=== PATIENT | female | born 1940 | race Caucasian/White ===

== ENCOUNTER 2017-03-05 10:27 | Observation (INO) | payer OTHER, BC ==
[~2017-03-05] VITALS: Ht 167.6 cm; Wt 85.8 kg
[2017-03-05] MEDS ORDERED: SODIUM CHLORIDE 0.9% 1000ML 1,000 ML IV STA (11:58)
[2017-03-05] MEDS ORDERED: ONDANSETRON INJ 2 MG/ML 2 ML VIAL IV STA (11:58)
--- NOTE | 2017-03-05 12:03 | EMERGENCY ROOM VISIT NOTE ---
History Report prepared by Marcio: Heather Allen Under the Supervision of: Dr. Juan Rutledge M.D. First contact with patient: 11:51 Chief Complaint: WEAKNESS Stated Complaint: WEAK;LIGHT HEADED Nursing Triage Summary: poor appetite x3 days History of Present Illness The patient is a 76 year old female who presents to the Emergency Room with complaints of persistent weakness for three days YARD HAND. She notes that she developed a coarse productive cough with phlegm three days ago. She notes her ribs hurt from all of the coughing. She currently rates her pain a 5/10 in severity. She notes vomiting, chills, loss of appetite, general weakness, and lightheadedness. She notes that she has not eaten much in three days. She denies any fevers or urinary symptoms. She denies any cardiac disease or lung disease. She received the flu shot this year. She was able to take her blood pressure medication for the first time today since the onset of her symptoms. Source of History: patient Onset: three days YARD HAND Position: other (global ) Symptom Intensity: 5/10 Quality: other (weakness) Timing: other (persistent) Associated Symptoms: + chills, + vomiting, + weakness (general ), No fevers , No urinary symptoms Note: She notes loss of appetite and lightheadedness. Review of Systems See HPI for pertinent positives & negatives. A total of 10 systems reviewed and were otherwise negative. Past Medical & Surgical Medical Problems: (1) HLD (hyperlipidemia) (2) HTN (hypertension) (3) Osteoporosis Family History Family history was reviewed; no changes noted. Social History Smoking Status: Never Smoker Smokeless Tobacco Use: No Alcohol Use: occasionally Drug Use: none Marital Status: Housing Status: lives with significant other Occupation Status: unemployed Current/Historical Medications Scheduled Aspirin (Aspirin Ec), 81 MG PO DAILY Calcium Carbonate-Cholecalcife (Calcium 600 + D 600-200 mg-Unit), 1 TAB PO DAILY Hydrochlorothiazide (Hctz), 12.5 MG PO DAILY Ibuprofen (Advil), 400 MG PO BID Metoprolol Succ (Toprol Xl) (Toprol-Xl), 50 MG PO DAILY Multiple Vitamins W/ Minerals (Ocuvite Extra), 1 TAB PO DAILY Allergies Coded Allergies: No Known Allergies (Unverified , 03/05/17) Physical Exam Vital Signs Date Time Temp Pulse Resp B/P (MAP) Pulse Ox O2 Delivery O2 Flow Rate FiO2 03/05/17 13:27 66 27 03/05/17 13:26 139/84 03/05/17 12:16 65 03/05/17 12:12 60 18 03/05/17 11:57 63 23 03/05/17 11:55 97 Room Air 03/05/17 11:54 68 20 117/78 97 Room Air 03/05/17 11:46 117/78 03/05/17 10:51 37.2 70 18 121/77 93 Room Air Physical Exam GENERAL: Patient is in no acute distress. HEENT: No acute trauma, normocephalic atraumatic, mucous membranes dry, no nasal congestion, no scleral icterus. NECK: No stridor, no adenopathy, no meningismus, trachea is midline. LUNGS: Crackles at left base, though clear with deeper breathing, no wheezes. No respiratory distress. HEART: Without murmurs gallops or rubs, regular rate and rhythm. ABDOMEN: Soft, nontender, bowel sounds positive, no hernias, no peritonitis. EXTREMITIES: No cyanosis or edema, full range of motion of all the joints without pain or difficulty, no signs for acute trauma. NEUROLOGIC: Oriented x 3, no acute motor or sensory deficits, no focal weakness. SKIN: No rash, no jaundice, no diaphoresis. Medical Decision & Procedures ER Provider Diagnostic Interpretation: Radiology results as stated below per my review and radiologist interpretation: CHEST ONE VIEW PORTABLE CLINICAL HISTORY: EVALUATE ALTERED MENTAL STATUS/WEAKNESS dyspnea COMPARISON STUDY: No previous studies for comparison. FINDINGS: Moderate cardiomegaly. Lungs are clear. Diaphragms smooth. Costophrenic angles are sharp. IMPRESSION: Moderate cardiomegaly. Otherwise negative study. The above report was generated using voice recognition software. It may contain grammatical, syntax or spelling errors. Electronically signed by: Alejandro Jaquez M.D. 03/05/2017 12:18 PM Dictated Date/Time: 03/05/2017 12:17 PM Laboratory Results 03/05/17 11:45 Red Blood Count 4.61, Mean Corpuscular Volume 91.1, Mean Corpuscular Hemoglobin 31.7, Mean Corpuscular Hemoglobin Concent 34.8, Mean Platelet Volume 9.7, Neutrophils (%) (Auto) 50.2, Lymphocytes (%) (Auto) 29.4, Monocytes (%) (Auto) 19.8, Eosinophils (%) (Auto) 0.2, Basophils (%) (Auto) 0.2, Neutrophils # (Auto ) 2.79, Lymphocytes # (Auto) 1.63, Monocytes # (Auto) 1.10, Eosinophils # (Auto ) 0.01, Basophils # (Auto) 0.01 03/05/17 11:45 Test 03/05/17 11:45 03/05/17 12:06 03/05/17 13:20 White Blood Count 5.55 K/uL (4.8-10.8) Red Blood Count 4.61 M/uL (4.2-5.4) Hemoglobin 14.6 g/dL (12.0-16.0) Hematocrit 42.0 % (37-47) Mean Corpuscular Volume 91.1 fL (80-100) Mean Corpuscular Hemoglobin 31.7 pg (25-34) Mean Corpuscular Hemoglobin Concent 34.8 g/dl (32-36) Platelet Count 260 K/uL (130-400) Mean Platelet Volume 9.7 fL (7.4-10.4) Neutrophils (%) (Auto) 50.2 % Lymphocytes (%) (Auto) 29.4 % Monocytes (%) (Auto) 19.8 % Eosinophils (%) (Auto) 0.2 % Basophils (%) (Auto) 0.2 % Neutrophils # (Auto) 2.79 K/uL (1.4-6.5) Lymphocytes # (Auto) 1.63 K/uL (1.2-3.4) Monocytes # (Auto) 1.10 K/uL (0.11-0.59) Eosinophils # (Auto) 0.01 K/uL (0-0.5) Basophils # (Auto) 0.01 K/uL (0-0.2) RDW Standard Deviation 44.5 fL (36.4-46.3) RDW Coefficient of Variation 13.5 % (11.5-14.5) Immature Granulocyte % (Auto) 0.2 % Immature Granulocyte # (Auto) 0.01 K/uL (0.00-0.02) Anion Gap 10.0 mmol/L (3-11) Est Creatinine Clear Calc Drug Dose 54.5 ml/min Estimated GFR () 69.1 Estimated GFR (Non- 59.6 BUN/Creatinine Ratio 19.3 (10-20) Calcium Level 8.7 mg/dl (8.5-10.1) Magnesium Level 2.1 mg/dl (1.8-2.4) Total Bilirubin 0.7 mg/dl (0.2-1) Aspartate Amino Transf (AST/SGOT) 38 U/L (15-37) Alanine Aminotransferase (ALT/SGPT) 31 U/L (12-78) Alkaline Phosphatase 63 U/L (45-117) Troponin I 0.234 ng/ml (0-0.045) Total Protein 7.0 gm/dl (6.4-8.2) Albumin 3.4 gm/dl (3.4-5.0) Globulin 3.6 gm/dl (2.5-4.0) Albumin/Globulin Ratio 0.9 (0.9-2) Influenza Type A Antigen POS for Influ A (NEG) Influenza Type B Antigen Neg for Influ B (NEG) Urine Color YELLOW Urine Appearance CLEAR (CLEAR) Urine pH 5.0 (4.5-7.5) Urine Specific [place] 1.013 (1.000-1.030) Urine Protein NEG (NEG) Urine Glucose (UA) NEG (NEG) Urine Ketones NEG (NEG) Urine Occult Blood NEG (NEG) Urine Nitrite NEG (NEG) Urine Bilirubin NEG (NEG) Urine Urobilinogen NEG (NEG) Urine Leukocyte Esterase NEG (NEG) Laboratory results reviewed by me. Medications Administered Medications (Trade) Dose Ordered Sig/Geoff Route Start Time Stop Time Status Last Admin Dose Admin Ondansetron HCl (Zofran Inj) 4 mg NOW STAT IV 03/05/17 11:58 03/05/17 12:00 DC 03/05/17 12:10 4 MG Sodium Chloride 1,000 ml @ 999 mls/hr Q1H1M STAT IV 03/05/17 11:58 03/05/17 13:06 DC 03/05/17 12:09 999 MLS/HR Potassium Chloride (Kcl 10 Meq / Wtr) 10 meq NOW STAT IV 03/05/17 12:54 03/05/17 13:06 DC 03/05/17 13:34 10 MEQ Potassium Chloride (Klor-Con M10) 40 meq NOW STAT PO 03/05/17 13:48 12/26/17 13:50 DC 03/05/17 14:02 40 MEQ ECG Indication: weakness Rate (beats per minute): 61 Rhythm: sinus rhythm Findings: 1st degree AV block, LBBB, no acute ischemic change, no ectopy ED Course 1153: The patient was evaluated in room C1B. A complete history and physical exam was performed. 1158: Ordered Sodium Chloride 1,000 ml @ 999 mls/hr IV and Zofran 4 mg IV 1254: Ordered Potassium Chloride 10 meq IV 1325: I reassessed the patient at this time. She is resting comfortably. 1343: I reassessed the patient at this time. She is resting comfortably. The patient will be further evaluated. 1348: Ordered Potassium Chloride 40 meq PO 1352: I spoke with Ruth York PA-C. We discussed the patients case. The patient will be evaluated by the [facility] for further management. Medical Decision The patient is a 76 year old female who presents to the ED with complaints of general weakness. Differential diagnoses considered include bronchitis, dehydration, electrolyte imbalance, anemia, influenza, UTI, current ischemia. There is no leukocytosis or concerning anemia. Influenza testing is positive for influenza A. Renal panel testing shows a low potassium, no kidney failure. No hepatitis. Urinalysis does not show infection. EKG shows a sinus rhythm with a first-degree AV block and a left bundle branch block. No obvious acute ischemia. Cardiac enzyme testing times one is slightly elevated, this could be consistent with cardiac injury or strain. Chest film does not show pneumonia or CHF. The patient received IV saline. She was ordered for IV potassium but could not tolerate the burning at the IV site. The IV potassium was halted. She was ordered for oral potassium. She received IV Zofran. The patient presents with flulike symptoms and does have the flu by testing. She also is dehydrated and hypokalemic and has a mild troponin elevation. Given her findings, a hospital stay is warranted. Further cardiac workup is required. I spoke to the patient and case management. The on-call hospitalist was consulted. Medication Reconcilliation Current Medication List: was personally reviewed by me Blood Pressure Screening Patient's blood pressure: Normal blood pressure Consults Time Called: 1345 Consulting Physician: Ruth York PA-C Returned Call: 1352 I spoke with Ruth York PA-C. We discussed the patients case. The patient will be evaluated by the [facility] for further management. Impression Primary Impression: Influenza A Additional Impressions: Hypokalemia Elevated troponin Scribe Attestation The scribe's documentation has been prepared under my direction and personally reviewed by me in its entirety. I confirm that the note above accurately reflects all work, treatment, procedures, and medical decision making performed by me. Departure Information Dispostion Being Evaluated By Hospitalist Referrals Hamilton Graham MD (PCP) Patient Instructions My [facility] Problem Qualifiers
--- NOTE | 2017-03-05 12:20 | DIAGNOSTIC IMAGING REPORT ---
CHEST ONE VIEW PORTABLE CLINICAL HISTORY: EVALUATE ALTERED MENTAL STATUS/WEAKNESS dyspnea COMPARISON STUDY: No previous studies for comparison. FINDINGS: Moderate cardiomegaly. Lungs are clear. Diaphragms smooth. Costophrenic angles are sharp. IMPRESSION: Moderate cardiomegaly. Otherwise negative study. The above report was generated using voice recognition software. It may contain grammatical, syntax or spelling errors. Electronically signed by: Alejandro Jaquez M.D. 03/05/2017 12:18 PM Dictated Date/Time: 03/05/2017 12:17 PM
[2017-03-05 12:34] LABS: BASO % 0.2 %; BASO ABS # 0.01 K/uL (0-0.2); EOS % 0.2 %; EOS ABS # 0.01 K/uL (0-0.5); HEMOGLOBIN 14.6 g/dL (12.0-16.0); IG# 0.01 K/uL (0.00-0.02); LYMPH % 29.4 %; LYMPH ABS # 1.63 K/uL (1.2-3.4); MEAN CELL VOLUME 91.1 fL (80-100); MEAN CORPUSCULAR HEMOGLOBIN 31.7 pg (25-34); MEAN CORPUSCULAR HGB CONC 34.8 g/dl (32-36); MEAN PLATELET VOLUME 9.7 fL (7.4-10.4); MONO % 19.8 %; NEUT % 50.2 %; NEUT ABS # 2.79 K/uL (1.4-6.5); PLATELET COUNT 260 K/uL (130-400); RED CELL DISTRIBUTION WIDTH CV 13.5 % (11.5-14.5); RED CELL DISTRIBUTION WIDTH SD 44.5 fL (36.4-46.3); WHITE BLOOD COUNT 5.55 K/uL (4.8-10.8)
[2017-03-05 12:50] LABS: CREATININE 0.92 mg/dl (0.60-1.20)
[2017-03-05 12:51] LABS: ALBUMIN 3.4 gm/dl (3.4-5.0); CALCIUM 8.7 mg/dl (8.5-10.1); POTASSIUM 2.9 mmol/L (3.5-5.1)
[2017-03-05] MEDS ORDERED: POTASSIUM CHLORIDE 10 MEQ / 100ML WTR IV STA (12:54)
[2017-03-05 13:05] LABS: INFLUENZA B ANTIGEN Neg for Influ B (NEG)
[2017-03-05] MEDS ORDERED: POTASSIUM CHLORIDE 10 MEQ TABCR PO STA (13:48)
[2017-03-05] MEDS ORDERED: IV FLUIDS COMPLETED PRN (14:45)
[2017-03-05] MEDS ORDERED: IBUP-1050 PO (14:58)
[2017-03-05] MEDS ORDERED: HYDR25TA4 PO (14:58)
[2017-03-05] MEDS ORDERED: METO50TA8 PO (14:58)
[2017-03-05] MEDS ORDERED: ATOR10TA82 PO (14:58)
[2017-03-05] MEDS ORDERED: CALC-452 PO (14:58)
[2017-03-05] MEDS ORDERED: MULT-189 PO (14:58)
[2017-03-05] MEDS ORDERED: ASPI81TA28 PO (14:58)
[2017-03-05] MEDS ORDERED: ONDANSETRON INJ 2 MG/ML 2 ML VIAL IV PRN (15:00)
[2017-03-05] MEDS ORDERED: ACETAMINOPHEN 325 MG TAB PO PRN (15:00)
--- NOTE | 2017-03-05 15:34 | History and Physical ---
History & Physical Date & Time of Service: Mar 05, 2017 at 15:09 Chief Complaint: Weak;Light Headed Primary Care Physician: Hamilton Graham MD History of Present Illness Source: patient, family (daughter at bedside), clinic records, hospital records This is a 76yo F with a PMH of HTN, HLD and osteoporosis who presents with worsening lightheadedness and generalized weakness. Developed flu-like symptoms 4 days ago, with subjective fever, chills, nausea, vomiting and productive cough. States that she had rib pain from coughing a few days ago but respiratory symptoms are improving. Has not been able to tolerate PO intake for 3 days and was starting to feel lightheaded with any movement, so daughter brought her into ED for IV fluids. Patient was found to have influenza A on PCR. Is hypokalemic to 2.9 and has an elevated troponin of 0.234. Endorses lightheadedness and nausea currently but denies fever, chills, headache, visual changes, chest pain, SOB, abd pain, vomiting, urinary symptoms or LE swelling. Denies any history of MD or CHF. Was unable to take her BP meds for 3 days but took them this morning. Family History FH: CHF (congestive heart failure) Social History Smoking Status: Never Smoker Smokeless Tobacco Use: No Alcohol Use: occasionally Drug Use: none Marital Status: Housing status: lives with significant other Occupational Status: unemployed Multi-Drug Resistant Organisms History of MDRO: No Allergies Coded Allergies: No Known Allergies (Unverified , 03/05/17) Home Medications Scheduled Aspirin (Aspirin Ec), 81 MG PO DAILY Calcium Carbonate-Cholecalcife (Calcium 600 + D 600-200 mg-Unit), 1 TAB PO DAILY Hydrochlorothiazide (Hctz), 12.5 MG PO DAILY Ibuprofen (Advil), 400 MG PO BID Metoprolol Succ (Toprol Xl) (Toprol-Xl), 50 MG PO DAILY Multiple Vitamins W/ Minerals (Ocuvite Extra), 1 TAB PO DAILY Review of Systems Ten systems reviewed and negative except as noted in the HPI. Physical Exam Vital Signs Date Time Temp Pulse Resp B/P (MAP) Pulse Ox O2 Delivery O2 Flow Rate FiO2 03/05/17 13:27 66 27 03/05/17 13:26 139/84 03/05/17 12:16 65 03/05/17 12:12 60 18 03/05/17 11:57 63 23 03/05/17 11:55 97 Room Air 03/05/17 11:54 68 20 117/78 97 Room Air 03/05/17 11:46 117/78 03/05/17 10:51 37.2 70 18 121/77 93 Room Air General Appearance: WD/WN, no apparent distress (wearing mask ) Head: normocephalic, atraumatic Eyes: normal inspection, PERRL, sclerae normal ENT: normal ENT inspection, hearing grossly normal, pharynx normal (dry mucous membranes ) Neck: supple, thyroid normal, trachea midline Respiratory/Chest: chest non-tender, no respiratory distress, no accessory muscle use, + rhonchi (Scattered rhonchi, otherwise clear ) Cardiovascular: regular rate, rhythm, no murmur, normal peripheral pulses Abdomen/GI: non tender, soft, no organomegaly Back: normal inspection Extremities/Musculoskelatal: normal inspection, no calf tenderness, no pedal edema Neurologic/Psych: no motor/sensory deficits, alert, normal mood/affect, oriented x 3 Skin: normal color, warm/dry Diagnostics Laboratory Results Results Past 24 Hours Test 03/05/17 11:45 03/05/17 12:06 03/05/17 13:20 Range/Units White Blood Count 5.55 4.8-10.8 K/uL Red Blood Count 4.61 4.2-5.4 M/uL Hemoglobin 14.6 12.0-16.0 g/dL Hematocrit 42.0 37-47 % Mean Corpuscular Volume 91.1 80-100 fL Mean Corpuscular Hemoglobin 31.7 25-34 pg Mean Corpuscular Hemoglobin Concent 34.8 32-36 g/dl Platelet Count 260 130-400 K/uL Mean Platelet Volume 9.7 7.4-10.4 fL Neutrophils (%) (Auto) 50.2 % Lymphocytes (%) (Auto) 29.4 % Monocytes (%) (Auto) 19.8 % Eosinophils (%) (Auto) 0.2 % Basophils (%) (Auto) 0.2 % Neutrophils # (Auto) 2.79 1.4-6.5 K/uL Lymphocytes # (Auto) 1.63 1.2-3.4 K/uL Monocytes # (Auto) 1.10 0.11-0.59 K/uL Eosinophils # (Auto) 0.01 0-0.5 K/uL Basophils # (Auto) 0.01 0-0.2 K/uL RDW Standard Deviation 44.5 36.4-46.3 fL RDW Coefficient of Variation 13.5 11.5-14.5 % Immature Granulocyte % (Auto) 0.2 % Immature Granulocyte # (Auto) 0.01 0.00-0.02 K/uL Sodium Level 133 136-145 mmol/L Potassium Level 2.9 3.5-5.1 mmol/L Chloride Level 96 98-107 mmol/L Carbon Dioxide Level 27 21-32 mmol/L Anion Gap 10.0 3-11 mmol/L Blood Urea Nitrogen 18 7-18 mg/dl Creatinine 0.92 0.60-1.20 mg/dl Est Creatinine Clear Calc Drug Dose 54.5 ml/min Estimated GFR () 69.1 Estimated GFR (Non- 59.6 BUN/Creatinine Ratio 19.3 10-20 Random Glucose 94 70-99 mg/dl Calcium Level 8.7 8.5-10.1 mg/dl Magnesium Level 2.1 1.8-2.4 mg/dl Total Bilirubin 0.7 0.2-1 mg/dl Aspartate Amino Transf (AST/SGOT) 38 15-37 U/L Alanine Aminotransferase (ALT/SGPT) 31 12-78 U/L Alkaline Phosphatase 63 45-117 U/L Troponin I 0.234 0-0.045 ng/ml Total Protein 7.0 6.4-8.2 gm/dl Albumin 3.4 3.4-5.0 gm/dl Globulin 3.6 2.5-4.0 gm/dl Albumin/Globulin Ratio 0.9 0.9-2 Influenza Type A Antigen POS for Influ A NEG Influenza Type B Antigen Neg for Influ B NEG Urine Color YELLOW Urine Appearance CLEAR CLEAR Urine pH 5.0 4.5-7.5 Urine Specific [place] 1.013 1.000-1.030 Urine Protein NEG NEG Urine Glucose (UA) NEG NEG Urine Ketones NEG NEG Urine Occult Blood NEG NEG Urine Nitrite NEG NEG Urine Bilirubin NEG NEG Urine Urobilinogen NEG NEG Urine Leukocyte Esterase NEG NEG Microbiology Results 03/05/17 Blood Culture, Received Pending 03/05/17 Blood Culture, Received Pending Diagnostic Radiology CXR: IMPRESSION: Moderate cardiomegaly. Otherwise negative study. EKG NSR with 1st degree AV block Left axis deviation Left bundle branch block other (When compared to 2013 EKG, LBBB is new. ) Impression Assessment and Plan This is a 76yo F with a PMH of HTN, HLD and osteoporosis who presents with worsening lightheadedness and generalized weakness. Hypokalemia in setting of influenza A: -Hypokalemia of 2.9 2/2 GI losses -Replace and monitor -IVF, droplet precautions for flu Elevated troponin: -No CP, h/o MD or CHF -Could be demand ischemia in setting of flu, poor PO intake x 3 days -However, need to rule out ACS -Risk factors include HTN and HLD -EKG with no acute ischemic changes but LBBB new since 2013 -Trend cardiac enzymes -Consult cardio -Echo -Tele HTN: -Normotensive -Cont home metoprolol, HCTZ HLD: -Has not been taking statin -Fasting lipid panel ordered Osteoporosis: -Cont home calcium + vit D DVT Ppx: Lovenox SQ Code status: FULL PCP: Gladys Dispo: Observation tele. Plan to return home once medically stable. Patient seen in collaboration with Dr. Pena. Please see addendum. Attending Addendum: The patient was seen and examined Flue symptoms for the last 2-3 days ,not getting any better Cough without any yellow sputum Denies ay chest pain ,palpitation or SOB O/E No distress at rest Has been feeling better already Chest-minimally decreased breath sound bilaterally Minimal wheezing ,no crackles Heart-regular Abdomen-benign,no masses Labs and Imaging studies were reviewed Has New LBBB with increased Troponin on Top for Positive for Influenza A,No Pneumonia Discussed with Cardiology Agree with the assessment nd plan. DR Keri Pena Level of Care Telemetry Resuscitation Status FULL RESUSCITATION VTE Prophylaxis VTE Risk Assessment Done? Y/N: Yes Risk Level: Moderate Given or contraindicated: Enoxaparin (Lovenox)SQ
[2017-03-05] MEDS ORDERED: POTASSIUM CHLORIDE 20 MEQ TABCR PO ONE (17:00)
--- NOTE | 2017-03-05 17:00 | NUR ---
Pt received from ed with c/o n/v and weakness. placed on droplet precautions for influenza A positive swab. she is alert and oriented. denies pain or nausea currently. she is afebrile. lungs are diminished. pt reports cough with small amounts of yellow sputum. nsr/sbrady on cardiac cath tech. vital signs stable on room air. tolerating diet and po fluids currently. iv saline lock patent. skin intact and without edema. oriented to room and call motley. call motley in reach at this time. care assumed by Fer Person pts primary nurse.
[2017-03-05 17:12] VITALS: BP 141/92; PULSE 59; TEMP 37.3; O2SAT 96; Ht 167.6 cm; Wt 85.8 kg
[2017-03-05 17:40] LABS: POTASSIUM 3.1 mmol/L (3.5-5.1)
[2017-03-05 17:56] LABS: CKMB 1.2 ng/ml (0.5-3.6)
[2017-03-05] MEDS: SODIUM CHLORIDE 0.9% 1000ML 1,000 ML IV SCH (17:58)
[2017-03-05] MEDS: ENOXAPARIN 40 MG/0.4 ML SYR SC SCH (18:19)
[2017-03-05 20:43] VITALS: BP 122/70; PULSE 63; TEMP 37.3; O2SAT 96
[2017-03-05] MEDS: IBUPROFEN 200 MG TAB PO SCH (21:07)
[2017-03-05 23:54] LABS: POTASSIUM 3.2 mmol/L (3.5-5.1)
[2017-03-06] VITALS (9 sets, daily range): BP systolic 112–161; BP diastolic 65–99; PULSE 56–67; TEMP 36.8–37.3; O2SAT 93–97
--- NOTE | 2017-03-06 | NUR ---
A: Pt lying in bed curled in a ball , she states she is cold but does not wish the nurse to turn up the thermostat. VS were found to be WNL and Pt is NSR in the 60's and has no c/o pain. See EMR for further documentation. Pt will continue to be monitored.
[2017-03-06 00:07] LABS: CKMB 1.2 ng/ml (0.5-3.6)
[2017-03-06] MEDS: SODIUM CHLORIDE 0.9% 1000ML 1,000 ML IV SCH ×2 (03:06→14:30)
--- NOTE | 2017-03-06 04:01 | NUR ---
A: no change in assessment VS remain WNL and Pt continues to be NSR with n c/o pain. See EMR for further documentation. Pt will continue to be monitored.
[2017-03-06 06:36] LABS: HEMATOCRIT 38.7 % (37-47); HEMOGLOBIN 13.1 g/dL (12.0-16.0); MEAN CELL VOLUME 92.1 fL (80-100); MEAN CORPUSCULAR HEMOGLOBIN 31.2 pg (25-34); MEAN CORPUSCULAR HGB CONC 33.9 g/dl (32-36); MEAN PLATELET VOLUME 8.7 fL (7.4-10.4); PLATELET COUNT 230 K/uL (130-400); RED CELL DISTRIBUTION WIDTH CV 13.7 % (11.5-14.5); RED CELL DISTRIBUTION WIDTH SD 45.9 fL (36.4-46.3)
[2017-03-06 07:16] LABS: CALCIUM 7.9 mg/dl (8.5-10.1); CREATININE 0.61 mg/dl (0.60-1.20); POTASSIUM 3.3 mmol/L (3.5-5.1)
[2017-03-06] MEDS ORDERED: POTASSIUM CHLORIDE 10 MEQ TABCR PO STA (07:47)
--- NOTE | 2017-03-06 08:00 | NUR ---
Patient A+Ox4, in NAD. VSS. SR on monitor with 1st degree AV block and IVCD. No edema. Pulses palpable throughout. She denies any CP/pressure. Lung sounds mostly clear; some slight wheezing heard in right middle lobe. Sats WNL on RA. Occasional RADAR OPERATOR cough. Denies nausea/vomiting. She states that it's been a few days since her last BM. Tolerating diet. Voiding CYU in restroom. Skin intact. #20 right wrist intact and infusing NS @ 50 ml/hr. Explained plan for day. Patient denies any needs. Will continue to monitor.
[2017-03-06] MEDS: ASPIRIN 81 MG ECTAB PO SCH (08:32)
[2017-03-06] MEDS: IBUPROFEN 200 MG TAB PO SCH ×2 (08:33→20:46)
[2017-03-06] MEDS: HYDROCHLOROTHIAZIDE 25 MG TAB PO SCH (08:34)
[2017-03-06] MEDS: METOPROLOL SUCC 50MG EXT REL TAB PO SCH (08:34)
[2017-03-06] MEDS: CALCIUM 600MG + VIT D 400 IU TAB PO SCH (08:34)
[2017-03-06] MEDS: CEROVITE ADV FORMULA TAB PO SCH (08:34)
--- NOTE | 2017-03-06 11:36 | ECHOCARDIOGRAM REPORT ---
*NOTICE TO RECEIVING REPUBLICAN AGENCY This information is strictly Confidential and protected under [place] law. [place] law prohibits you from making any further disclosure of this information unless further disclosure is expressly permitted by the written consent of the person to whom it pertains or is authorized by law. A general authorization for the release of medical or other information is not sufficient for this purpose. Hospital accepts no responsibility if the information is made available to any other person, INCLUDING THE PATIENT. Interpretation Summary * Name: MOISE AIKEN Study Date: 03/05/2017 03:35 PM BP: 139/84 mmHg * Patient Location: [facility] HR: 66 * : 1940 (M/d/yyyy) Gender: Female Height: 66 in * Age: 76 yrs Ethnicity: [place] Weight: 181 lb * Ordering Physician: Ruth Mabry PA-C * Referring Physician: Self, Referred * Performed By: Jonny Cuevas RCS * * Reason For Study: Elevated Troponin * BSA: 1.9 m2 * -- Conclusions -- * There is mild concentric left ventricular hypertrophy. * Ejection Fraction = 50-55%. * The right ventricular systolic function is normal. * The left atrium is mildly dilated. * Right atrial size is normal. * Small pericardial effusion. * No significant valvular pathology Procedure Details * A complete two-dimensional transthoracic echocardiogram was performed (2D, M-mode, Doppler and color flow Doppler). Left Ventricle * The left ventricle is normal in size. * There is mild concentric left ventricular hypertrophy. * Ejection Fraction = 50-55%. * The left ventricular wall motion is normal. Right Ventricle * The right ventricle is grossly normal size. * The right ventricular systolic function is normal. Atria * The left atrium is mildly dilated. * Right atrial size is normal. * There is no evidence of atrial septal defect, but resolution does not allow assessment for a patent foramen ovale. Mitral Valve * The mitral valve leaflets appear thickened, but open well. * Significant mitral regurgitation is absent. Tricuspid Valve * The tricuspid valve anatomy is normal. * Significant tricuspid regurgitation is absent. Aortic Valve * The aortic valve is trileaflet. * The aortic valve opens well. * There is no significant aortic regurgitation. Pulmonic Valve * The pulmonic valve is not well visualized. * There is no significant pulmonary regurgitation. Great Vessels * The aortic root and proximal ascending aorta are normal sized. Pericardium/Pleural * Small pericardial effusion. Left Ventricular Diastolic Function * Grade I diastolic dysfunction, (abnormal relaxation pattern). MMode 2D Measurements and Calculations IVSd 1.1 cm IVSs 1.4 cm LVIDd 4.5 cm LVIDs 3.1 cm LVPWd 1.1 cm LVPWs 1.2 cm IVS/LVPW 10 FS 31.4 % EDV(Teich) 91.1 ml ESV(Teich) 36.9 ml EF(Teich) 59.4 % EDV(cubed) 89.4 ml ESV(cubed) 28.9 ml EF(cubed) 67.7 % % IVS thick 23.7 % % LVPW thick 5.8 % LV mass(C)d 172.6 grams LV mass(C)dI 90.0 grams/m\S\2 LV mass(C)s 121.5 grams LV mass(C)sI 63.4 grams/m\S\2 SV(Teich) 54.1 ml SI(Teich) 28.2 ml/m\S\2 SV(cubed) 60.5 ml SI(cubed) 31.6 ml/m\S\2 Ao root diam 3.8 cm Ao root area 11.6 cm\S\2 ACS 1.5 cm LA dimension 4.5 cm asc Aorta Diam 4.8 cm LA/Ao 1.2 EDV(MOD-sp4) 152.0 ml ESV(MOD-sp4) 77.0 ml EF(MOD-sp4) 49.3 % EDV(MOD-sp2) 144.0 ml ESV(MOD-sp2) 82.0 ml EF(MOD-sp2) 43.1 % SV(MOD-sp4) 75.0 ml SI(MOD-sp4) 39.1 ml/m\S\2 SV(MOD-sp2) 62.0 ml SI(MOD-sp2) 32.3 ml/m\S\2 Doppler Measurements and Calculations MV E max henrik 75.1 cm/sec MV A max henrik 86.4 cm/sec MV E/A 0.87 MV P1/2t max henrik 74.7 cm/sec MV P1/2t 57.0 msec MVA(P1/2t) 3.9 cm\S\2 MV dec slope 384.4 cm/sec\S\2 MV dec time 0.24 sec Ao V2 max 139.3 cm/sec Ao max PG 7.8 mmHg Ao max PG (full) 5.9 mmHg LV V1 max PG 1.8 mmHg LV V1 max 67.6 cm/sec PA V2 max 68.0 cm/sec PA max PG 1.9 mmHg TR max henrik 196.4 cm/sec
--- NOTE | 2017-03-06 12:00 | NUR ---
Patient in NAD. Continues in NSR on monitor with 1st degree AV block and IVCD. Denies any CP/pressure. No changes noted to assessment. Will continue to monitor.
--- NOTE | 2017-03-06 12:11 | CARDIOLOGY CONSULTATION ---
DATE OF CONSULTATION: 03/06/2017 CONSULTATION FOR: [facility]. REASON FOR CONSULTATION: Abnormal cardiac markers. HISTORY OF PRESENT ILLNESS: This is a 76-year-old female who has no prior history of heart disease. Except for some mild hypertension, she has minimal risk factors. The patient developed flu-like symptoms approximately 4 days ago. She has had usual flu-like symptoms with a fever, chills, nausea and productive cough. She has had some chest discomfort related to her coughing. She was brought to the Emergency Department by her daughter. She tested positive for influenza A. The patient was dehydrated on admission with hypokalemia. She has since had her potassium supplemented and being given IV fluids. She currently feels improvement. After admission, her cardiac troponins were elevated. The cardiac troponin has peaked at 0.234. She also has a new left bundle branch block with first degree AV block on her EKG. I reviewed her echocardiogram from this morning. Overall, she has preserved left ventricular systolic function as well as normal right ventricular systolic function. There is no significant valvular pathology. The patient has a small pericardial effusion without evidence of tamponade. I have been asked to see her in regard to the abnormal cardiac markers and a new left bundle branch block. ALLERGIES: No known medical allergies. PAST MEDICAL HISTORY: As outlined in history of chief complaint, the patient has a history of mild essential hypertension. No prior history of heart disease, diabetes, strokes or kidney disease. SOCIAL HISTORY: She has never smoked. She is and lives with her family. FAMILY MEDICAL HISTORY: Noncontributory. REVIEW OF SYSTEMS: A 10-point review of systems is negative except for the history of chief complaint. PHYSICAL EXAMINATION: GENERAL: She is alert and oriented. VITAL SIGNS: Blood pressure is 120/80 and pulse is regular at 70 beats per minute. She is afebrile. HEENT: She is normocephalic. Pupils are equal and reactive to light. Extraocular muscles are intact bilaterally. NECK: The neck veins are flat. Carotids have good upstrokes bilaterally without bruits. Thyroid is nonpalpable. RESPIRATORY: Breath sounds equal bilaterally and clear to auscultation. CARDIOVASCULAR: Heart has a regular rhythm. Normal S1 and S2. No S3 or S4. No cardiac rubs or murmurs. GASTROINTESTINAL: Abdomen is soft and nontender without organomegaly. EXTREMITIES: Free of edema, digit clubbing, or cyanosis. NEUROLOGIC: Grossly intact. SKIN: Warm to touch. LYMPH NODES: Negative to palpation. IMPRESSION: 1. Influenza A. 2. Dehydration. 3. Electrolyte abnormalities including hypokalemia. 4. Borderline elevation in troponins. RECOMMENDATIONS: I do not believe the patient is having acute coronary syndrome. I believe the elevated troponins may be due to stress related to her viral illness. She also has been dehydrated with electrolyte abnormalities. Her echocardiogram shows overall preserved left ventricular systolic function. I would recommend supportive care for this patient with correction of her electrolyte abnormalities and IV hydration. I will repeat cardiac troponin as well as an EKG in the morning.
[2017-03-06] MEDS ORDERED: POLYETHYLENE (MIRALAX) 17 GM PACK PO PRN (12:15)
[2017-03-06] MEDS ORDERED: DOCUSATE SODIUM 100 MG CAP PO PRN (12:15)
--- NOTE | 2017-03-06 16:00 | NUR ---
Patient in NAD. Continues in NSR with 1st degree AV block on monitor. BP improved. Denies any CP/pressure. Sats WNL on RA. Lungs clear. Occasional [employer] cough. No BM yet- administered Miralax. Voiding CYU. Patient hopeful for discharge home tomorrow morning. Denies further needs at this time. Will continue to monitor.
--- NOTE | 2017-03-06 16:54 | Progress Note ---
Medicine Progress Note Date & Time of Visit: Mar 06, 2017 at 16:42. Subjective Patient is anxious to go home, she reports feeling better but does have some orthopnea. No overnight events noted. Denies any CP or palpitations. Denies any N/V. States she is still coughing but not as much. Tolerating PO. Denies any BM. Objective Last 8 Hrs Date Time Temp Pulse Resp B/P (MAP) Pulse Ox O2 Delivery O2 Flow Rate FiO2 03/06/17 15:15 37.3 66 18 112/70 (84) 93 Room Air 03/06/17 14:31 112/65 (81) 03/06/17 12:34 36.8 67 20 161/99 (119) 95 Room Air 03/06/17 12:00 Room Air Physical Exam: GENERAL: Patient is in no acute distress. HEENT: No acute trauma, normocephalic, mucous membranes moist, no nasal congestion, no scleral icterus, conjunctivae clear NECK: No stridor, trachea is midline. LUNGS: Clear to auscultation bilaterally, no wheeze, no rhonchi, breath sounds equal. HEART: Without murmurs gallops or rubs, regular rate and rhythm. No JVD ABDOMEN: Soft, nontender, bowel sounds positive EXTREMITIES: No cyanosis or edema, full range of motion of all the joints without pain or difficulty, no signs for acute trauma. NEUROLOGIC: Oriented x 3, no acute motor or sensory deficits, no focal weakness. SKIN: No rash, no jaundice, no diaphoresis. Laboratory Results: Last 24 Hours Test 03/05/17 17:12 03/05/17 23:23 03/06/17 06:23 03/06/17 11:57 Prothrombin Time 10.2 SECONDS Prothromb Time International Ratio 1.0 Potassium Level 3.1 mmol/L 3.2 mmol/L 3.3 mmol/L Total Creatine Kinase 133 U/L 116 U/L Creatine Kinase MB 1.2 ng/ml 1.2 ng/ml Creatine Kinase MB Ratio 0.9 1.0 Troponin I 0.197 ng/ml 0.222 ng/ml 0.240 ng/ml White Blood Count 4.90 K/uL Red Blood Count 4.20 M/uL Hemoglobin 13.1 g/dL Hematocrit 38.7 % Mean Corpuscular Volume 92.1 fL Mean Corpuscular Hemoglobin 31.2 pg Mean Corpuscular Hemoglobin Concent 33.9 g/dl RDW Standard Deviation 45.9 fL RDW Coefficient of Variation 13.7 % Platelet Count 230 K/uL Mean Platelet Volume 8.7 fL Sodium Level 138 mmol/L Chloride Level 105 mmol/L Carbon Dioxide Level 25 mmol/L Anion Gap 8.0 mmol/L Blood Urea Nitrogen 13 mg/dl Creatinine 0.61 mg/dl Est Creatinine Clear Calc Drug Dose 83.3 ml/min Estimated GFR () 100.6 Estimated GFR (Non- 86.8 BUN/Creatinine Ratio 21.4 Random Glucose 89 mg/dl Calcium Level 7.9 mg/dl Magnesium Level 2.1 mg/dl Triglycerides Level 78 mg/dl Cholesterol Level 196 mg/dl HDL Cholesterol 52 mg/dl LDL Cholesterol, Calculated 128 mg/dl VLDL Cholesterol, Calculated 16 mg/dl Cholesterol/HDL Ratio 3.8 Assessment & Plan TROPONIN ELEVATION: -no symptoms of CP -serial CM have plateaued -EKG with new appearance of LBBB (new since 2012); -Cardiology consulted, appreciate recs -repeat EKG in AM -TTE: EF 50-55% without wall motion abnormalities, small pericardial effusion -most likely demand ischemia in setting of flu, poor PO intake x 3 days -risk factors include HTN and hyperlipidemia, no prior DE -no events noted on tele HYPOKALEMIA: -likely related to GI losses from flu; 2.9-->3.3 -replete and recheck -continued on IV fluid, rate decreased INFLUENZA A: -continue droplet precautions for flu -out of window for tamiflu, supportive care only HTN: -normotensive -continue home meds metoprolol, HCTZ HYPERLIPIDEMIA: -has not been taking statin at home -lipid panel: LDL 128, Total 196, HDL 52 -encouraged to resume given above labs OSTEOPOROSIS: -Continue home calcium + vit D Procedures: TTE Report: * -- Conclusions -- * There is mild concentric left ventricular hypertrophy. * Ejection Fraction = 50-55%. * The right ventricular systolic function is normal. * The left atrium is mildly dilated. * Right atrial size is normal. * Small pericardial effusion. * No significant valvular pathology Current Inpatient Medications: Current Inpatient Medications Medications (Trade) Dose Ordered Sig/Geoff Route Start Time Stop Time Status Last Admin Dose Admin Miscellaneous (Iv Fluids Completed) 1 ea PRN PRN N/A 12/26/17 14:45 03/05/18 14:44 Enoxaparin Sodium (Lovenox Inj) 40 mg Q24H SC 03/05/17 18:00 04/04/17 17:59 03/05/17 18:19 40 MG Acetaminophen (Tylenol Tab) 650 mg Q4H PRN PO 03/05/17 15:00 04/04/17 14:59 Ondansetron HCl (Zofran Inj) 4 mg Q6H PRN IV 03/05/17 15:00 04/04/17 14:59 Sodium Chloride 1,000 ml @ 50 mls/hr Q20H IV 03/05/17 15:00 04/04/17 14:59 03/06/17 14:30 50 MLS/HR Aspirin (Ecotrin Tab) 81 mg DAILY PO 03/06/17 09:00 04/05/17 08:59 03/06/17 08:32 81 MG Hydrochlorothiazide (Hydrochlorothiazide Tab) 12.5 mg DAILY PO 03/06/17 09:00 04/05/17 08:59 03/06/17 08:34 12.5 MG Ibuprofen (Advil Tab) 400 mg BID PO 03/05/17 21:00 04/04/17 20:59 03/06/17 08:33 400 MG Metoprolol Succinate (Toprol Xl Tab) 50 mg DAILY PO 03/06/17 09:00 04/05/17 08:59 03/06/17 08:34 50 MG Multivitamins/ Minerals (Multivitamin W/ Minerals Tab) 1 tab DAILY PO 03/06/17 09:00 04/05/17 08:59 03/06/17 08:34 1 TAB Calcium/Vitamin D (Caltrate Plus Tab) 1 tab DAILY PO 03/06/17 09:00 04/05/17 08:59 03/06/17 08:34 1 TAB Polyethylene (Miralax Powder Packet) 17 gm DAILY PRN PO 03/06/17 12:15 04/05/17 12:14 03/06/17 16:00 17 GM Docusate Sodium (coLACE CAP) 100 mg BID PRN PO 03/06/17 12:15 04/05/17 12:14
[2017-03-06] MEDS: ENOXAPARIN 40 MG/0.4 ML SYR SC SCH (18:12)
--- NOTE | 2017-03-06 20:00 | NUR ---
A: Patient in room, A+O x4, resting comfortably in bed at this time. Denies pain, ambulating independently to bathroom. Sinus rhythm noted on monitor. Lungs clear, patient has frequent dry non-productive cough. Denies pain, N/V/D and chills at this time. Continues to be in droplet precautions. NSS infusing at 50 mL/hr via right wrist 20 gauge. Call motley within reach, will continue to monitor.
--- NOTE | 2017-03-06 22:00 | NUR ---
A: patient in room, no change in assessment. MIVF continues to infuse at this time.
--- NOTE | 2017-03-07 00:01 | NUR ---
A: Patient in room, resting in bed at this time. Denies pain. Sinus rhythm with 1st degree HB noted on monitor. No change in assessment. Call motley within reach. will continue to monitor.
[2017-03-07 00:29] VITALS: BP 112/65; PULSE 59; TEMP 37.2; O2SAT 95
--- NOTE | 2017-03-07 02:00 | NUR ---
A: Patient in room, resting in bed. MIVF infusing. Sinus rhythm noted on monitor.
--- NOTE | 2017-03-07 04:00 | NUR ---
A: Patient in room, resting comfortably in bed at this time. Ambulates to bathroom. MIVF infusing. Patient denies pain at this time. Call motley within reach, sinus rhythm on monitor. Will continue to monitor.
[2017-03-07 04:42] VITALS: BP 108/79; PULSE 55; TEMP 37.1; O2SAT 95
[2017-03-07 05:51] LABS: HEMATOCRIT 38.1 % (37-47); HEMOGLOBIN 12.9 g/dL (12.0-16.0); MEAN CELL VOLUME 92.7 fL (80-100); MEAN CORPUSCULAR HEMOGLOBIN 31.4 pg (25-34); MEAN CORPUSCULAR HGB CONC 33.9 g/dl (32-36); MEAN PLATELET VOLUME 9.1 fL (7.4-10.4); PLATELET COUNT 223 K/uL (130-400); RED CELL DISTRIBUTION WIDTH CV 13.6 % (11.5-14.5); RED CELL DISTRIBUTION WIDTH SD 46.2 fL (36.4-46.3); WHITE BLOOD COUNT 4.98 K/uL (4.8-10.8)
--- NOTE | 2017-03-07 06:00 | NUR ---
A: patient in room, resting in bed at this time. No change in assessment. MIVF infusing
[2017-03-07 06:23] LABS: CREATININE 0.58 mg/dl (0.60-1.20); POTASSIUM 3.2 mmol/L (3.5-5.1)
[2017-03-07 07:56] VITALS: BP 134/83; PULSE 67; TEMP 37.2; O2SAT 94
--- NOTE | 2017-03-07 08:00 | NUR ---
Patient awake and alert. VSS. SB-SR on monitor with 1st degree AV block and IVCD. Denies any CP/pressure/palpitations. Pulses palpable. No edema. Lung sounds clear. Sats WNL on RA. Denies SOB. Tolerating diet. Took Miralax last evening, but still hasn't had a BM. She declines off for additional dose of Miralax this morning stating that she'll just take her usual Senna when she gets home. Voiding CYU. Skin intact. #20 right wrist WNL and infusing NS @ 50 ml/hr. K+ 3.2 this morning. Explained plan for day, which will include K+ replacement. Patient hopeful for discharge. Due to have repeat EKG this morning. Denies needs at this time. Will continue to monitor.
[2017-03-07] MEDS ORDERED: POTASSIUM CHLORIDE 10 MEQ TABCR PO STA (08:33)
[2017-03-07] MEDS: METOPROLOL SUCC 50MG EXT REL TAB PO SCH (08:41)
[2017-03-07] MEDS: HYDROCHLOROTHIAZIDE 25 MG TAB PO SCH (08:41)
[2017-03-07] MEDS: CEROVITE ADV FORMULA TAB PO SCH (08:41)
[2017-03-07] MEDS: ASPIRIN 81 MG ECTAB PO SCH (08:41)
[2017-03-07] MEDS: IBUPROFEN 200 MG TAB PO SCH (08:42)
[2017-03-07] MEDS: CALCIUM 600MG + VIT D 400 IU TAB PO SCH (08:42)
[2017-03-07] MEDS ORDERED: POTA10TA PO (09:11)
--- NOTE | 2017-03-07 09:13 | Discharge Instructions ---
Discharge Instructions Date of Service Mar 07, 2017. Admission Reason for Admission: Elevated Troponin,Hypokalemia Discharge Discharge Diagnosis / Problem: Elevated troponins, Influenza, Hypokalemia Discharge Goals Goal(s): Diagnostic testing Activity Recommendations Activity Limitations: resume your previous activity . Instructions / Follow-Up Instructions / Follow-Up Please see Dr. Graham on March 12 at 12:45 PM for hospital follow up Current Hospital Diet Patient's current hospital diet: Low Sodium Diet (2gm Na) Discharge Diet Recommended Diet: Low Sodium Diet (2gm Na) Pending Studies Studies pending at discharge: no Laboratory Results Lipid Panel Test 03/06/17 06:23 Range/Units Triglycerides Level 78 0-150 mg/dl Cholesterol Level 196 0-200 mg/dl HDL Cholesterol 52 mg/dl Cholesterol/HDL Ratio 3.8 LDL Cholesterol, Calculated 128 mg/dl Medical Emergencies . Who to Call and When: Medical Emergencies: If at any time you feel your situation is an emergency, please call 911 immediately. . Non-Emergent Contact Non-Emergency issues call your: Primary Care Provider . . "Provider Documentation" section prepared by Christy Diehl. . VTE Core Measure Inpt VTE Proph given/why not?: Enoxaparin (Lovenox)SQ
[2017-03-07 09:22] VITALS: BP 134/83; PULSE 67; TEMP 37.2; O2SAT 94
[2017-03-07] MEDS ORDERED: BENZ100C18 PO (09:51)
--- NOTE | 2017-03-07 10:01 | NUR ---
Patient discharged home. Her daughter is here to take her. radiation monitor and saline lock removed. All discharge instructions reviewed and all questions answered. Patient declines wheelchair escort to [facility] and ambulates off unit with her daughter. Purse was returned to patient from security.
--- NOTE | 2017-03-07 10:19 | Discharge Summary ---
Discharge Summary Date of Service Mar 07, 2017. Discharge Summary Admission Date: Mar 05, 2017 at 14:28 Discharge Date: Mar 07, 2017 Discharge Disposition: Home Principal Diagnosis: Troponin elevation, Influenza Procedures: TTE Report: * -- Conclusions -- * There is mild concentric left ventricular hypertrophy. * Ejection Fraction = 50-55%. * The right ventricular systolic function is normal. * The left atrium is mildly dilated. * Right atrial size is normal. * Small pericardial effusion. * No significant valvular pathology Pending Studies/Follow-Up: Outpatient stress test is needed, recheck potassium/BMP in 1 week Medication Reconciliation New Medications: Benzonatate (Tessalon Perles) 100 Mg Cap 1 CAP PO TID PRN for Cough, #30 CAP Potassium Chloride (K-Tabs) 10 Meq Tab 20 MEQ PO DAILY for 5 Days, #10 TABS Continued Medications: Aspirin (Aspirin Ec) 81 Mg Tab 81 MG PO DAILY Calcium Carbonate-Cholecalcife (Calcium 600 + D 600-200 mg-Unit) 1 Tab Tab 1 TAB PO DAILY Hydrochlorothiazide (Hctz) 25 Mg Tab 12.5 MG PO DAILY Ibuprofen (Advil) 200 Mg Tab 400 MG PO BID Metoprolol Succ (Toprol Xl) (Toprol-Xl) 50 Mg Tabcr 50 MG PO DAILY Multiple Vitamins W/ Minerals (Ocuvite Extra) 1 Tab Tab 1 TAB PO DAILY Admission Information HPI (per Admitting provider): This is a 76yo F with a PMH of HTN, HLD and osteoporosis who presents with worsening lightheadedness and generalized weakness. Developed flu-like symptoms 4 days ago, with subjective fever, chills, nausea, vomiting and productive cough. States that she had rib pain from coughing a few days ago but respiratory symptoms are improving. Has not been able to tolerate PO intake for 3 days and was starting to feel lightheaded with any movement, so daughter brought her into ED for IV fluids. Patient was found to have influenza A on PCR. Is hypokalemic to 2.9 and has an elevated troponin of 0.234. Endorses lightheadedness and nausea currently but denies fever, chills, headache, visual changes, chest pain, SOB, abd pain, vomiting, urinary symptoms or LE swelling. Denies any history of ND or CHF. Was unable to take her BP meds for 3 days but took them this morning. Physical Exam (per Admitting): General Appearance: WD/WN, no apparent distress (wearing mask ) Head: normocephalic, atraumatic Eyes: normal inspection, PERRL, sclerae normal ENT: normal ENT inspection, hearing grossly normal, pharynx normal (dry mucous membranes ) Neck: supple, thyroid normal, trachea midline Respiratory/Chest: chest non-tender, no respiratory distress, no accessory muscle use, + rhonchi (Scattered rhonchi, otherwise clear ) Cardiovascular: regular rate, rhythm, no murmur, normal peripheral pulses Abdomen/GI: non tender, soft, no organomegaly Back: normal inspection Extremities/Musculoskelatal: normal inspection, no calf tenderness, no pedal edema Neurologic/Psych: no motor/sensory deficits, alert, normal mood/affect, oriented x 3 Skin: normal color, warm/dry Hospital Course TROPONIN ELEVATION: -no symptoms of CP -serial CM have plateaued -EKG with new appearance of LBBB (new since 2012); -Cardiology consulted, appreciate recs -repeat EKG in AM -TTE: EF 50-55% without wall motion abnormalities, small pericardial effusion -most likely demand ischemia in setting of flu, poor PO intake x 3 days -risk factors include HTN and hyperlipidemia, no prior ND -no events noted on tele -needs close Cardiology follow up (1-2 weeks), needs an outpatient stress test HYPOKALEMIA: -likely related to GI losses from flu; 2.9-->3.3 -replete and recheck -switch to po supplementation INFLUENZA A: -continue droplet precautions for flu -out of window for tamiflu, supportive care only HTN: -normotensive -continue home meds metoprolol, HCTZ HYPERLIPIDEMIA: -has not been taking statin at home -lipid panel: LDL 128, Total 196, HDL 52 -encouraged to resume given above labs OSTEOPOROSIS: -Continue home calcium + vit D PHYSICAL EXAM ON DAY OF DISCHARGE: GENERAL: Patient is in no acute distress. HEENT: No acute trauma, normocephalic, mucous membranes moist, no nasal congestion, no scleral icterus. NECK: No stridor, trachea is midline. LUNGS: Clear to auscultation bilaterally, no wheeze, no rhonchi, breath sounds equal. HEART: Without murmurs gallops or rubs, regular rate and rhythm. ABDOMEN: Soft, nontender, bowel sounds positive EXTREMITIES: No cyanosis or edema, moving all 4 extremities without difficulty NEUROLOGIC: Oriented x 3, no acute motor or sensory deficits, no focal weakness. SKIN: No rash, no jaundice, no diaphoresis. Total time spent on discharge = 35 This includes examination of the patient, discharge planning, medication reconciliation, and communication with other providers. Discharge Instructions see patient instructions
== END 2017-03-07 10:02 | disposition home or self-care (01) ==
LOC: C.EDB 10:29 → C.2E 14:28 → EDBEDREQ 14:49 → ENRESERV 14:53
PROVIDERS: ADMIT Internal Medicine; ATTEND Internal Medicine
DX: J10.1 Influenza due to other identified influenza virus with other respiratory manifestations (principal); I10 Essential (primary) hypertension; E78.5 Hyperlipidemia, unspecified; M81.0 Age-related osteoporosis without current pathological fracture; R79.89 Other specified abnormal findings of blood chemistry; Z79.82 Long term (current) use of aspirin; Z79.899 Other long term (current) drug therapy

== ENCOUNTER 2023-02-09 08:42 | Inpatient (IN) ==
--- OUTSIDE RECORDS SUMMARY | 2023-02-09 08:48 | External Medical Summary | Summary of Care ---
Author Name Unknown Organization [facility] Address [address] [place] [address] Phone [phone] Care Team Providers Care Fire Protection Equipment Technician Name Role Phone Hamilton Graham MD Primary Care Provider + Encounter Details Date Type Department Care Team (Late st Contact Info) Description 12/19/2022 Result Scan Unspecified Department <No scans attached> Allergies No known active allergiesdocumented as of this encounter (statuses as of 01/22/2023) Medications Medication Sig Dispensed Refills Start Date End Date Status ASPIRIN 81 MG PO TABS one tab by mouth daily 34 5 11/01/2005 Active OCUVITE EXTRA PO TABS Take 1 Tab by mouth 2 times a day. 0 Active cholecalciferol, VIT D3, (VITAMIN D3) 1000 UNITS Tablet Take 1 Tablet by mouth in the morning. 0 08/17/2019 Active hydroCHLOROthiazide 25 MG Oral Tablet (Hydrodiuril)Indicat ions:Thoracic aortic aneurysm without rupture (HCC),HTN, goal below 140/90,Essential hypertension with goal blood pressure less than 130/80 take 1 tablet by mouth once daily 90 Tablet 3 06/26/2022 Active Losartan Potassium 50 MG Oral Tablet (Cozaar)Indications: HTN, goal below 140/90 take 1 tablet by mouth daily 90 Tablet 2 2022 Active Metoprolol Succinate ER 50 MG Oral Tablet Extended Release 24 Hour (toPROL XL)Indications:HTN, goal below 140/90 take 1 tablet by mouth once daily 90 Tablet 3 08/25/2022 Active Additional Information Patient taking differently: BID (.AM/PM), Reported on 12/25/2022 Atorvastatin Calcium 20 MG Oral Tablet (Lipitor) Take 1 Tablet by mouth in the morning. In the morning.. 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 HTN, GOAL BELOW 140/90 01/14/2009 Overview: Modified per HTN Taxonomy. Senile osteoporosis 11/28/2007 Overview: Completed 5 years of fosamax in 2005 History of colonic polyps 12/10/2006 Overview: 07/10/12: adenoma, repeat in 5 years 05/22/07: melanosis of the colon, repeat 5 years 10/19/03: normal. repeat in 3 years documented as of this encounter (statuses as of 01/22/2023) Resolved Problems Problem Noted Date Diagnosed Date Resolved Date No advance directive on file 11/01/2005 03/12/2017 Overview: =no BENIGN HYPERTENSION 07/09/2001 01/15/20 09 Overview: Modified per HTN Taxonomy. Osteoporosis 01/16/2008 PURE HYPERCHOLESTEROLEM 12/0 10/2008 Overview: Per Lipid Taxonomy. Family history of other card iovascular diseases 03/12/2017 documented as of this encounter (statuses as of 01/22/2023) Immunizations Name Administration Dates Next Due COVID-19 mRNA, LNP-s, No Pre serve, 2-Dose Series (Moderna) 05/07/2020,04/02/2020 COVID-19, mRNA, LNP-s, PF, B ooster, 100mcg/0.5mg (Moderna) 01/19/2021 Covid-19, Mrna, Lnp-s, Pf, B ivalent, 50 Mcg, IM, 12 yrs and above (Moderna) 12/15/2021 Pneumococcal Conjugate Vacc, 13 Valent (Prevnar) 07/05/2014 Pneumococcal Polysaccharide PPV23 (Pneumovax) 10/13/2004 Season Influenza, Quad, PF, Adjuvanted, 65+ Yrs, IM (FLUAD) 12/14/2022,12/27/2020,11/12/2019 Seasonal Influenza, Quadrivalent, ID 12/22/2014 Seasonal Influenza, Quadriva lent, No Preserve, IM 12/13/2016 Seasonal Influenza, Split, I IV3, With Preserve, Inj 12/20/2013,12/23/2012,12/05/2010,03/2009,12/02/2008,01/06/2008,12/11/19 07,01/09/2006 Seasonal Influenza, Trivalen t, Adjuvanted, 65+ yrs 11/09/2018 Seasonal Influenza, Trivalen t, High Dose, No Preserve, IM 11/21/2017 TD, Preservative Free 02/06/2010 02/07/2020 TDAP (age 10 and older)(Boostrix) 07/05/2014 Varicella Zoster Vaccine (Adult) 12/23/2010 Zoster Vaccine Recombinant (Shingrix) 05/18/2018 ,11/21/2017 documented as of this encounter Social History Tobacco Use Types Packs/Day Years Used Date Smoking Tobacco: Never Passive Smoke Exposure: Yes Smokeless Tobacco: Never Comments:passive smoking exp osure from cigars Alcohol Use Standard Drinks/Week Comments Not Currently 0 (1 standard drink = 0.6 oz pur e alcohol) occ. PHQ-2 Answer Date Recorded PHQ Adult Total Score 0 08/15/2022 Hunger Vital Sign Answer Date Recorded Worried About Running Out of Food in the Last Ye ar Never true 01/14/2020 Ran Out of Food in the Last Year Never true 01/14/2020 Sex and Gender Information Value Date Recorded Sex Assigned at Female 07/11/2018 9:49 AM EDT Gender Identity Female 07/11/2018 9:49 AM EDT Sexual Orientation Straight 07/11/2018 9: 49 AM EDT Job Start Date Occupation Industry Not on file Not on file Not on file documented as of this encounter Plan of Treatment Upcoming Encounters Date Type Department Care Team (Late st Contact Info) Description 02/15/2023 9:15 AM EST Cardiac Studies Cardiology, [facility] [address] [facility] [place] [address] [place], Pacer [facility] [address] [facility] [place] [address] 03/21/2023 10:00 AM EST Office Visit General Internal Medicine [facility] [address] [facility] [place] [address] Hamilton Graham MD [address] [facility] [place] [address] Scheduled Procedures Name Priority Associated Diagnoses Date/Ti me COLONOSCOPY FLEXIBLE PROXIMAL DIAGNOSTIC Recall History of colon polyps Health Maintenance Due Date Last Done Comments DXA Scan 01/24/2017 01/24/2015, 01/09, 01/05/2011, Additional history exists COLONOSCOPY-EVERY 3 YRS AGES 18-100 10/26/2022 10/27/2019, 07/10/2012, 07/10/2012, Additional history exists COVID-19 Vaccine (2022- season) 2022 12/15/2021, 01/19/2021, 05/07/2020, Additional history exists Depression Screening 08/16/2023 08/15/2022 GFR 12/26/2023 12/25/2022, 12/09, 09/18/2022, Additional history exists DTaP,Tdap,and Td Vaccines (2 - Td or Tdap) 07/05/2024 07/05/2014, 02/06/2010 Albumin/Creatinine Ratio 02/12/2025 02/12/2022 Pneumococcal Vaccine: 65+ Years Completed 07/05/2014, 10/13/2004 *BISPHONATE OR OTHER ACCEPTABLE MEDICATION NEEDED FOR OSTEOPOROSIS (REFER TO SMARTSET #1146) Addressed 07/25/2016 (Declined) Overridden w ith the intention of not completing the topic Zoster Vaccines Completed 05/18/2018, 11/09, 12/23/2010 VITAMIN D LEVEL ONCE IN A LIFETIME-USE SMARTSET# 70010 Completed 08/15/2022, 02/12/2022, 08/02/2021, Additional history exists Influenza Vaccine (FLU shot) Completed 12/14/2022, 12/27/2020, 11/12/2019, Additional history exists GARDASIL-HPV IMMUNIZATION SERIES Aged Out No longer eligible based on patient's age to complete this topic Hepatitis B Aged Out No longer eligi ble based on patient's age to complete this topic MENINGOCOCCAL (MENACTRA/MENVEO) Aged Out No longer eligible based on patient's age to complete this topic documented as of this encounter Medical Devices Not on filedocumented as of this encounter Procedures Procedure Name Priority Date/Time Associated Diagnosis Comments CARDIOLOGY SCANNED RESULT 12/19/2022 documented in this encounter Results * CARDIOLOGY SCANNED RESULT (12/19/2022) 12/19/2022 No Physician Data Unknown OTHER documented in this encounter Advance Directives Healthcare Agents on File Name Relationship Healthcare Agent Relationshi p Communication [facility] Health Care Repr esentative (appointed verbally by patient or by statute hierarchy) [facility] Adult Child Health Engine Inspector resentative (appointed verbally by patient or by statute hierarchy) Care Teams Fire Protection Equipment Technician Relationship Specialty Start Date End Date Hamilton Graham MD [address] [place] [address] PCP - General Internal Medicine 07/18/15 documented as of this encounter
--- OUTSIDE RECORDS SUMMARY | 2023-02-09 08:48 | External Medical Summary | Summary of Care ---
Author Name Unknown Organization [facility] Address [address] [place] [address] Phone [phone] Care Team Providers Care Landscaping Crew Leader Name Role Phone Hamilton Graham MD Primary Care Provider + Encounter Details Date Type Department Care Team (Late st Contact Info) Description 12/24/2022 Population Health External Data Unspecified Department Allergies No known active allergiesdocumented as of this encounter (statuses as of 01/21/2023) Medications Medication Sig Dispensed Refills Start Date [...] as of this encounter (statuses as of 01/21/2023) Active Problems Problem Noted Date Diagnosed Date [...] as of this encounter (statuses as of 01/21/2023) Resolved Problems Problem Noted Date Diagnosed Date Resolved Date No advance directive on file 11/01/2005 03/12/2017 Overview: =no BENIGN HYPERTENSION 07/09/2001 01/15/20 09 Overview: Modified per HTN Taxonomy. Osteoporosis 01/16/2008 PURE HYPERCHOLESTEROLEM 12/0 10/2008 Overview: Per Lipid Taxonomy. Family history of other card iovascular diseases 03/12/2017 documented as of this encounter (statuses as of 01/21/2023) Immunizations Name Administration Dates Next Due COVID-19 [...] Influenza, Split, I IV3, With Preserve, Inj 12/20/2013,12/23/2012,12/05/2010,100 03/2009,12/02/2008,01/06/2008,12/11/19 07,01/09/2006 Seasonal Influenza, Trivalen t, Adjuvanted, 65+ [...] Care Team (Late st Contact Info) Description 01/21/2023 4:00 PM EST Office Visit Cardiology, [facility] [address] [facility] [place] [address] Jaylen Ponce DO [address] [facility] [place] [address] 02/15/2023 9:15 AM EST Cardiac Studies Cardiology, [facility] [address] [facility] [place] [address] [place] Pac[facility] [address] [facility] [place] [address] 03/21/2023 10:00 AM EST Office Visit General Internal Medicine [facility] [address] [place] [address] Hamilton Graham MD [address] [place] [address] Scheduled Procedures Name Priority Associated Diagnoses Date/Ti [...] D LEVEL ONCE IN A LIFETIME-USE SMARTSET# [id number] Completed 08/15/2022, 02/12/2022, 08/02/2021, Additional history exists [...] Not on filedocumented as of this encounter Advance Directives Healthcare Agents on File Name Relationship Healthcare Agent Relationshi p Communication [facility] Health Care Repr esentative (appointed verbally by patient or by statute hierarchy) [facility] Adult Child Health Human Resource Analyst resentative (appointed verbally by patient or by statute hierarchy) Care Teams Landscaping Crew Leader Relationship Specialty Start Date End Date Hamilton Graham MD [address] [place] [address] PCP - General Internal Medicine 07/18/15 documented as of this encounter
--- OUTSIDE RECORDS SUMMARY | 2023-02-09 08:48 | External Medical Summary | Summary of Care ---
Author Name Unknown Organization [facility] Address [address] [place] [address] Phone [phone] Care Team Providers Care Manager Trading Name Role Phone Hamilton Graham MD Primary Care Provider + Reason for Visit * Reason Comments Follow Up * Evaluate & Treat - Unlimited Visits (Within 10 days (routine)) - Authorized Specialty Diagnoses / Procedures Referred By Contact Referred To Contact Cardiovascular Medicine / Cardiology Diagnoses Hospital discharge follow-up 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 LBBB (left bundle branch block) Kaylee Diaz MD [address] [place] [address] Referral ID Status Reason Start Date Expiration Date Visits Requested Visits Authorized [id number] Authorized Specialty Services Required [id number] [phone] Encounter Details Date Type Department Care Team (Late st Contact Info) Description 01/21/2023 4:00 PM EST Office Visit Cardiology, [facility] [address] [place] [address] Jaylen Ponce DO [address] [place] [address] Paroxysmal atrial fibrillation (HCC)*; Tachy-maksim syndrome (HCC); Cardiac pacemaker in situ; Aneurysm of ascending aorta without rupture (HCC); Dyslipidemia, goal LDL below 100; HTN, goal below 140/90; LBBB (left bundle branch block) Allergies No known active allergiesdocumented as of [...] mouth in the morning. 0 08/17/2019 Active hydroCHLOROthiazid e 25 MG Oral Tablet (Hydrodiuril)Indic ations:Thoracic aortic aneurysm without rupture (HCC),HTN, goal below 140/90,Essential hypertension with goal blood pressure less than 130/80 take 1 tablet by mouth once daily 90 Tablet 3 06/26/2022 Active Losartan Potassium 50 MG Oral Tablet (Cozaar)Indication s:HTN, goal below 140/90 take 1 tablet by mouth daily 90 Tablet 2 2022 Active Metoprolol Succinate ER 50 MG Oral Tablet Extended Release 24 Hour (toPROL XL)Indications:HTN , goal below 140/90 take 1 tablet by mouth once daily 90 Tablet 3 08/25/2022 Active Additional Information Patient taking differently: BID (.AM/PM), Reported on 12/25/2022 Atorvastatin Calcium 20 MG Oral Tablet (Lipitor) Take 1 Tablet by mouth in the morning. In the morning.. 90 Tablet 3 12/17/2022 Active Apixaban 5 MG Oral Tablet (Eliquis) Take 1 Tablet by mouth in the morning and 1 Tablet before bedtime. 180 Tablet 3 01/14/2023 Active Potassium Chloride ER 20 MEQ Oral Tablet Extended Release Take 1 Tablet by mouth in the morning. 90 Tablet 3 01/14/2023 Active Amiodarone HCl 200 MG Oral Tablet (Cordarone) Take 1 Tablet by mouth in the morning. 34 Tablet 11 01/21/2023 Active Amiodarone HCl 200 MG Oral Tablet (Cordarone) Take 1 Tablet by mouth in the morning and 1 Tablet before bedtime. 180 Tablet 3 01/14/2023 3 Discontinue d(Medicatio n/Dose Changed) documented as of this encounter (statuses as [...] Influenza, Split, I IV3, With Preserve, Inj 12/20/2013,12/23/2012,12/05/2010,10/03/2009,12/02/2008,01/06/2008,12/11/19 07,01/09/2006 Seasonal Influenza, Trivalen t, Adjuvanted, 65+ [...] Passive Smoke Exposure: Yes Smokeless Tobacco: Never Tobacco Cessation:Counseling Given: Not Answered Comments:passive smoking exposure from cigars Alcohol Use Standard Drinks/Week Comments [...] on file documented as of this encounter Last Filed Vital Signs Vital Sign Reading Time Taken Comments Blood Pressure 140/82 01/21/2023 3:58 PM EST Pulse 80 01/21/2023 3:58 PM EST Temperature - - Respiratory Rate 18 01/21/2023 3:58 PM EST Oxygen Saturation - - Inhaled Oxygen Concentration - - Weight 87.7 kg (193 lb 4.8 oz) 01/21/2023 3:58 P M EST Height - - Body Mass Index 32.42 12/25/2022 10:36 AM EDT documented in this encounter Progress Notes * Jaylen Ponce DO - 01/21/2023 4:18 PM EST History of Present Illness: 82 year old female presents for follow-up of Recent hospitalization dueto paroxysmal atrial fibrillation with tachy-maksim syndrome. Pacemaker implanted without complication. History of ascending aortic aneurysm, hypertension, and dyslipidemia. Hospitalized in early December due to paroxysmal atrial fibrillation with tachy- maksim syndrome. Significant pauses noted on telemetry. Dual-chamber pacemaker implanted without complication December. Discharged home December 22, 2022 on amiodarone 200 mg twice daily, metoprolol succinate 50 mgtwice daily and oral anticoagulation with Eliquis 5 mg twice daily. Feeling well since hospital discharge. Chronic fatigue unchanged. Denies lightheadedness, dizziness, syncope, or near syncope. Daughter present for today's office visit. Has questions regarding need for medications as well as possible recurrence of atrial fibrillation. Pacemaker interrogation performed December 28, 2022 demonstrating atrial fibrillation with a 21% burden. Longest episode lasting 8.5 minutes. Atrial pacing 91%. Ventricular pacing 0.4%. ECG: Atrial paced rhythm, LAD Lexiscan nuclear stress test report 04/2017: Myocardial perfusion imaging is normal. Overall left ventricular systolic function was normal without regional wall motion abnormalities. The left ventricular ejection fraction was 64%. There are no prior studies available for comparison. 2D echocardiogram report [facility] 12/20/2022: LVEF 55-60% Moderate concentric left ventricular hypertrophy. No pericardial effusion. Aortic valve sclerosis without stenosis. Trace aortic regurgitation. Moderate to severe tricuspid regurgitation. Mild mitral regurgitation. Limited 2D echocardiogram report 04/2017: Pericardial effusion resolved. Ascending thoracic aorta aneurysm is present measuring up to 5.1 cm. CTA chest report summary July 20, 2021: Stable ascending aortic aneurysm (5.0 x 4.8cm) not significantly increased in size from previous. Thyroid nodules , including a large dominant left thyroid nodule. This can be better evaluated with ultrasound if clinically indicated. CT chest report summary July 21, 2020: 1. No acute cardiopulmonary process is identified. 2. Stable ascending thoracic aortic aneurysm measuring up to 5.4 cm in transverse dimension with mild aortic plaque. 3. Cardiomegaly with a trace nonspecific pericardial effusion and scattered coronary artery calcifications. 4. Subtle biapical and bibasilar pleural thickening or scarring with additional pleuroparenchymal scarring in the left lingular region. 5. Enlarged heterogeneous left thyroid lobe suggesting a goiter. Recommend outpatient follow-up. 6. Osteopenia, scoliosis, and degenerative changes in the spine. CT chest report July 10, 2019: 1. Stable dilated ascending aorta measuring up to 5.1 x 5.4 cm since prior chest CT dated 07/14/2018. 2. Stable large heterogeneous left thyroid nodule extending to the superior mediastinum. Stable adjacent mildly enlarged left superior mediastinal lymph node measuring 1.3 x 1.6 cm. Consider continued attention on the follow up studies. CT chest report 06/2017: Proximal ascending aortic aneurysm measuring 5.2 x 4.8 centimeters in maximal dimension with other measurements as detailed below. Cardiac Studies: 2D transthoracic ECHO performed at [facility] 2016 demonstrates preserved LVsystolic function, mild concentric left ventricular per chief E, ejection fraction 50 to 55%, smallpericardial effusion, no significant valvular pathology. 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) H35.3232 Past Surgical History: Procedure Laterality Date OTHER repair of trigger finger on right hand CATARACT SURGERY,COMPLEX Left 05/2021 DELIVERY Delivery Only DELIVERY 1974, 1975 COLONOSCOPY, DIAGNOSTIC (RECTUM) 05/22/2007 melanosis, hemorrhoids, repeat 2012, Dr Horton COLONOSCOPY, DIAGNOSTIC (RECTUM) 07/10/2012 COLONOSCOPY FLEXIBLE PROXIMAL DIAGNOSTIC performed by Ivory Myrick DO at [facility],ADENOMATOUS POLYPS REPEAT COLONOSCOPY IN 5 YEARS COLONOSCOPY, DIAGNOSTIC (RECTUM) 10/27/2019 adenomatous polyp, melanosis, repeat 3 yrs / [facility] COLONOSCOPY, REMOVE LESION 10/10/2003 repeat 3 years COLORECTAL CANCER SCREEN;W/FLE 11/22/1998 hemorrhoids COLORECTAL CANCER SCREEN;W/FLE 07/28/2003 EGD, FLEXIBLE, DIAGNOSTIC 10/27/2019 gastritis / [facility] KNEE ARTHROSCOPY, DIAGNOSTIC 03/11/2012 Dr Alex LIGATE/CUT OVIDUCT(S) Tubal Ligation MAMMOGRAM - BILATERAL 06/12/2002 birad code 2 MAMMOGRAM - BILATERAL 09/03/2003 birad code 1 MAMMOGRAM - BILATERAL 01/15/2005 birad code 2 Family History: Denies family history of premature coronary artery disease or sudden cardiac .Reports siblings who required pacemaker, however, she is unsure regarding details. Family History Problem Relation Age of Onset Musculo-skeletal Disorder Father OA Heart Disorder Mother CAD CHF age 73 Heart Disorder Sister Heart Disorder Sister Heart Disorder Brother Family Status Relation Status Mother at age 73 Father at age 90 Sister Alive Sister Alive Sister Alive Sister Alive Sister Alive Sister Alive Brother Alive Brother Alive Brother Alive Brother Alive Brother Alive Son Alive Son Alive Son Alive Daughter Alive Daughter Alive Father Mother Sister Sister Brother Social History: Lifelong nonsmoker, with significant secondhand smoke exposure Social History Socioeconomic History Marital status: Spouse name: Dionte Number of children: 5 Years of education: 16 Highest education level: Not on file Occupational History Occupation: retired Social Needs Financial resource strain: Not on file Food insecurity: Worry: Not on file Inability: Not on file Transportation needs: Medical: Not on file Non-medical: Not on file Tobacco Use Smoking status: Passive Smoke Exposure - Never Smoker Smokeless tobacco: Never Used Tobacco comment: passive smoking exposure from cigars Substance and Sexual Activity Alcohol use: Yes Comment: occ. Drug use: No Sexual activity: Yes Partners: Male Lifestyle Physical activity: Days per week: Not on file Minutes per session: Not on file Stress: Not on file Relationships Social connections: Talks on phone: Not on file Gets together: Not on file Attends synagogue service: Not on file Active member of club or organization: Not on file Attends meetings of clubs or organizations: Not on file Relationship status: Not on file Intimate partner violence: Fear of current or ex partner: Not on file Emotionally abused: Not on file Physically abused: Not on file Forced sexual activity: Not on file Other Topics Concern Service No Blood Transfusions No Caffeine Concern No Occupational Exposure No Hobby Hazards No Sleep Concern No Stress Concern No Weight Concern Yes Special Diet No Back Care No Exercise Yes Comment: walks daily Bike Helmet No Seat Belt Yes Self-Exams No Social History Narrative Not on file Social History Social History Narrative Not on file ROS: All others negative other than those noted in the HPI. Review of patient's allergies indicates: No Known Allergies Current Outpatient Medications Medication Sig Dispense Refill ASPIRIN 81 MG PO TABS one tab by mouth daily 34 5 OCUVITE EXTRA PO TABS Take 1 Tab by mouth 2 times a day. cholecalciferol, VIT D3, (VITAMIN D3) 1000 UNITS Tablet Take 1 Tablet by mouth in the morning. hydroCHLOROthiazide 25 MG Oral Tablet (Hydrodiuril) take 1 tablet by mouth once daily 90 Tablet 3 Losartan Potassium 50 MG Oral Tablet (Cozaar) take 1 tablet by mouth daily 90 Tablet 2 Metoprolol Succinate ER 50 MG Oral Tablet Extended Release 24 Hour (toPROL XL) take 1 tablet by mouth once daily (Patient taking differently: 2 times a day.) 90 Tablet 3 Atorvastatin Calcium 20 MG Oral Tablet (Lipitor) Take 1 Tablet by mouth in the morning. In the morning.. 90 Tablet 3 Amiodarone HCl 200 MG Oral Tablet (Cordarone) Take 1 Tablet by mouth in the morning and 1 Tablet before bedtime. 180 Tablet 3 Apixaban 5 MG Oral Tablet (Eliquis) Take 1 Tablet by mouth in the morning and 1 Tablet before bedtime. 180 Tablet 3 Potassium Chloride ER 20 MEQ Oral Tablet Extended Release Take 1 Tablet by mouth in the morning. 90Tablet 3 No current facility-administered medications for this visit. OBJECTIVE/PHYSICAL EXAMINATION: BP 140/82 | Pulse 80 | Resp 18 | Wt 87.7 kg (193 lb 4.8 oz) | BMI 32.42 kg/m | BSA 2 m General: NAD, AAO x3, well nourished. Obese. HEENT: Normocephalic. Atraumatic. Conjunctiva pink, noscleral icterus. No carotid bruits, the carotid upstrokes are brisk. No JVD. No HJR Heart: Regular normal S-1 and S-2 no S-3 or S-4 gallop. No murmurs or rubs appreciated. PMI is not displaced. No RVheave. Lungs: Clear bilateral without rales , rhonchi, or wheeze. Abdomen: Normal bowel sounds. Soft. Nontender. No masses or organomegaly. No abdominal bruits. Extremities: No clubbing, cyanosis, oredema. Pulses: radial=2/4, Dorsalis pedis =2/4, posterior tibial=2/4. Neuro: No focal deficits. IMPRESSION: 1. Paroxysmal atrial fibrillation with tachy-maksim syndrome status post recent dual-chamber pacemaker implantation December 21, 2022. 2. 5.0 - 5.4cm ascending aortic aneurysm -stable diameter per CT 07/2021 -Continued observation recommended 3. Hypertension - borderline controlled 4. Intermittent Left bundle branch block 5. Dyslipidemia - uncontrolled 6. Anxiety disorder RECOMMENDATIONS/PLAN: Reduce amiodarone to 200 mg once daily. Repeat hepatic function panel and TSH in 3 months. Natural history and pathophysiology of paroxysmal atrial fibrillation with tachy-maksim syndrome discussed. Continue current dose of metoprolol succinate and apixaban. Consider reducing metoprolol back to 50 mg once daily pending review of follow-up pacemaker interrogation. Natural history and pathophysiology of thoracic aneurysm discussed. Conservative management/observation recommended. Patient is not interested in invasive procedures/surgery. All questions answered to satisfaction both the patient and her daughter. Follow Up: Return in about 4 months (around 05/22/2023). I spent a total of 40-54 minutes (exact time 42 mins) on the date of service in preparation, delivery, and documentation of the care provided to Carolyn Wall excluding any time spent in the performance of separately billed services. Jaylen Ponce DO, [facility] Associate Cardiology - [facility] documented in this encounter Nursing Notes * Nancy Low LPN - 01/21/2023 3:57 PM EST Examination Room: 13 Name: Carolyn Wall Date of : (1940) Reason for Visit: Follow up Interim Hospitalization(s): Denies Problems/Concerns: Denies Chest Pain/SOB: Denies My [facility] is a way you can talk to your provider online through e-mail. Would you like to sign up? I can activate it for you? ALREADY ACTIVE Patient was instructed to not get up on the exam table until directed and assisted by their provider; patient is to remain seated in the chair/ wheelchair/ exam table for fall prevention and safety reasons. Patient is aware to have assistance to step down off exam table with personnel. Patient voiced full comprehension of instructions. documented in this encounter Plan of Treatment Upcoming Encounters Date Type Department Care Team (Late st Contact Info) Description 02/15/2023 9:15 AM EST Cardiac Studies Cardiology, [facility] [address] [place] [address] [facility] [address] [facility] [place] [address] 03/21/2023 10:00 AM EST Office Visit General Internal Medicine [facility] [address] [facility] [place] [address] Hamilton [facility] [address] [facility] [address] Scheduled Orders Name Type Priority Associated Diagnoses Orde r Schedule EKG EKG Routine Paroxysmal atrial fibrillation (HCC) Expected: 01/21/2023 (Approximate), Expires: 02/21/2024 TSH WITH FREE T4 IF INDICATED Lab Routine Paroxysmal atrial fibrillation (HCC) Tachy-maksim syndrome (HCC) Expected: 04/23/2023 (Approximate), Expires: 01/22/2024 HEPATIC FUNCTION PANEL Lab Routine Paroxysmal atrial fibrillation (HCC) Tachy-maksim syndrome (HCC) Expected: 04/23/2023 (Approximate), Expires: 01/22/2024 Scheduled Procedures Name Priority Associated Diagnoses Date/Ti me COLONOSCOPY FLEXIBLE PROXIMAL DIAGNOSTIC Recall History of colon polyps Health Maintenance Due Date Last Done Comments DXA Scan 01/24/2017 01/24/2015, 01/09, 01/05/2011, Additional history exists COLONOSCOPY-EVERY 3 YRS AGES 18-100 10/26/2022 10/27/2019, 07/10/2012, 07/10/2012, Additional history exists COVID-19 Vaccine (5 - 2022-24 season) 2022 12/15/2021, 01/19/2021, 05/07/2020, Additional history [...] D LEVEL ONCE IN A LIFETIME-USE SMARTSET# [id number] Completed 08/15/2022, 02/12/2022, 08/02/2021, Additional history exists [...] Not on filedocumented as of this encounter Visit Diagnoses Diagnosis Paroxysmal atrial fibrillation (HCC)- Primary Atrial fibrillation Tachy-maksim syndrome (HCC) Sinoatrial node dysfunction Cardiac pacemaker in situ Aneurysm of ascending aorta without rupture (HCC) Dyslipidemia, goal LDL below 100 Other and unspecified hyperlipidemia HTN, goal below 140/90 Unspecified essential hypertension LBBB (left bundle branch block) Other left bundle branch block documented in this encounter Advance Directives Healthcare Agents on File Name Relationship Healthcare Agent Relationshi p Communication Dionte Wall Spouse Health Care Repr esentative (appointed verbally by patient or by statute hierarchy) [facility] Rep resentative (appointed verbally by patient or by statute hierarchy) Care Teams Manager Trading Relationship Specialty Start Date End Date Hamilton Graham MD [address] [place] [address], [place] [address] PCP - General Internal Medicine 07/18/15 documented as of this encounter"
--- OUTSIDE RECORDS SUMMARY | 2023-02-09 08:48 | External Medical Summary | Summary of Care ---
Author Name Unknown Organization [facility] Address [address] [place] [facility] [address] Phone [phone] Care Team Providers Care Oil Paint Shader Name Role Phone Hamilton Graham MD Primary Care Provider + Reason for Visit * Reason Onset Date Comments Letter Requests 01/23/2023 Encounter Details Date Type Department Care Team (Late st Contact Info) Description 01/23/2023 Telephone Cardiology, [facility] [address] [facility] [place] [address] Jaylen Ponce DO [address] [facility] [place] [place] [address] Letter Requests Allergies No known active allergiesdocumented as of this encounter (statuses as of 01/23/2023) Medications Medication Sig Dispensed Refills Start Date End Date Status ASPIRIN 81 MG PO TABS one tab by mouth daily 34 5 11/01/2005 Active OCUVITE EXTRA PO TABS Take 1 Tab by mouth 2 times a day. 0 Active cholecalciferol, VIT D3, (VITAMIN D3) 1000 UNITS Tablet Take 1 Tablet by mouth in the morning. 0 08/17/2019 Active hydroCHLOROthiazide 25 MG Oral Tablet (Hydrodiuril)Indica tions:Thoracic aortic aneurysm without rupture (HCC),HTN, goal below 140/90,Essential hypertension with goal blood pressure less than 130/80 take 1 tablet by mouth once daily 90 Tablet 3 06/26/2022 Active Losartan Potassium 50 MG Oral Tablet (Cozaar)Indications :HTN, goal below 140/90 take 1 tablet by [...] the morning. 34 Tablet 11 01/21/2023 Active documented as of this encounter (statuses as of 01/23/2023) Active Problems Problem Noted Date Diagnosed Date [...] as of this encounter (statuses as of 01/23/2023) Resolved Problems Problem Noted Date Diagnosed Date Resolved Date No advance directive on file 11/01/2005 03/12/2017 Overview: =no BENIGN HYPERTENSION 07/09/2001 01/15/20 09 Overview: Modified per HTN Taxonomy. Osteoporosis 01/16/2008 PURE HYPERCHOLESTEROLEM /10/2008 Overview: Per Lipid Taxonomy. Family history of other card iovascular diseases 03/12/2017 documented as of this encounter (statuses as of 01/23/2023) Immunizations Name Administration Dates Next Due COVID-19 [...] 08/15/2022 Hunger Vital Sign Answer Date Recorded Within the past 12 months, y ou worried that your food would run out before you got the money to buy more. Never true 12/25/19 23 Within the past 12 months, t he food you bought just didn't last and you didn't have money to get more. Never true 12/24/2022 Sex and Gender Information Value Date Recorded Sex Assigned at Female 07/11/2018 9:49 AM EDT Gender Identity Female 07/11/2018 9:49 AM EDT Sexual Orientation Straight 07/11/2018 9: 49 AM EDT Job Start Date Occupation Industry Not on file Not on file Not on file documented as of this encounter Miscellaneous Notes * Telephone Encounter - Mally Lambert OSA - 01/23/2023 11:37 AM EST Printed/mailed. * Telephone Encounter - Aaliyah Riley OSA - 01/23/2023 10:07 AM EST Good morning, When patient left her appointment on Saturday, all the office staff had left and she would like her after visit summary mailed to her. Thanks documented in this encounter Plan of Treatment Upcoming Encounters Date Type Department Care Team (Late st Contact Info) Description 02/15/2023 9:15 AM EST Cardiac Studies Cardiology, [facility] [address] [facility] [place] [address] [facility] [address] [facility] [place] [address] 03/21/2023 10:00 AM EST Office Visit General Internal Medicine [facility] [address] [place] [address] Hamilton Graham MD [address] [facility] [place] [address] 04/23/2023 10:30 AM EST Office Visit Cardiology, [facility] [address] [facility] [place] [address] Jaylen Ponce, [address] [place] [address] 05/24/2023 3:30 PM EDT Office Visit Cardiology, [facility] [address] [facility] [place] [address] Georgie Prescott PA-C [address] [facility] [place] [id number] Scheduled Procedures Name Priority Associated Diagnoses Date/Ti [...] D LEVEL ONCE IN A LIFETIME-USE SMARTSET# [id number] Completed 08/15/2022, 02/12/2022, 08/02/2021, Additional history exists Influenza Vaccine (FLU shot) Completed 12/14/2022, 12/17/2021, 12/27/2020, Additional history exists GARDASIL-HPV IMMUNIZATION SERIES Aged [...] Relationship Healthcare Agent Relationshi p Communication Dionte [facility] Health Care Repr esentative (appointed verbally by patient or by statute hierarchy) [facility] Adult Child Health Dental Receptionist resentative (appointed verbally by patient or by statute hierarchy) Care Teams Oil Paint Shader Relationship Specialty Start Date End Date Hamilton Graham MD [address] [place] [address] PCP - General Internal Medicine 07/18/15 documented as of this encounter
--- OUTSIDE RECORDS SUMMARY | 2023-02-09 08:48 | External Medical Summary | Summary of Care ---
Author Name Unknown Organization [facility] Address [address] [place] [address] Phone [phone] Care Team Providers Care Taxicab Dispatcher Name Role Phone Hamilton Graham MD Primary Care Provider + Reason for Visit * Reason Onset Date Comments case management 01/23/2023 Encounter Details Date Type Department Care Team (Late st Contact Info) Description 01/23/2023 Operations Project Manager Telephone Care Coordination and Integration [address], [place] [phone] Harper Childers LPN [address], [place] [phone] case management Allergies No known active allergiesdocumented as of [...] per HTN Taxonomy. Osteoporosis 01/16/2008 PURE HYPERCHOLESTEROLEM /0 10/2008 Overview: Per Lipid Taxonomy. Family history [...] encounter Miscellaneous Notes * Telephone Encounter - Harper Childers LPN - 01/23/2023 9:44 AM EST Please discharge the patient from [facility] ([facility]). Device(s)/IVR to be discontinued: PDIVR due to completion. Thank you. documented in this encounter Plan of Treatment Upcoming Encounters Date Type Department Care Team (Late st Contact Info) Description 02/15/2023 9:15 AM EST Cardiac Studies Cardiology, [facility] [address] [facility] [place] [address] [place], Pacer Clinic [facility] [address] [facility] [place] [address] 03/21/2023 10:00 AM EST Office Visit General Internal Medicine [facility] [address] [place] [address] Hamilton Graham MD [address] [place] [address] Scheduled Procedures Name Priority Associated Diagnoses Date/Ti me COLONOSCOPY FLEXIBLE PROXIMAL DIAGNOSTIC Recall History of colon polyps Health Maintenance Due Date Last Done Comments DXA Scan 01/24/2017 01/24/2015, 01/09, 01/05/2011, Additional history exists COLONOSCOPY-EVERY 3 YRS AGES 18-100 10/26/2022 10/27/2019, 07/10/2012, 07/10/2012, Additional history exists COVID-19 Vaccine (2022-24 season) 2022 12/15/2021, 01/19/2021, 05/07/2020, Additional history [...] D LEVEL ONCE IN A LIFETIME-USE SMARTSET# [id number] Completed 08/15/2022, 02/12/2022, 08/02/2021, Additional history exists [...] by patient or by statute hierarchy) [facility] Child Health Jukebox Routeman resentative (appointed verbally by patient or by statute hierarchy) Care Teams Taxicab Dispatcher Relationship Specialty Start Date End Date Hamilton Graham MD [address] [place] [address] PCP - General Internal Medicine 07/18/15 documented as of this encounter
--- OUTSIDE RECORDS SUMMARY | 2023-02-09 08:49 | External Medical Summary | Summary of Care ---
Author Name Unknown Organization [facility] Address [address] [place] [address] Phone [phone] Care Team Providers Care Block Cuber Name Role Phone Hamilton Graham MD Primary Care Provider + Encounter Details Date Type Department Care Team (Late st Contact Info) Description 01/03/2023 Orders Only General Internal Medicine [facility] [address] [place] [address] Hamilton Graham MD 200 [place] [address] Allergies No known active allergiesdocumented as of this encounter (statuses as of 01/03/2023) Medications Medication Sig Dispensed Refills Start Date [...] 12/17/2022 Active Apixaban 5 MG Oral Tablet Take 1 Tablet by mouth in the morning and 1 Tablet before bedtime. 0 Active Amiodarone HCl 200 MG Oral Tablet (Cordarone) Take 1 Tablet by mouth in the morning and 1 Tablet before bedtime. 0 Active Potassium Chloride ER 20 MEQ Oral Tablet Extended Release Take 1 Tablet by mouth in the morning. 0 12/22/2022 Active documented as of this encounter (statuses as of 01/03/2023) Active Problems Problem Noted Date Diagnosed Date [...] as of this encounter (statuses as of 01/03/2023) Resolved Problems Problem Noted Date Diagnosed Date Resolved Date No advance directive on file 11/01/2005 03/12/2017 Overview: =no BENIGN HYPERTENSION 07/09/2001 01/15/20 09 Overview: Modified per HTN Taxonomy. Osteoporosis 01/16/2008 PURE HYPERCHOLESTEROLEM /0 10/2008 Overview: Per Lipid Taxonomy. Family history of other card iovascular diseases 03/12/2017 documented as of this encounter (statuses as of 01/03/2023) Immunizations Name Administration Dates Next Due COVID-19 [...] Recorded PHQ Adult Total Score 0 08/15/2022 Sex and Gender Information Value Date Recorded [...] 01/21/2023 4:00 PM EST Office Visit Cardiology, [facility] [address] [facility] [place] [address] Jaylen Ponce DO [address] [facility] [place] [address] 02/15/2023 9:15 AM EST Cardiac Studies Cardiology, [facility] [address] [facility] [place] [address] [place], Pacer Clinic [facility] [address] [facility] [place] [address] 03/21/2023 10:00 AM EST Office Visit General Internal Medicine [facility] 200 [facility] [place] [address] Hamilton Graham MD [address] [place] [address] Scheduled Procedures Name Priority Associated Diagnoses Date/Ti me COLONOSCOPY FLEXIBLE PROXIMAL DIAGNOSTIC Recall History of colon polyps Health Maintenance Due Date Last Done Comments DXA Scan 01/24/2017 01/24/2015, 01/09, 01/05/2011, Additional history exists COLONOSCOPY-EVERY 3 YRS AGES 18-100 10/26/2022 10/27/2019, 07/10/2012, 07/10/2012, Additional history exists COVID-19 Vaccine ( season) 2022 12/15/2021, 01/19/2021, 05/07/2020, Additional history [...] D LEVEL ONCE IN A LIFETIME-USE SMARTSET# [id number] Completed 08/15/2022, 02/12/2022, 08/02/2021, Additional history exists [...] Procedure Name Priority Date/Time Associated Diagnosis Comments CHEMISTRY-OUTSIDE Routine 12/22/2022 TSH Routine 12/19/2022 XR CHEST 1 VIEW Routine 12/18/2022 documented in this encounter Results * (ABNORMAL) CHEMISTRY-OUTSIDE (12/22/2022) Not all results display below - see scan for full detail OUTSIDE LAB (SEE SCANNED REPORT) Comment:[facility]-12/22/2023-12/09-CBC,CMP,MG,BILI,TROP I,TP,ALB,GLOB,A/G RATIO,ALK PHOS CREATININE-OUTSID E LAB 0.64 0.6 - 1.2 MG/DL OUTSIDE LAB (SEE SCANNED REPORT) EGFR-OUTSIDE LAB 81.9 ML/MIN OUT SIDE LAB (SEE SCANNED REPORT) POTASSIUM-OUTSIDE LAB 3.7 3.5 - 5.1 MMOL OUTSIDE LAB (SEE SCANNED REPORT) GLUCOSE-OUTSIDE LAB 108(A) 70 - 99 MG/DL OUTSIDE LAB (SEE SCANNED REPORT) HOURS FASTING OUTSID E LAB (SEE SCANNED REPORT) TRIGLYCERIDES-OUT SIDE LAB OUTSIDE LAB (SEE SCANNED REPORT) CHOLESTEROL-OUTSI DE LAB OUTSIDE LAB (SEE SCANNED REPORT) HDL-OUTSIDE LAB OUTS [place]Y LAB (SEE SCANNED REPORT) CHOL/HDL RATIO-OUTSIDE LAB OUTSIDE LA B (SEE SCANNED REPORT) LDL (CALCULATED)-OUTS MONTY LAB OUTSIDE LAB (SEE SCANNED REPORT) LDL (DIRECT MEASURE)-OUTSIDE LAB OUTSIDE LAB (SEE SCANNED REPORT) HEMOGLOBIN, H8L-LTPUYMI LAB OUTSIDE LAB (SEE SCANNED REPORT) PHOSPHORUS-OUTSID E LAB OUTSIDE LAB (SEE SCANNED REPORT) PTH-OUTSIDE LAB OUTS MONTY LAB (SEE SCANNED REPORT) MICROALBUMIN RATIO-OUTSIDE LAB OUTSIDE LA B (SEE SCANNED REPORT) PROTEIN, UA-OUTSIDE LAB OUTSIDE LAB (SEE SCANNED REPORT) HEMOGLOBIN-OUTSID E LAB 13.2 12 - 16 G/DL OUTSIDE LAB (SEE SCANNED REPORT) 12/22/2022 Joan Allred DO LABORATORY OUTSIDE LAB (SEE SCANNED REPORT) * TSH (12/19/2022) TSH - OUTSIDE LAB 2.239 0.300 - 4.500 UIU/ML OUTSIDE LAB (SEE SCANNED REPORT) Blood Venous blood specimen / Unknown 12/19/2022 History Per Patient LAB BLOOD ORDERABLES OUTSIDE LAB (SEE SCANNED REPORT) * XR CHEST 1 VIEW (12/18/2022) Anatomical Region Laterality Modality Chest Other 12/18/2022 Angelique Iniguez DO RADIOLOGY (RAD GENERAL) documented in this encounter Advance Directives Healthcare Agents on File Name Relationship Healthcare Agent Relationshi p Communication Dionte [facility] Health Care Repr esentative (appointed verbally by patient or by statute hierarchy) [facility] Adult Child Health Ordained Minister resentative (appointed verbally by patient or by statute hierarchy) Care Teams Block Cuber Relationship Specialty Start Date End Date Hamilton Graham MD 200 [place] [address] PCP - General Internal Medicine 07/18/15 documented as of this encounter
--- OUTSIDE RECORDS SUMMARY | 2023-02-09 08:49 | External Medical Summary | Summary of Care ---
Author Name Unknown Organization [facility] Address [address] [place] [address] Phone [phone] Care Team Providers Care Reel Winder Name Role Phone Hamilton Graham MD Primary [...] 01/21/2023 4:00 PM EST Office Visit Cardiology, [facility] [address] [facility] [place] [address] Jaylen Ponce DO [address] [place] [address] 02/15/2023 9:15 AM EST Cardiac Studies Cardiology, [facility] 132 [facility] [place] [address] [place] [facility] [address] [place] [address] 03/21/2023 10:00 AM EST Office Visit General Internal Medicine [facility] 200 [facility] [place] [address] Hamilton Graham MD 200 [facility] [place] [address] Scheduled Procedures Name Priority Associated Diagnoses Date/Ti me COLONOSCOPY FLEXIBLE PROXIMAL DIAGNOSTIC Recall History of colon polyps Health Maintenance Due Date Last Done Comments DXA Scan 01/24/2017 01/24/2015, 01/09, 01/05/2011, Additional history exists COLONOSCOPY-EVERY 3 YRS AGES 18-100 10/26/2022 10/27/2019, 07/10/2012, 07/10/2012, Additional history exists COVID-19 Vaccine ( season) 2022 12/15/2021, 01/19/2021, 05/07/2020, Additional history exists Depression Screening 08/16/2023 08/15/2022 GFR 12/26/2023 12/25/2022, 09/08, 08/15/2022, Additional history exists DTaP,Tdap,and Td Vaccines (2 [...] D LEVEL ONCE IN A LIFETIME-USE SMARTSET# [id number] Completed 08/15/2022, 02/12/2022, 08/02/2021, Additional history exists [...] Procedure Name Priority Date/Time Associated Diagnosis Comments EKG SCANNED RESULT 12/21/2022 EKG SCANNED RESULT 12/21/2022 EKG SCANNED RESULT 12/20/2022 EKG SCANNED RESULT 12/20/2022 ECHOCARDIOLOGY SCANNED RESULT 12/19/2022 EKG SCANNED RESULT 12/19/2022 EKG SCANNED RESULT 12/19/2022 documented in this encounter Results * EKG SCANNED RESULT (12/21/2022) 12/21/2022 No Physician Data Unknown EKG * EKG SCANNED RESULT (12/21/2022) 12/21/2022 No Physician Data Unknown EKG * EKG SCANNED RESULT (12/20/2022) 12/20/2022 No Physician Data Unknown EKG * EKG SCANNED RESULT (12/20/2022) 12/20/2022 No Physician Data Unknown EKG * EKG SCANNED RESULT (12/19/2022) 12/19/2022 No Physician Data Unknown EKG * EKG SCANNED RESULT (12/19/2022) 12/19/2022 No Physician Data Unknown EKG * ECHOCARDIOLOGY SCANNED RESULT (12/19/2022) 12/19/2022 No Physician Data Unknown ECHOCARDIOLOGY documented in this encounter Advance Directives Healthcare Agents on File Name Relationship Healthcare Agent Relationshi p Communication [facility] Health Care Repr esentative (appointed verbally by patient or by statute hierarchy) [facility] Internet Marketing Executive resentative (appointed verbally by patient or by statute hierarchy) Care Teams Reel Winder Relationship Specialty Start Date End Date Hamilton Graham MD 200 [facility] [address] PCP - General Internal Medicine 07/18/15 documented as of this encounter
--- OUTSIDE RECORDS SUMMARY | 2023-02-09 08:49 | External Medical Summary | Summary of Care ---
Author Name Unknown Organization [facility] Address [address] [place] [address] Phone [phone] Care Team Providers Care Net Development Manager Name Role Phone Hamilton Graahm MD Primary Care Provider + Reason for Referral * Evaluate & Treat - Unlimited Visits (Within 10 days (routine)) - Authorized Specialty Diagnoses / Procedures Referred By Aaliyah maya Referred To Contact Petroleum Refining Equipment Operator Diagnoses Advanced care planning/counseling discussion Medical home patient encounter Hamilton Graham MD [address] [place] [address] Referral ID Status Reason Start Date Expiration Date Visits Requested Visits Authorized [id number] Authorized Specialty Services Required 3 1 1 Question Answer Referral Priority Within 10 days (routine) Where should this appointment be scheduled? [facility] Program Type Case Management Complex Case Management [facility] Health Device(s) Requested Other (See Comment) - PDIVR Alarm Settings Standard per protocol Comments Primary Petroleum Refining Equipment Operator: Sharee lovell Is the patient already enrolled with another [facility] device/service? (If no, will need to "push the button") No Does the patient have a physical address? (If no, provide physical address if requesting device) Yes Requested Devices/IVR: IVR Post-Discharge Start date: 12/26/22 How many weeks: 4 If want time other than 9am, note time here: Reason for Visit * Reason Onset Date Comments case management 12/24/2022 Encounter Details Date Type Department Care Team Description 12/24/2022 Petroleum Refining Equipment Operator Telephone Family Practice [facility] [address] [facility] [place] [address] Carolyne Lund, RN [address] [place] [address] case management Allergies No known active allergiesdocumented as of this encounter (statuses as of 12/24/2022) Medications Medication Sig Dispensed Refills Start Date [...] once daily 90 Tablet 3 08/25/2022 Active Atorvastatin Calcium 20 MG Oral Tablet (Lipitor) Take 1 Tablet by mouth in the morning. In the morning.. 90 Tablet 3 12/17/2022 Active Apixaban 5 MG Oral Tablet (Eliquis) Take 1 Tablet by mouth in the morning and 1 Tablet before bedtime. 0 Active Amiodarone HCl 200 MG Oral Tablet (Cordarone) Take 1 Tablet by mouth in the morning. 0 Active Ibuprofen 200 MG Oral Capsule Take 2 Capsules by mouth every evening. 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 HTN, GOAL BELOW 140/90 01/14/2009 Overview: Modified per HTN Taxonomy. Senile osteoporosis 11/28/2007 Overview: Completed 5 years of fosamax in 2005 History of colonic polyps 12/10/2006 Overview: 07/10/12: adenoma, repeat in 5 years 05/22/07: melanosis of the colon, repeat 5 years 10/19/03: normal. repeat in 3 years documented as of this encounter (statuses as of 12/24/2022) Resolved Problems Problem Noted Date Resolved Date No advance directive on file 11/01/200504/2017 Overview: =no BENIGN HYPERTENSION 07/09/2001 01/14/2009 Overview: Modified per HTN Taxonomy. Osteoporosis 01/16/2008 PURE HYPERCHOLESTEROLEM 02/16/20 Overview: Per Lipid Taxonomy. Family history of other cardiovascular diseases 03/12/2017 documented as of this encounter (statuses as of 12/24/2022) Immunizations Name Administration Dates Next Due COVID-19 mRNA, LNP-s, No Pre serve, 2-Dose Series (Moderna) 05/07/2020,04/02/2020 COVID-19, mRNA, LNP-s, PF, B ooster, 100mcg/0.5mg (Moderna) 01/19/2021 Covid-19, Mrna, Lnp-s, Pf, B ivalent, 50 Mcg, IM, 12 yrs and above (Moderna) 12/15/2021 Pneumococcal Conjugate Vacc, 13 Valent (Prevnar) 07/05/2014 Pneumococcal Polysaccharide PPV23 (Pneumovax) 10/13/2004 Season Influenza, Quad, PF, Adjuvanted, 65+ Yrs, IM (FLUAD) 12/27/2020,11/12/2019 Seasonal Influenza, Quadrivalent, ID 12/22/2014 Seasonal Influenza, [...] = 0.6 oz pur e alcohol) occ. Food Insecurity Answer Date Recorded Within the past 12 months, y ou worried that your food would run out before you got money to buy more. Never true 01/14/2020 Within the past 12 months, t he food you bought just didn't last and you didn't have money to get more. Never true 01/14/2020 Sex Assigned at Date Recorded Female 07/11/2018 9:49 AM E DT Job Start Date Occupation Industry Not on file Not on file Not on file documented as of this encounter Miscellaneous Notes * ACP (Advance Care Planning) - Carolyne Lund RN - 12/24/2022 11:05 AM EDT Patient-centered Communication 12/24/2022 Patient does not have ACP in place. She will review the literature, but states she may not completethis. She would have her spouse and children be her healthcare representatives. Carolyne J Lund, RN * Telephone Encounter - Carolyne Lund RN - 12/24/2022 10:00 AM EDT Petroleum Refining Equipment Operator Progress Note: Date: 12/24/22 Assigned Patient Tier: 2 Connected with patient via phone. Verified patient name/. Advised patient that call is being recorded for quality and training purposes. Assessment: Pt is pleasant, alert and oriented. Pt. noted the following: She is feeling "pretty well" followingdischarge. Had an issue with her pharmacy being closed on Saturday when discharged from the hospital, [facility], [facility] she [facility] the hospital and had the nurse send a new script to a different pharmacy, so she was able to get the new prescriptions for amiodarone and eliquis. She is unsure if she is to continue losartan, she was not told to stop this but is taking this at home. Lives in 2 story home with . Does not use any DME, independent with ADLs and iADLs. Reports having "lots of family to help if needed". Has a BP cuff at home available. Denies edema, SOB, concerns with incision. Does sleep on L side, so is trying to get comfortable while avoiding L sided strain since pacer implant. Denies any SDOH needs or Phq-2. Reports does not have a medical/living will, states "you can mail me one, I will look atit, I'm not sure that I will complete it". Asked who she would choose to be healthcare sales representative education courses she, spouse and "I have a lot of children" Did you receive an alert for an annual wellness visit? No Is this call for a hospital, half-way or rehab facility discharge to home? Yes [facility] 12/18 - 12/22/22 LBBB, new onset A-fib, pacer placement. Medication Reconciliation: Medication Reconciliation completed: yes Review of Current goals: Discussed the following patient-centered CM goals with the patient during this discussion: -ATRIAL FIBRILLATION: Patient will have successful management of a-fib -Status: On Track started eliquis. -Prevent post-surgical complications -Status: On Track no drainage/redness at incision site. -Medication: Patient will achieve/maintain appropriate medication management -Status: On Track will clarify losartan with PCP. COPD Patient: No CHF Patient: NO CM Plan: Reviewed 3 Red Flags with patient. Advised to call CM with any of the following: Red Flag 1: edema,Red Flag 2: chest pain, or Red Flag 3: redness/drainage at incision site Remote Patient Monitoring: At this time, RPM not offered/considered for patient due to patient has home BP cuff. Plan for Future Contacts: Plan to follow up within 1 week to check progress on the following goals/needs cardiac/post pacer insertion status. Planned contacts from the following parties will occur this week: PCP office visit as additional contacts per workflow. Advancement/Closure Plan: Keep patient at current Tier with reassessment per workflow. Patient provided CM contact information and encouraged to call with any changes in condition. SNP Member? No PCP Notified of enrollment in CM/HM program: Yes Is Provider in agreement with POC? Yes Carolyne Lund RN Outpatient Case Management documented in this encounter Plan of Treatment Upcoming Encounters Date Type Specialty Care Team Description 12/25/2022 Office Visit Internal Medicine Kaylee Diaz MD 200 [facility] [address] 12/28/2022 Cardiac Studies Cardiology [facility]er Clinic [address] [address] 03/21/2023 Office Visit Internal Medicine Hamilton Graham MD 200 [facility] [place] [address] Scheduled Procedures Name Priority Associated Diagnoses Date/Ti me COLONOSCOPY FLEXIBLE PROXIMAL DIAGNOSTIC Recall History of colon polyps Scheduled Referrals Name Type Priority Associated Diagnoses Orde r Schedule REMOTE PATIENT MONITORING REFERRAL Referral Within 10 days (routine) Advanced care planning/counseling discussion Medical home patient encounter Ordered: 12/24/2022 Health Maintenance Due Date Last Done Comments DXA Scan 01/24/2017 01/24/2015, 01/09, 01/05/2011, Additional history exists COLONOSCOPY-EVERY 3 YRS AGES 18-100 10/26/2022 10/27/2019, 07/10/2012, 07/10/2012, Additional history exists COVID-19 Vaccine (2022-24 season) 2022 12/15/2021, 01/19/2021, 05/07/2020, Additional history exists Influenza Vaccine (FLU shot) (#1) 2022 12/27/2020, 11/12/2019, 11/09/2018, Additional history exists Depression Screening 08/16/2023 08/15/2022 GFR 09/19/2023 09/18/2022, 06/0 09/2022, 02/12/2022, Additional history exists DTaP,Tdap,and Td Vaccines (2 [...] D LEVEL ONCE IN A LIFETIME-USE SMARTSET# [id number] Completed 08/15/2022, 02/12/2022, 08/02/2021, Additional history exists GARDASIL-HPV IMMUNIZATION SERIES Aged [...] as of this encounter Visit Diagnoses Diagnosis Medical home patient encounter- Primary Other specified examination Advanced care planning/counseling discussion Other specified counseling documented in this encounter Advance Directives Healthcare Agents on File Name Relationship Healthcare Agent Relationshi p Communication Dionte Wall Spouse Health Care Repr esentative (appointed verbally by patient or by statute hierarchy) Sanjay Wall Adult Child Health Art Dealer resentative (appointed verbally by patient or by statute hierarchy) Care Teams Net Development Manager Relationship Specialty Start Date End Date Hamilton Graham MD [address] [place] [address], [place] [address] PCP - General Internal Medicine 07/18/15 documented as of this encounter
--- OUTSIDE RECORDS SUMMARY | 2023-02-09 08:49 | External Medical Summary | Summary of Care ---
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 [facility] To which of the following clinics are you referring your patient? General Cardiology Clinic - hosp fu Reason for Visit * Reason Onset Date Comments Hospital Follow-Up Hospital foll ow up from [facility] d/c on 12/18/22, evaluated for Afib. Patient states while in the hospital she had a pace maker placed. Patient states overall she is doing well. Hospital Follow-Up 12/25/2022 Encounter Details Date Type Department Care Team Description 12/25/2022 Office Visit General Internal Medicine [facility] [address] [place] [address] Kaylee Diaz MD [address] [place] [address] [address] Hospital discharge follow-up*; Tachy-maksim syndrome (HCC); S/P placement of cardiac pacemaker; LBBB (left bundle branch block); HTN, GOAL BELOW 140/90; Dyslipidemia, goal LDL below 160; Hyperparathyroidism, primary (HCC); Thyroid nodule; Hypokalemia; On amiodarone therapy Allergies No known active allergiesdocumented as of this encounter (statuses as of 12/25/2022) Medications Medication Sig Dispensed Refills Start Date [...] as of this encounter (statuses as of 12/25/2022) Active Problems Problem Noted Date Exudative age-related [...] as of this encounter (statuses as of 12/25/2022) Resolved Problems Problem Noted Date Resolved Date No advance directive on file 11/01/200504/2017 Overview: =no BENIGN HYPERTENSION 07/09/2001 01/14/2009 Overview: Modified per HTN Taxonomy. Osteoporosis 01/16/2008 PURE HYPERCHOLESTEROLEM 02/16/20 09 Overview: Per Lipid Taxonomy. Family history of other cardiovascular diseases 03/12/2017 documented as of this encounter (statuses as of 12/25/2022) Immunizations Name Administration Dates Next Due COVID-19 [...] Sign Reading Time Taken Comments Blood Pressure 118/74 12/25/2022 10:36 AM EDT Pulse 62 12/25/2022 10:36 AM EDT Temperature 37.1 C (98.8 F) 12/25/2022 1 0:36 AM EDT Respiratory Rate - - Oxygen Saturation 99% 12/25/2022 10: 36 AM EDT Inhaled Oxygen Concentration - - Weight 89.2 kg (196 lb 11.2 oz) 023 10:36 AM EDT Height 164.5 cm (5' 4.75") 12/25/2022 1 0:36 AM EDT Body Mass Index 32.99 12/25/2022 10:36 AM EDT documented in this encounter Progress Notes * Kaylee Diaz MD - 12/25/2022 10:47 AM EDT SUBJECTIVE: Carolyn Wall is a 82 year old female. Chief Complaint Patient presents with Hospital Follow-Up Hospital follow up from [facility] d/c on 12/18/22, evaluated for Afib. Patient states while in the hospital she had a pace maker placed. Patient states overall she is doing well. Hospital Follow-Up HPI: Patient presents today for hospital follow-up appointment. Wt Readings from Last 6 Encounters: 12/25/22 89.2 kg (196 lb 11.2 oz) 08/15/22 87.1 kg (192 lb) 08/15/22 88.1 kg (194 lb 3.2 oz) 02/12/22 88.5 kg (195 lb 1.6 oz) 08/03/21 88.9 kg (196 lb) 07/26/21 89.4 kg (197 lb 1.6 oz) BP Readings from Last 6 Encounters: 12/25/22 118/74 08/15/22 124/78 08/15/22 122/78 02/12/22 122/74 08/03/21 130/80 07/26/21 130/86 Reviewed available hospital records including history and physical, labs, imaging and discharge summary. Patient was admitted 12/18/2022, discharged 12/22/2022 final discharge summary not available Past medical history hypertension, dyslipidemia, LBBB, ascending aortic aneurysm, primary hypothyroidism. Had presented with symptoms of palpitations, AFib noted on family members personal field support specialist brought to the ER. Labs-normal CBC, BMP except potassium 3.3 calcium 10.4 mg 2, normal LFT troponin 14.6, TSH 2.239. -repeat potassium on the was 3.7 EKG AFib at 90 B p.m. LAD, LAFB, ST depression lateral leads Chest x-ray negative Home beta-kayla was titrated noted to have episodic sinus pauses with 1 dose beta-kayla, seen by Dr. Tapia Diagnosed with tachy-maksim syndrome, underwent dual-chamber permanent pacemaker 12/19/[address] Ling. 2D echocardiogram 12/19/2022-EF 50-55%, moderate LVH, LA mildly dilated, aortic sclerosis-mild, moderate to severe tricuspid regurgitation, mild MR 12/20/2022-EF 55-60%, LV wall motion normal, moderate LVH Discharge medications- per list new medications-Eliquis 5 mg twice daily amiodarone 200 mg twice daily, metoprolol 50 mg twice daily, Potassium 20 mEq on list here but not on dc list continued losartan 50 mg, HCTZ 25 mg, atorvastatin 20 mg, eye vitamins, aspirin 81 mg, Was recommended to consider stress test as an outpatient, defer this to Cardiology. States she did not eat much in the hospital, did have a bowel movement on returning home but has not had 1 for couple days. Denies chest pain or palpitations or dizziness or weakness or shortness of breath. Wishes to see Dr. Ponce in follow-up, advised referral will be placed, last appointment with PCPand him was 08/15/2022. 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 Amiodarone HCl 200 MG Oral Tablet (Cordarone) Take 1 Tablet by mouth in the morning and 1 Tablet before bedtime. Apixaban 5 MG Oral Tablet Take 1 Tablet by mouth in the morning and 1 Tablet before bedtime. Atorvastatin Calcium 20 MG Oral Tablet (Lipitor) Take 1 Tablet by mouth in the morning. In the morning.. 90 Tablet 3 Metoprolol Succinate ER 50 MG Oral Tablet Extended Release 24 Hour (toPROL XL) take 1 tablet by mouth once daily (Patient taking differently: 2 times a day.) 90 Tablet 3 hydroCHLOROthiazide 25 MG Oral Tablet (Hydrodiuril) take 1 tablet by mouth once daily 90 Tablet 3 Losartan Potassium 50 MG Oral Tablet (Cozaar) take 1 tablet by mouth daily 90 Tablet 2 cholecalciferol, VIT D3, (VITAMIN D3) 1000 UNITS Tablet Take 1 Tablet by mouth in the morning. OCUVITE EXTRA PO TABS Take 1 Tab by mouth 2 times a day. ASPIRIN 81 MG PO TABS one tab by mouth daily 34 5 No facility-administered medications prior to visit. Last reviewed on 12/25/2022 10:57 AM by Kaylee Diaz MD Current Outpatient Medications Medication Sig Dispense Refill [...] morning. In the morning.. 90 Tablet 3 Apixaban 5 MG Oral Tablet Take 1 Tablet by mouth in the morning and 1 Tablet before bedtime. Amiodarone HCl 200 MG Oral Tablet (Cordarone) Take 1 Tablet by mouth in the morning and 1 Tablet before bedtime. Potassium Chloride ER 20 MEQ Oral Tablet Extended Release Take 1 Tablet by mouth in the morning. No current facility-administered medications for this visit. Review of patient's allergies indicates: No Known Allergies She is unsure if she will get the COVID booster, discussed regarding RSV vaccine Immunization History Administered Date(s) Administered COVID-19 mRNA, LNP-s, No Preserve, 2-Dose Series (Moderna) 04/02/2020, 05/07/2020 COVID-19, mRNA, LNP-s, PF, Booster, 100mcg/0.5mg (Moderna) 01/19/2021 Covid-19, Mrna, Lnp-s, Pf, Bivalent, 50 Mcg, IM, 12 yrs and above (Moderna) 12/15/2021 Pneumococcal Conjugate Vacc, 13 Valent (Prevnar) 07/05/2014 Pneumococcal Polysaccharide PPV23 (Pneumovax) 10/13/2004 Season Influenza, Quad, PF, Adjuvanted, 65+ Yrs, IM (FLUAD) 11/12/2019, 12/27/2020, 12/14/2022 Seasonal Influenza, Quadrivalent, ID 12/22/2014 Seasonal Influenza, Quadrivalent, No Preserve, IM 12/13/2016 Seasonal Influenza, Split, IIV3, With Preserve, Inj 01/09/2006, 12/10/2006, 01/06/2008, 12/02/2008,12/09/2009, 12/05/2010, 12/23/2012, 12/20/2013 Seasonal Influenza, Trivalent, Adjuvanted, 65+ yrs 11/09/2018 Seasonal Influenza, Trivalent, High Dose, No Preserve, IM 11/21/2017 TD, Preservative Free 02/06/2010 TDAP (age 10 and older)(Boostrix) 07/05/2014 Varicella Zoster Vaccine (Adult) 12/23/2010 Zoster Vaccine Recombinant (Shingrix) 11/21/2017, 05/18/2018 OBJECTIVE: BP 118/74 | Pulse 62 | Temp 37.1 C (98.8 F) | Ht 1.645 m (5' 4.75") | Wt 89.2 kg (196 lb 11.2 oz) | SpO2 99% | BMI 32.99 kg/m | BSA 2.02 m PHYSICAL EXAM: General: alert, healthy, no distress, well developed Neck: supple Chest wall--left upper chest -PPM in place, resolving surrounding hematoma Heart: regular rhythm and rate,No murmurs. Lungs: lungs clear to auscultation Extremities: trace pitting edema ASSESSMENT/PLAN: Hospital discharge follow-up (Primary) - DISCH MED RECON CUR MED LIS - CARDIOLOGY REFERRAL OP - BASIC METABOLIC PANEL; Future; Expected date: 12/25/2022 Tachy-maksim syndrome (HCC) - DISCH MED RECON CUR MED LIS - CARDIOLOGY REFERRAL OP - BASIC METABOLIC PANEL; Future; Expected date: 12/25/2022 S/P placement of cardiac pacemaker - DISCH MED RECON CUR MED LIS - CARDIOLOGY REFERRAL OP - BASIC METABOLIC PANEL; Future; Expected date: 12/25/2022 LBBB (left bundle branch block) - CARDIOLOGY REFERRAL OP HTN, GOAL BELOW 140/90 Dyslipidemia, goal LDL below 160 Hyperparathyroidism, primary (HCC) Thyroid nodule Nml tsh -has declined ultrasound, endocrinology eval/DEXA scan per last PCP notes Hypokalemia - BASIC METABOLIC PANEL; Future; Expected date: 12/25/2022 On amiodarone therapy - BASIC METABOLIC PANEL; Future; Expected date: 12/25/2022 Continue current medications, recommend using compressions socks during the day as needed for leg edema. Will check with Cardiology if atorvastatin needs to be switched to rosuvastatin since she is on amiodarone-staff message sent Advised need for monitoring thyroid and liver function, keep PCP appointment in March. Follow Up: Return if symptoms worsen or fail to improve, for Labs Today. | For: Labs Today (This note was completed using the dictation program Fluency Direct. As such, there may be misspellings, word substitutions, or other variations that should not change the essence of the clinical content of this encounter note. If there is need for further clarification, please direct questions to the provider listed above.) Patient and / caregiver verbalizes understanding of above instructions and agrees with plan of care. Kaylee Diaz MD 12/25/2022 documented in this encounter Nursing Notes * Bobby Caicedo CMA - 12/25/2022 10:33 AM EDT Chief Complaint Patient presents with Hospital Follow-Up Hospital follow up from [facility] d/c on 12/18/22, evaluated for Afib. Patient states while in the hospital she had a pace maker placed. Patient states overall she is doing well. 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 Hypokalemia On amiodarone therapy 12/25/2022 11:26 AM EDT Scheduled Orders Name Type Priority Associated Diagnoses Orde r Schedule BASIC METABOLIC PANEL Lab Routine Hospital discharge follow-up 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 Hypokalemia On amiodarone therapy Expected: 12/25/2022 (Approximate), Expires: 12/25/2023 Scheduled Procedures Name Priority Associated Diagnoses Date/Ti me COLONOSCOPY FLEXIBLE PROXIMAL DIAGNOSTIC Recall History of colon polyps Scheduled Referrals Name Type Priority Associated Diagnoses Orde r Schedule CARDIOLOGY REFERRAL OP Referral Within 10 days (routine) Hospital discharge follow-up 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 LBBB (left bundle branch block) Ordered: 12/25/2022 Health Maintenance Due Date Last Done Comments DXA Scan 01/24/2017 01/24/2015, 01/09, 01/05/2011, Additional history exists COLONOSCOPY-EVERY 3 YRS AGES 18-100 10/26/2022 10/27/2019, 07/10/2012, 07/10/2012, Additional history exists COVID-19 Vaccine (5 - 2022-24 season) 2022 12/15/2021, 01/19/2021, 05/07/2020, Additional history exists Depression Screening 08/16/2023 08/15/2022 GFR 09/19/2023 09/18/2022, 0609/2022, 02/12/2022, Additional history exists DTaP,Tdap,and Td Vaccines [...] D LEVEL ONCE IN A LIFETIME-USE SMARTSET# [id number] Completed 08/15/2022, 02/12/2022, 08/02/2021, Additional history exists [...] as of this encounter Visit Diagnoses Diagnosis Hospital discharge follow-up- Primary Other follow-up examination Tachy-maksim syndrome (HCC) Sinoatrial node dysfunction S/P placement of cardiac pacemaker Cardiac pacemaker in situ LBBB (left bundle branch block) Other left bundle branch block HTN, GOAL BELOW 140/90 Unspecified essential hypertension Dyslipidemia, goal LDL below 160 Other and unspecified hyperlipidemia Hyperparathyroidism, primary (HCC) Primary hyperparathyroidism Thyroid nodule Nontoxic uninodular goiter Hypokalemia Hypopotassemia On amiodarone therapy documented in this encounter Advance Directives Healthcare Agents on File Name Relationship Healthcare Agent Relationshi p Communication Diontejennifer [place] Spouse Health Care Repr esentative (appointed verbally by patient or by statute hierarchy) Sanjay [place] Adult Child Health Curriculum Assistant resentative (appointed verbally by patient or by statute hierarchy) Care Teams Branch Service Specialist Relationship Specialty Start Date End Date Hamilton Graham MD [address] [place] [id number] PCP - General Internal Medicine 07/18/15 documented as of this encounter
--- OUTSIDE RECORDS SUMMARY | 2023-02-09 08:49 | External Medical Summary | Summary of Care ---
Author Name Unknown Organization [facility] Address [address] [place] [address] Phone [phone] Care Team Providers Care Energy Conservation Director Name Role Phone Hamilton Graham MD Primary Care Provider + Reason for Referral * Evaluate & Treat - Unlimited Visits (Within 10 days (routine)) - Authorized Specialty Diagnoses / Procedures Referred By Aaliyah maya Referred To Contact Hybrid Corn Breeder Diagnoses Advanced care planning/counseling discussion Medical home patient encounter Hamilton Graham MD [address] [place] [address] Referral ID Status Reason Start Date Expiration Date Visits Requested Visits Authorized [id number] Authorized Specialty Services Required 3 1 1 Question Answer Referral Priority Within 10 days (routine) Where should this appointment be scheduled? [facility] Program Type Case Management Complex Case Management [facility] Health Device(s) Requested Other (See Comment) - PDIVR Alarm Settings Standard per protocol Comments Primary Hybrid Corn Breeder: Sharee lovell Is the patient already enrolled with another [facility] device/service? (If no, will need to "push [...] Date Type Department Care Team Description 12/24/2022 Hybrid Corn Breeder Telephone Family Practice [facility] [address] [facility] [address] Carolyne Lund, RN [address] [place] [address] case management Allergies No known [...] Lund RN - 12/24/2022 10:00 AM EDT Hybrid Corn Breeder Progress Note: Date: 12/24/22 Assigned Patient Tier: [...] not get scripts transferred to the other [email or web address] aid, she called the hospital and had [...] who she would choose to be healthcare veterans contact representative she, spouse and "I have a lot of children" Did you receive an alert for an annual wellness visit? No Is this call for a hospital, senior care or rehab facility discharge to home? Yes [facility] 12/18 - 12/22/22 LBBB, new onset [...] Visit Internal Medicine Kaylee Diaz MD [address] [facility] [place] [address] 12/28/2022 Cardiac Studies Cardiology [facility] [address] [address] 03/21/2023 Office Visit Internal Medicine Hamilton Graham MD [address] [facility] [place] [address] Scheduled Procedures Name Priority Associated Diagnoses Date/Ti [...] D LEVEL ONCE IN A LIFETIME-USE SMARTSET# [id number] Completed 08/15/2022, 02/12/2022, 08/02/2021, Additional history exists [...] statute hierarchy) Sanjay Wall Adult Child Health Silica Mixer Operator resentative (appointed verbally by patient or by statute hierarchy) Care Teams Energy Conservation Director Relationship Specialty Start Date End Date Hamilton Graham MD [address] [place] [address], [place] [address] PCP - General Internal Medicine 07/18/15 documented as of this encounter
--- OUTSIDE RECORDS SUMMARY | 2023-02-09 08:49 | External Medical Summary | Summary of Care ---
Author Name Unknown Organization [facility] Address [address] [place] [address] Phone [phone] Care Team Providers Care Recruitment Specialist Name Role Phone Hamilton Graham MD Primary Care Provider + Encounter Details Date Type Department Care Team (Late st Contact Info) Description 12/31/2022 [facility] [address] [place] [address] Jenny Alvarado, BELKIS Medical home patient encounter* Allergies No known active allergiesdocumented as of this encounter (statuses as of 12/31/2022) Medications Medication Sig Dispensed Refills Start Date [...] as of this encounter (statuses as of 12/31/2022) Active Problems Problem Noted Date Diagnosed Date [...] as of this encounter (statuses as of 12/31/2022) Resolved Problems Problem Noted Date Diagnosed Date Resolved Date No advance directive on file 11/01/2005 03/12/2017 Overview: =no BENIGN HYPERTENSION 07/09/2001 01/15/20 Overview: Modified per HTN Taxonomy. Osteoporosis 01/16/2008 PURE HYPERCHOLESTEROLEM 10/2008 Overview: Per Lipid Taxonomy. Family history of other card iovascular diseases 03/12/2017 documented as of this encounter (statuses as of 12/31/2022) Immunizations Name Administration Dates Next Due COVID-19 [...] on file documented as of this encounter Progress Notes * Jenny Alvarado RN - 12/31/2022 11:20 AM EDT SITUATION: CM call for ALANA follow up (Week 2) BACKGROUND: Pt with pacemaker placement in 12/19. ASSESSMENT: Pt reports she is doing okay, but still tired. Pt denies any SOB, swelling or palpitations. She is states that the incision site is bruised still, black and red. She is on eliquis. Reviewed that she can use ice to the area if it is painful. Reviewed s/s of infection including redness ordrainage. RECOMMENDATION: Call CM/PCP for any chest pain, shortness of breath, nausea, vomiting, diarrhea, fever, chills or changes in your health status Jenny Alvarado RN Family Practice [facility] [address] [facility] [address] documented in this encounter Plan of Treatment Upcoming Encounters Date Type Department Care Team (Late st Contact Info) Description 01/21/2023 4:00 PM EST [facility] [place] [address] Jaylen Ponce DO [address] [place] [address] 02/15/2023 9:15 AM EST Cardiac Studies Cardiology, [facility] [address] [place] [address] [facility] [place] [address] 03/21/2023 10:00 AM EST Office Visit General Internal Medicine [facility] [place] [address] [place] [address] Hamilton Graham MD [address] [place] [address] Scheduled Procedures Name Priority Associated Diagnoses Date/Ti [...] MEDICATION NEEDED FOR OSTEOPOROSIS (REFER TO SMARTSET #1137) Addressed 07/25/2016 (Declined) Overridden w ith the intention of not completing the topic Zoster Vaccines Completed 05/18/2018, 11/09, 12/23/2010 VITAMIN D LEVEL ONCE IN A LIFETIME-USE SMARTSET# [id number] Completed 08/15/2022, 02/12/2022, 08/02/2021, Additional history exists [...] home patient encounter- Primary Other specified examination documented in this encounter Advance Directives Healthcare Agents on File Name Relationship Healthcare Agent Relationshi p Communication [facility] Health Care Repr esentative (appointed verbally by patient or by statute hierarchy) [facility] Adult Child Health Foster Parent resentative (appointed verbally by patient or by statute hierarchy) Care Teams Recruitment Specialist Relationship Specialty Start Date End Date Hamilton Graham MD [address] [place] [address] PCP - General Internal Medicine 07/18/15 documented as of this encounter
--- OUTSIDE RECORDS SUMMARY | 2023-02-09 08:49 | External Medical Summary | Summary of Care ---
Author Name Unknown Organization [facility] Address [address] [place] [address] Phone [phone] Care Team Providers Care Inseam Leveler Name Role Phone Hamilton Graham MD Primary Care Provider + Encounter Details Date Type Department Care Team (Late st Contact Info) Description 01/14/2023 Tick Eradicator Ancillary 1st Floor, [address] [place] [address] Harper Childers LPN [address] [place] [address] Medical home patient encounter* Allergies No known active allergiesdocumented as of this encounter (statuses as of 01/14/2023) Medications Medication Sig Dispensed Refills Start Date [...] as of this encounter (statuses as of 01/14/2023) Active Problems Problem Noted Date Diagnosed Date [...] as of this encounter (statuses as of 01/14/2023) Resolved Problems Problem Noted Date Diagnosed Date Resolved Date No advance directive on file 11/01/2005 03/12/2017 Overview: =no BENIGN HYPERTENSION 07/09/2001 01/15/20 09 Overview: Modified per HTN Taxonomy. Osteoporosis 01/16/2008 PURE HYPERCHOLESTEROLEM 10/2008 Overview: Per Lipid Taxonomy. Family history of other card iovascular diseases 03/12/2017 documented as of this encounter (statuses as of 01/14/2023) Immunizations Name Administration Dates Next Due COVID-19 [...] as of this encounter Progress Notes * Harper Childers LPN - 01/14/2023 10:47 AM EST SITUATION: Tier 2, ALANA call 4 for case management follow up BACKGROUND: Pacemaker placement 12/19/22 ASSESSMENT: Spoke to patient in follow up Continues to feel well Incision site from pacemaker insertion all healed with bruising faded. No concerns Appetite very good. No n/v Denies chest pain, dyspnea or lower leg edema Fatigue has improved since PPM placement Denies bowel or bladder concerns. Does wake up at night to urinate. Asking for medication refills today Needs Amiodarone, Eliquis and potassium RECOMMENDATION: Update from patient Doing well with no concerns today Assisted patient by sending message to PCP for medication refills as requested See separate encounter Review of red flags 1. Fever 2. S/s infection at PPM site 3. Chest pain 4. Changes in breathing; dyspnea, LIMA Discussion on calling with any blood in urine, stool (black or bloody), nosebleeds. To ED if would fall and hit head due to eliquis Patient verbalizes understanding Case management will follow up in approx 1-2 weeks for update Advised to call sooner if needed. Harper Childers LPN Ancillary 1st Floor, [address] [address] documented in this encounter Plan of Treatment Upcoming Encounters Date Type Department Care Team (Fletcher Contact Info) Description 01/21/2023 4:00 PM EST Office Visit Cardiology, [facility] [address] [facility] [place] [address] Jaylen Ponce DO [address] [place] [address] 02/15/2023 9:15 AM EST Cardiac Studies Cardiology, [facility] [place] [address] [place], Pacer Clinic [facility] 132 [facility] [place] [address] 03/21/2023 10:00 AM EST Office Visit General Internal Medicine [facility] 200 [facility] [place] [address] Hamilton Graham MD 200 [facility] [place] [address] Scheduled Procedures Name Priority Associated Diagnoses Date/Ti [...] D LEVEL ONCE IN A LIFETIME-USE SMARTSET# [id number] Completed 08/15/2022, 02/12/2022, 08/02/2021, Additional history exists [...] Name Relationship Healthcare Agent Relationshi p Communication [facility] Health Care Repr esentative (appointed verbally by patient or by statute hierarchy) [facility] Adult Child Health Global Risk Management Director resentative (appointed verbally by patient or by statute hierarchy) Care Teams Inseam Leveler Relationship Specialty Start Date End Date Hamilton Graham MD [address] [place] [address] PCP - General Internal Medicine 07/18/15 documented as of this encounter
--- OUTSIDE RECORDS SUMMARY | 2023-02-09 08:49 | External Medical Summary | Summary of Care ---
Author Name Unknown Organization [facility] Address [address] [place] [address] Phone [phone] Care Team Providers Care Warehouse Pricing And Inventory Clerk Name Role Phone Hamilton Graham MD Primary Care Provider + Reason for Referral * Evaluate & Treat - Unlimited Visits (Within 10 days (routine)) - Authorized Specialty Diagnoses / Procedures Referred By Aaliyah maya Referred To Contact Mechanical Design Technician Diagnoses Advanced care planning/counseling discussion Medical home patient encounter Hamilton Graham MD [address] [place] [address] Referral ID Status Reason Start Date Expiration Date Visits Requested Visits Authorized [id number] Authorized Specialty Services Required 3 1 1 Question Answer Referral Priority Within 10 days (routine) Where should this appointment be scheduled? [facility] Program Type Case Management Complex Case Management [facility] Health Device(s) Requested Other (See Comment) - PDIVR Alarm Settings Standard per protocol Comments Primary Mechanical Design Technician: Sharee lovell Is the patient already enrolled with another [facility] device/service? (If no, will need to "push [...] Date Type Department Care Team Description 12/24/2022 Mechanical Design Technician Telephone Family Practice 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 No Is this call for a hospital, alf or rehab facility discharge to home? Yes [facility] 12/18 - 12/22/22 LBBB, new onset A-fib, [...] Visit Internal Medicine Kaylee Diaz MD 200 [place] [address] 12/28/2022 Cardiac Studies Cardiology [facility], Pacer Clinic [address] [address] 03/21/2023 Office Visit Internal Medicine Hamilton Graham MD 200 [facility] [place] [address] Scheduled Procedures Name Priority Associated Diagnoses Date/Ti [...] D LEVEL ONCE IN A LIFETIME-USE SMARTSET# [id number] Completed 08/15/2022, 02/12/2022, 08/02/2021, Additional history exists [...] statute hierarchy) Sanjay Wall Adult Child Health Lawn Service Worker resentative (appointed verbally by patient or by statute hierarchy) Care Teams Warehouse Pricing And Inventory Clerk Relationship Specialty Start Date End Date Hamilton Graham MD [address] [place] [address], [place] [address] PCP - General Internal Medicine 07/18/15 documented as of this encounter
--- OUTSIDE RECORDS SUMMARY | 2023-02-09 08:49 | External Medical Summary | Summary of Care ---
Author Name Unknown Organization [facility] Address [address] [place] [address] Phone [phone] Care Team Providers Care Gear Repair Supervisor Name Role Phone Hamilton Graham MD Primary Care Provider + Reason for Referral * Evaluate & Treat - Unlimited Visits (Within 10 days (routine)) - Authorized Specialty Diagnoses / Procedures Referred By Aaliyah maya Referred To Contact Retail Consultant Diagnoses Advanced care planning/counseling discussion Medical home patient encounter Hamilton Graham MD [address] [place] [address] Referral ID Status Reason Start Date Expiration Date Visits Requested Visits Authorized [id number] Authorized Specialty Services Required 3 1 1 Question Answer Referral Priority Within 10 days (routine) Where should this appointment be scheduled? [facility] Program Type Case Management Complex Case Management [facility] Health Device(s) Requested Other (See Comment) - PDIVR Alarm Settings Standard per protocol Comments Primary Retail Consultant: Sharee lovell Is the patient already enrolled with another [facility] device/service? 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 No Is this call for a hospital, assisted or rehab facility discharge to home? Yes [facility] 12/18 - 12/22/22 LBBB, new onset A-fib, [...] Description 12/25/2022 Office Visit Internal Medicine Kaylee Diza MD 200 [place] [address] 12/28/2022 Cardiac Studies Cardiology [facility], Pacer Clinic [address] [address] 03/21/2023 Office Visit Internal Medicine Hamilton Graham MD 200 [facility] [place] [address] Scheduled Procedures Name Priority Associated Diagnoses Date/Ti [...] D LEVEL ONCE IN A LIFETIME-USE SMARTSET# [id number] Completed 08/15/2022, 02/12/2022, 08/02/2021, Additional history exists [...] Relationship Healthcare Agent Relationshi p Communication Dionte Wlal Spouse Health Care Repr esentative (appointed verbally by patient or by statute hierarchy) Sanjay Wall Adult Child Health It Architecture Consultant resentative (appointed verbally by patient or by statute hierarchy) Care Teams Gear Repair Supervisor Relationship Specialty Start Date End Date Hamilton Graham MD [address] [place] [address], [place] [address] PCP - General Internal Medicine 07/18/15 documented as of this encounter
--- OUTSIDE RECORDS SUMMARY | 2023-02-09 08:49 | External Medical Summary | Summary of Care ---
Author Name Unknown Organization [facility] Address [address] [place] [address] Phone [phone] Care Team Providers Care General Surgeon Name Role Phone Hamilton Graham MD Primary Care Provider + Reason for Visit * Reason Comments Outpatient Testing Encounter Details Date Type Department Care Team Description 12/25/2022 Laboratory Laboratory [facility] [address] [place] [address] [facility] 200 [facility] [place] [address] Hospital discharge follow-up; Tachy-maksim syndrome (HCC); S/P placement of cardiac pacemaker; Hypokalemia; On amiodarone therapy Allergies No known [...] Influenza, Split, I IV3, With Preserve, Inj 12/20/2013,12/23/2012,12/05/2010,1003/2009,12/02/2008,01/06/2008,12/11/19 07,01/09/2006 Seasonal Influenza, Trivalen t, Adjuvanted, 65+ [...] Care Team Description 12/28/2022 Cardiac Studies Cardiology [facility] [address] [place] [address] 01/21/2023 Office Visit Cardiology Jaylen Ponce DO [address] [place] [address] 03/21/2023 Office Visit Internal Medicine Hamilton Graham MD [address] [place] [address] Pending Results Name Type Priority Associated Diagnoses Date /Time BASIC METABOLIC PANEL Lab Routine Hospital discharge follow-up 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 Hypokalemia On amiodarone therapy 12/25/2022 11:26 AM EDT Scheduled Procedures Name Priority Associated Diagnoses Date/Ti me COLONOSCOPY FLEXIBLE PROXIMAL DIAGNOSTIC Recall History of colon polyps Health Maintenance Due Date Last Done Comments DXA Scan 01/24/2017 01/24/2015, 01/09, 01/05/2011, Additional history exists COLONOSCOPY-EVERY 3 YRS AGES 18-100 10/26/2022 10/27/2019, 07/10/2012, 07/10/2012, Additional history exists COVID-19 Vaccine ( season) 2022 12/15/2021, 01/19/2021, 05/07/2020, Additional history exists Depression Screening 08/16/2023 08/15/2022 GFR 09/19/2023 09/18/2022, 06/09/2022, 02/12/2022, Additional history exists DTaP,Tdap,and Td Vaccines [...] D LEVEL ONCE IN A LIFETIME-USE SMARTSET# [id number] Completed 08/15/2022, 02/12/2022, 08/02/2021, Additional history exists [...] this encounter Visit Diagnoses Diagnosis Hospital discharge follow-up Other follow-up examination Tachy-maksim syndrome (HCC) Sinoatrial node dysfunction S/P placement of cardiac pacemaker Cardiac pacemaker in situ Hypokalemia Hypopotassemia On amiodarone therapy documented in this encounter Advance Directives Healthcare Agents on File Name Relationship Healthcare Agent Relationshi p Communication Dionte Wall Spouse Health Care Repr esentative (appointed verbally by patient or by statute hierarchy) Sanjay [place] Adult Child Health Staff Climate Scientist resentative (appointed verbally by patient or by statute hierarchy) Care Teams General Surgeon Relationship Specialty Start Date End Date Hamilton Graham MD 200 [place] [address] PCP - General Internal Medicine 07/18/15 documented as of this encounter
--- OUTSIDE RECORDS SUMMARY | 2023-02-09 08:49 | External Medical Summary | Summary of Care ---
Author Name Unknown Organization [facility] Address [address] [place] [address] Phone [phone] Care Team Providers Care Hot Plate Plywood Press Operator Name Role Phone Hamilton Graham MD Primary Care Provider + Encounter Details Date Type Department Care Team (Late st Contact Info) Description 01/07/2023 Rn Neonatal Icu Ancillary 1st Floor, [address] [place] [address] Harper Childers LPN [address] [place] [address] Medical home patient encounter* Allergies No known active allergiesdocumented as of this encounter (statuses as of 01/07/2023) Medications Medication Sig Dispensed Refills Start Date [...] as of this encounter (statuses as of 01/07/2023) Active Problems Problem Noted Date Diagnosed Date [...] as of this encounter (statuses as of 01/07/2023) Resolved Problems Problem Noted Date Diagnosed Date Resolved Date No advance directive on file 11/01/2005 03/12/2017 Overview: =no BENIGN HYPERTENSION 07/09/2001 01/15/20 09 Overview: Modified per HTN Taxonomy. Osteoporosis 01/16/2008 PURE HYPERCHOLESTEROLEM 10/2008 Overview: Per Lipid Taxonomy. Family history of other card iovascular diseases 03/12/2017 documented as of this encounter (statuses as of 01/07/2023) Immunizations Name Administration Dates Next Due COVID-19 [...] Progress Notes * Harper Childers LPN - 01/07/2023 9:57 AM EDT SITUATION: Tier 2, ALANA call 3 for case management follow up BACKGROUND: Pacemaker placement 12/19/22 ASSESSMENT: Spoke to patient in follow up Continues to do well post procedure and feeling much better Tiredness MUCH improved Denies chest pain, fluttering, palpitations Denies dyspnea, LIMA or cough Afebrile Incision site completely healed with no concerns for infection Denies bowel or bladder concerns Appetite "too good". Denies N/V Denies lower extremity edema No falls noted since last contact Denies lightheadedness, dizziness, syncope, near syncope episodes Cardiology f/u planned 01/21/23 RECOMMENDATION: Update from patient Doing well post PPM Red flags reviewed Fever S/s infection at PPM site Chest pain, palpitations, fluttering Changes in breathing; dyspnea, LIMA CM will follow up in the next 7-10 days for update No new issues or concerns today Advised to call if any issues, concerns or questions Harper Childers LPN Ancillary 1st [facility], [address] [address] documented in this encounter Plan of Treatment Upcoming Encounters Date Type Department Care Team (Late st Contact Info) Description 01/21/2023 4:00 PM EST Office Visit Cardiology, [facility] [address] [place] [address] Jaylen Ponce DO [address] [place] [address] 02/15/2023 9:15 AM EST Cardiac Studies Cardiology, [facility] 132 [facility] [place] [address] [facility] [address] [place] [address] 03/21/2023 10:00 AM EST Office Visit General Internal Medicine [facility] 200 [place] [address] Hamilton Graham MD 200 [facility] [address] Scheduled Procedures Name Priority Associated Diagnoses Date/Ti [...] D LEVEL ONCE IN A LIFETIME-USE SMARTSET# [id number] Completed 08/15/2022, 02/12/2022, 08/02/2021, Additional history exists [...] Relationship Healthcare Agent Relationshi p Communication Dionte [facility] Health Care Repr esentative (appointed verbally by patient or by statute hierarchy) [facility] Adult Child Health Nursing Informatics Analyst resentative (appointed verbally by patient or by statute hierarchy) Care Teams Hot Plate Plywood Press Operator Relationship Specialty Start Date End Date Hamilton Graham MD 200 [place] [address] PCP - General Internal Medicine 07/18/15 documented as of this encounter
--- OUTSIDE RECORDS SUMMARY | 2023-02-09 08:49 | External Medical Summary ---
Author Name Unknown Address Unknown Organization [facility] [address] [place] [address] Laboratory Report Ordering Provider Test Date Status SOFÍA MEDEL 12/25/2022 11:26:56 Final Observation Date Value Abnormality Reference (Units ) Status BUN 12/25/2022 11:26:56 15 6-20 (mg/dL) Final Creatinine 12/25/2022 11:26:56 0.8 0.5-1.0 (mg/dL) Final Glomerular filtration rate/1.73 sq M.predicted [Volume Rate/Area] in Serum, Plasma or Blood by Creatinine-based formula (CKD-EPI) 12/25/2022 11:26:56 72 >=60 (mL/min) Final eGFR is calculated based on the CKD-EPI 2020 equation SODIUM 12/25/2022 11:26:56 141 135-146 (m mol/L) Final Potassium 12/25/2022 11:26:56 4.3 3.5-5.1 (m mol/L) Final Cl 12/25/2022 11:26:56 102 98-107 (mm ol/L) Final CO2 12/25/2022 11:26:56 27 22-32 (mmo l/L) Final Anion gap 12/25/2022 11:26:56 12 7-15 (mmol /L) Final Glucose 12/25/2022 11:26:56 95 70-120 (mg /dL) Final Calcium 12/25/2022 11:26:56 10.2 8.4-10.2 ( mg/dL) Final Performing Location [facility] [address] [place] [address]
--- OUTSIDE RECORDS SUMMARY | 2023-02-09 08:49 | External Medical Summary | Summary of Care ---
Author Name Unknown Organization [facility] Address [address] [place] [address] Phone [phone] Care Team Providers Care Shine Worker Name Role Phone Hamilton Graham MD Primary Care Provider + Reason for Visit * Reason Comments eRx-Medication Refill Encounter Details Date Type Department Care Team (Late st Contact Info) Description 01/14/2023 Refill General Internal Medicine [facility] 200 [facility] [place] [address] Hamilton Graham MD 200 [place] [address] Allergies No known active allergiesdocumented as of this encounter (statuses as of 01/15/2023) Medications Medication Sig Dispensed Refills Start Date [...] the morning.. 90 Tablet 3 12/17/2022 Active Amiodarone HCl 200 MG Oral Tablet (Cordarone) Take 1 Tablet by mouth in the morning and 1 Tablet before bedtime. 180 Tablet 3 01/14/2023 Active Apixaban 5 MG Oral Tablet (Eliquis) Take 1 Tablet by mouth in the morning and 1 Tablet before bedtime. 180 Tablet 3 01/14/2023 Active Potassium Chloride ER 20 MEQ Oral Tablet Extended Release Take 1 Tablet by mouth in the morning. 90 Tablet 3 01/14/2023 Active documented as of this encounter (statuses as of 01/15/2023) Active Problems Problem Noted Date Diagnosed Date [...] as of this encounter (statuses as of 01/15/2023) Resolved Problems Problem Noted Date Diagnosed Date Resolved Date No advance directive on file 11/01/2005 03/12/2017 Overview: =no BENIGN HYPERTENSION 07/09/2001 01/15/20 09 Overview: Modified per HTN Taxonomy. Osteoporosis 01/16/2008 PURE HYPERCHOLESTEROLEM /0 10/2008 Overview: Per Lipid Taxonomy. Family history of other card iovascular diseases 03/12/2017 documented as of this encounter (statuses as of 01/15/2023) Immunizations Name Administration Dates Next Due COVID-19 [...] encounter Miscellaneous Notes * Telephone Encounter - [place] RPh - 01/15/2023 11:10 AM EST Refused Prescriptions: Disp Refills Potassium Chloride ER 20 MEQ Oral Tablet E*30 Tab* Sig: take 1tablet by mouth once dailyRefused By: RANCHO IZAGUIRRE for Refusal: Duplicate Request Eliquis 5 MG Oral Tablet (Apixaban) 60 Tab* Sig: take 1 tablet by mouth twice a dayRefused By: RANCHO IZAGUIRRE for Refusal: Duplicate Request Amiodarone HCl 200 MG Oral Tablet (Cordaro*60 Tab* Sig: take 1 tablet by mouth twice a dayRefused By: RANCHO IZAGUIRRE for Refusal: Duplicate Request documented in this encounter Plan of Treatment Upcoming Encounters Date Type Department Care Team (Late st Contact Info) Description 01/21/2023 4:00 PM EST Office Visit Cardiology, [address] [place] [address] Jaylen Ponce DO [address] [place] [address] 02/15/2023 9:15 AM EST Cardiac Studies Cardiology, [facility] [address] [place] [address] [place], Pacer Clinic [facility] [address] [place] [address] 03/21/2023 10:00 AM EST Office Visit General Internal Medicine [facility] 200 [facility] [place] [address] Hamilton Graham MD 200 [facility] [place] [address] Scheduled Procedures Name Priority Associated Diagnoses Date/Ti [...] D LEVEL ONCE IN A LIFETIME-USE SMARTSET# [id number] Completed 08/15/2022, 02/12/2022, 08/02/2021, Additional history exists [...] Name Relationship Healthcare Agent Relationshi p Communication [facility] Health Care Repr esentative (appointed verbally by patient or by statute hierarchy) [facility] Health Foreclosure Paralegal resentative (appointed verbally by patient or by statute hierarchy) Care Teams Shine Worker Relationship Specialty Start Date End Date Hamilton Graham MD 200 [place] [address] PCP - General Internal Medicine 07/18/15 documented as of this encounter
--- OUTSIDE RECORDS SUMMARY | 2023-02-09 08:49 | External Medical Summary | Summary of Care ---
Author Name Unknown Organization [facility] Address [address] [place] [address] Phone [phone] Care Team Providers Care Bolt Threader Name Role Phone Hamilton Graham MD Primary Care Provider + Encounter Details Date Type Department Care Team (Late st Contact Info) Description 12/19/2022 Result Scan Unspecified Department Stefania Mann, DO [facility] [place] [address] <No scans attached> Allergies No known active [...] 01/21/2023 4:00 PM EST Office Visit Cardiology, [facility] [address] [place] [address] Jaylen Ponce DO 132 [facility] [place] [address] 02/15/2023 9:15 AM EST Cardiac Studies Cardiology, [facility] 132 [facility] [place] [address] [facility] 132 [facility] [place] [address] 03/21/2023 10:00 AM EST Office Visit General Internal Medicine [facility] 200 [facility] [place] [address] Hamilton Graham MD 200 [facility] [place] [address] Scheduled Procedures Name Priority Associated Diagnoses Date/Ti [...] D LEVEL ONCE IN A LIFETIME-USE SMARTSET# [id number] Completed 08/15/2022, 02/12/2022, 08/02/2021, Additional history exists [...] Results * CARDIOLOGY SCANNED RESULT (12/19/2022) 12/19/2022 Stefania Mann DO OTHER documented in this encounter Advance Directives Healthcare Agents on File Name Relationship Healthcare Agent Relationshi p Communication Dionte [facility] Health Care Repr esentative (appointed verbally by patient or by statute hierarchy) [facility] Adult Child Health Bottling Room Worker resentative (appointed verbally by patient or by statute hierarchy) Care Teams Bolt Threader Relationship Specialty Start Date End Date Hamilton Graham MD 200 [facility] [place] [facility] [place] [address] PCP - General Internal Medicine 07/18/15 documented as of this encounter
--- OUTSIDE RECORDS SUMMARY | 2023-02-09 08:49 | External Medical Summary | Summary of Care ---
Author Name Unknown Organization [facility] Address [address] [place] [facility] [place] [address] Phone [phone] Care Team Providers Care Armature Tester Name Role Phone Hamilton Graham MD Primary Care Provider + Reason for Visit * Reason Onset Date Comments Appointment 12/19/2022 Encounter Details Date Type Department Care Team Description 12/19/2022 Telephone Cardiology, [facility] 132 [facility] [place] [address] Stefania Mann, DO 400 [facility] [place] [address] Appointment Allergies No known active allergiesdocumented as of [...] 08/17/2019 Active hydroCHLOROthiazide 25 MG Oral Tablet (Hydrodiuril)Indicatio ns:Thoracic aortic aneurysm without rupture (HCC),HTN, goal below 140/90,Essential hypertension with goal blood pressure less than 130/80 take 1 tablet by mouth once daily 90 Tablet 3 06/26/2022 Active Losartan Potassium 50 MG Oral Tablet (Cozaar)Indications:HT N, goal below 140/90 take 1 tablet by [...] 07/18/2017 LBBB (left bundle branch block) 03/12/19 Dyslipidemia, goal LDL below 160 009 Overview: [...] encounter Miscellaneous Notes * Telephone Encounter - Amy Luna RN - 12/24/2022 11:04 AM EDT Called, spoke with patient. Assisted in scheduling device/wound check 12/28/22. 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/2022 Will need 1 week follow up and wound check documented in this encounter Plan of Treatment Upcoming Encounters Date Type Specialty Care Team Description 12/25/2022 Office Visit Internal Medicine Kaylee Diaz MD 200 [place] [address] 12/28/2022 Cardiac Studies Cardiology [facility], [address] [address] 03/21/2023 Office Visit Internal Medicine Hamilton Graham MD 200 [place] [address] Scheduled Procedures Name Priority Associated Diagnoses Date/Ti [...] D LEVEL ONCE IN A LIFETIME-USE SMARTSET# [id number] Completed 08/15/2022, 02/12/2022, 08/02/2021, Additional history exists [...] Relationship Healthcare Agent Relationshi p Communication Dionte [place] Spouse Health Care Repr esentative (appointed verbally by patient or by statute hierarchy) [facility] Adult Child Health [employer] Weapons Sergeant resentative (appointed verbally by patient or by statute hierarchy) Care Teams Armature Tester Relationship Specialty Start Date End Date Hamilton Graham MD [address] [place] [address] PCP - General Internal Medicine 07/18/15 documented as of this encounter
--- OUTSIDE RECORDS SUMMARY | 2023-02-09 08:49 | External Medical Summary | Summary of Care ---
Author Name Unknown Organization [facility] Address [address] [place] [address] Phone [phone] Care Team Providers Care Box Fabricator Name Role Phone Hamilton Graham MD Primary Care Provider + Reason for Visit * Reason Comments Pacemaker Clinic Encounter Details Date Type Department Care Team (Latest Contact Info) Description 12/28/2022 12:00 PM EDT Cardiac Studies Cardiology, [facility] [address] [place] [address] [place], [facility] [address] [place] [address] SSS (sick sinus syndrome) (HCC)*; Atrial fibrillation (HCC); Cardiac pacemaker in situ; Paroxysmal atrial fibrillation (HCC) Allergies No known active allergiesdocumented as of this encounter (statuses as of 01/04/2023) Medications Medication Sig Dispensed Refills Start Date [...] as of this encounter (statuses as of 01/04/2023) Active Problems Problem Noted Date Diagnosed Date [...] as of this encounter (statuses as of 01/04/2023) Resolved Problems Problem Noted Date Diagnosed Date Resolved Date No advance directive on file 11/01/2005 03/12/2017 Overview: =no BENIGN HYPERTENSION 07/09/2001 01/15/20 09 Overview: Modified per HTN Taxonomy. Osteoporosis 01/16/2008 PURE HYPERCHOLESTEROLEM 12/0 10/2008 Overview: Per Lipid Taxonomy. Family history of other card iovascular diseases 03/12/2017 documented as of this encounter (statuses as of 01/04/2023) Immunizations Name Administration Dates Next Due COVID-19 [...] as of this encounter Progress Notes * Noris Joiner RN - 01/04/2023 3:24 PM EDT Patient and implanted device were evaluated today in [facility]. Providers please see scanned report in the Scans tab. Noris Joiner RN documented in this encounter Nursing Notes * Amy Luna RN - 12/28/2022 3:54 PM EDT Patient and implanted device were evaluated today in the [facility]. Providers please see scanned report in the Scans tab. Post op dressing removed today. Incision well approximated, clean, dry. Minimal post op swelling noted around pocket area. No redness. Late stage of yellow bruising noted pocket area/left breast. Patient teaching about new devices and device follow explained. Do not raise your elbow on the incision side above shoulder level in a repetitive manner. This gives the device lead wires time to attach securely inside your heart. Cleanse area with antibacterial soap and pat dry Advoidance of dental procedures for 6 months Carry an ID card that contains information about your pacemaker. You can show this card if your pacemaker sets off a metal detector. You should also show it to avoid screening with a hand-held security wand. Keep your cell phone away from your pacemaker. Dont carry the phone in your shirt pocket, even when its turned off. Avoid strong magnets. Examples are those used in MRIs or in hand-held security wands. Avoid strong electrical sanchez. Examples are those made by radio transmitting towers, ham radios, and heavy-duty electrical equipment. Avoid leaning over the open toscano of a running car. A running engine creates an electrical field. Return in 6 to 8 weeks for chronic threshold testing. Tech: Carmina Du documented in this encounter Plan of Treatment Upcoming Encounters Date Type Department Care Team (Late st Contact Info) Description 01/21/2023 4:00 PM EST Office Visit Cardiology, [facility] 132 [place] [address] Jaylen Ponce DO 132 [place] [address] 02/15/2023 9:15 AM EST Cardiac Studies Cardiology, [facility] 132 [place] [address] [place], [facility] 132 [place] [address] 03/21/2023 10:00 AM EST Office Visit General Internal Medicine [facility] 200 [facility] [place], [place] [address] Hamilton Graham MD 200 [facility], [place] [address] Scheduled Orders Name Type Priority Associated Diagnoses Orde r Schedule POSTOP F-UP VISIT IN GLOBAL Procedures Routine SSS (sick sinus syndrome) (HCC) Atrial fibrillation (HCC) Cardiac pacemaker in situ Ordered: 12/28/2022 Scheduled Procedures Name Priority Associated Diagnoses Date/Ti me COLONOSCOPY FLEXIBLE PROXIMAL DIAGNOSTIC Recall History of colon polyps Health Maintenance Due Date Last Done Comments DXA Scan 01/24/2017 01/24/2015, 01/09, 01/05/2011, Additional history exists COLONOSCOPY-EVERY 3 YRS AGES 18-100 10/26/2022 10/27/2019, 07/10/2012, 07/10/2012, Additional history exists COVID-19 Vaccine ( - 2022-24 season) 2022 12/15/2021, 01/19/2021, 05/07/2020, [...] D LEVEL ONCE IN A LIFETIME-USE SMARTSET# [id number] Completed 08/15/2022, 02/12/2022, 08/02/2021, Additional history exists [...] as of this encounter Visit Diagnoses Diagnosis SSS (sick sinus syndrome) (HCC)- Primary Sinoatrial node dysfunction Atrial fibrillation (HCC) Atrial fibrillation Cardiac pacemaker in situ Paroxysmal atrial fibrillation (HCC) Atrial fibrillation documented in this encounter Advance Directives Healthcare Agents on File Name Relationship Healthcare Agent Relationshi p Communication [facility] Spouse Health Care Repr esentative (appointed verbally by patient or by statute hierarchy) [facility] Rep resentative (appointed verbally by patient or by statute hierarchy) Care Teams Box Fabricator Relationship Specialty Start Date End Date Hamilton Graham MD 200 [place] [address] PCP - General Internal Medicine 07/18/15 documented as of this encounter
--- OUTSIDE RECORDS SUMMARY | 2023-02-09 08:49 | External Medical Summary | Summary of Care ---
Author Name Unknown Organization [facility] Address [address] [place] [address] Phone [phone] Care Team Providers Care Autobody Technician Name Role Phone Hamilton Graham MD Primary Care Provider + Encounter Details Date Type Department Care Team (Late st Contact Info) Description 12/31/2022 District SuperintendentSenior Backup Administrator Practice [facility] [address] [place] [address] Jenny Alvarado, BELKIS Medical home patient encounter* [...] Notes * Jenny Alvarado RN - 12/31/2022 10:28 AM EDT Error documented in this encounter Plan of Treatment Upcoming Encounters Date Type Department Care Team (Late st Contact Info) Description 01/21/2023 4:00 PM EST Office Visit Cardiology, [facility] [address] [facility] [place] [address] Jaylen Ponce DO [address] [facility] [address] 02/15/2023 9:15 AM EST Cardiac Studies Cardiology, [facility] [place] [address] [facility] [address] [facility] [place] [address] 03/21/2023 10:00 AM EST Office Visit General Internal Medicine [facility] [address] [place] [address] Hamilton Graham MD 200 [facility] [address] [place] [address] Scheduled Procedures Name Priority Associated Diagnoses Date/Ti [...] D LEVEL ONCE IN A LIFETIME-USE SMARTSET# [id number] Completed 08/15/2022, 02/12/2022, 08/02/2021, Additional history exists [...] by patient or by statute hierarchy) Sanjay Herrerapster Adult Child Health Parimutuel Clerk resentative (appointed verbally by patient or by statute hierarchy) Care Teams Autobody Technician Relationship Specialty Start Date End Date Hamilton Graham MD [address] [place] [address] PCP - General Internal Medicine 07/18/15 documented as of this encounter
--- OUTSIDE RECORDS SUMMARY | 2023-02-09 08:49 | External Medical Summary | Summary of Care ---
Author Name Unknown Organization [facility] [address] [facility] [address] Phone [phone] Care Team Providers Care Jacquard Loom Card Changer Name Role Phone Hamilton Graham MD Primary Care Provider + Encounter Details Date Type Department Care Team (Late st Contact Info) Description 01/16/2023 Result Scan Unspecified Department Jaylen Ponce, DO [address] [place] [address] <No scans attached> Allergies No known active allergiesdocumented as of this encounter (statuses as of 01/16/2023) Medications Medication Sig Dispensed Refills Start Date [...] as of this encounter (statuses as of 01/16/2023) Active Problems Problem Noted Date Diagnosed Date [...] as of this encounter (statuses as of 01/16/2023) Resolved Problems Problem Noted Date Diagnosed Date Resolved Date No advance directive on file 11/01/2005 03/12/2017 Overview: =no BENIGN HYPERTENSION 07/09/2001 01/15/20 09 Overview: Modified per HTN Taxonomy. Osteoporosis 01/16/2008 PURE HYPERCHOLESTEROLEM /10/2008 Overview: Per Lipid Taxonomy. Family history of other card iovascular diseases 03/12/2017 documented as of this encounter (statuses as of 01/16/2023) Immunizations Name Administration Dates Next Due COVID-19 [...] 01/21/2023 4:00 PM EST Office Visit Cardiology, [facility] [place] [address] Jaylen Ponce DO 132 [facility] [place] [address] 02/15/2023 9:15 AM EST Cardiac Studies Cardiology, [facility] 132 [facility] [place] [address] [place] [facility] 132 [facility] [place] [address] 03/21/2023 10:00 AM EST Office Visit General Internal Medicine [facility] [address] [place], [place] [address] Hamilton Graham MD [address] [facility] [place] [address] Scheduled Procedures Name Priority Associated Diagnoses Date/Ti me COLONOSCOPY FLEXIBLE PROXIMAL DIAGNOSTIC Recall History of colon polyps Health Maintenance Due Date Last Done Comments DXA Scan 01/24/2017 01/24/2015, 01/09, 01/05/2011, Additional history exists COLONOSCOPY-EVERY 3 YRS AGES 18-100 10/26/2022 10/27/2019, 07/10/2012, 07/10/2012, Additional history exists COVID-19 Vaccine (5 2022-24 season) 2022 12/15/2021, 01/19/2021, 05/07/2020, Additional [...] D LEVEL ONCE IN A LIFETIME-USE SMARTSET# [id number] Completed 08/15/2022, 02/12/2022, 08/02/2021, Additional history exists [...] Date/Time Associated Diagnosis Comments CARDIOLOGY SCANNED RESULT 01/16/2023 documented in this encounter Results * CARDIOLOGY SCANNED RESULT (01/16/2023) 01/16/2023 Jaylen Ponce DO OTHER documented in this encounter Advance Directives Healthcare Agents on File Name Relationship Healthcare Agent Relationshi p Communication Dionte Braman Spouse Health Care Repr esentative (appointed verbally by patient or by statute hierarchy) [facility] U[employer] Consultant resentative (appointed verbally by patient or by statute hierarchy) Care Teams Jacquard Loom Card Changer Relationship Specialty Start Date End Date Hamilton Graham MD 200 [place] [address] PCP - General Internal Medicine 07/18/15 documented as of this encounter
--- OUTSIDE RECORDS SUMMARY | 2023-02-09 08:50 | External Medical Summary | Summary of Care ---
Author Name Unknown Organization [facility] Address [address] [place] [address] Phone [phone] Care Team Providers Care Spice Cleaner Name Role Phone Hamilton Alberto MD Primary Care Provider + Reason for Referral * Ancillary Services (Within 30 days (routine)) - Authorized Specialty Diagnoses / Procedures Referred By Contedna t Referred To Contact Gastroenterology Diagnoses History of colon polyps Hamilton Alberto MD [address] [place] [id number] Referral ID Status Reason Start Date Expiration Date Visits Requested Visits Authorized [id number] Authorized Ancillary Services Required 08/15/2022 999 999 Question Answer Referral Priority Within 30 days (routine) Comments ALERT: Do not order for pediatric patients (18 years or younger). Cancel off screen and order PEDS GASTROENTEROLOGY CONSULT (Type: 1 visit only-Evaluate and Treat) The following Pt. Instructions are available: - Gastro Colonoscopy Prep Instructions [[id number]] - Gastro Colonoscopy Prep Instructions (Tunisian Version) [[id number]] Go to the Pt. Instructions section within the Visit Navigator to access. Colonoscopy ASGE Guidelines: Average risk screening (begin at age 50, 10 year intervals) and Postadenoma resection: 3-10 adenomas or adenoma with villous features, greater than or equal 1 cm, or with high-grade dysplasia (3 yr intervals) ADDITIONAL INFORMATION 1. Is the patient on Coumadin? No 2. Is the patient on Pradaxa? No Reason for Visit * Reason Comments Re-Check 6 month return. 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 0 Active Ibuprofen 200 MG Oral Capsule Take 2 Capsules by mouth every evening. Takes two in am and two in the evening 30 Cap 0 11/30/2015 Active cholecalciferol, VIT D3, (VITAMIN D3) 1000 UNITS Tablet Take 1 Tablet by mouth in the morning. 0 08/17/2019 Active Metoprolol Succinate ER 50 MG Oral Tablet Extended Release 24 Hour (toPROL XL)Indications:HTN, goal below 140/90 take 1 tablet by mouth once daily 90 Tablet 3 08/19/2021 Active Atorvastatin Calcium 20 MG Oral Tablet (Lipitor) Take by mouth 1 Tablet in the morning. 90 Tablet 3 11/24/2021 Active hydroCHLOROthiazide 25 MG Oral Tablet (Hydrodiuril)Indicati ons:Thoracic aortic aneurysm without rupture (HCC),HTN, goal below 140/90,Essential hypertension with goal blood pressure less than 130/80 take 1 tablet by mouth once daily 90 Tablet 3 06/26/2022 Active Losartan Potassium 50 MG Oral Tablet (Cozaar)Indications:H TN, goal below 140/90 take 1 tablet by mouth daily 90 Tablet 2 2022 Active documented as of this encounter (statuses as of 08/19/2022) Active Problems Problem Noted Date Exudative age-related [...] as of this encounter (statuses as of 08/19/2022) Resolved Problems Problem Noted Date Resolved Date No advance directive on file 11/01/200504/2017 Overview: =no BENIGN HYPERTENSION 07/09/2001 01/14/2009 Overview: Modified per HTN Taxonomy. Osteoporosis 01/16/2008 PURE HYPERCHOLESTEROLEM 02/16/20 09 Overview: Per Lipid Taxonomy. Family history of other cardiovascular diseases 03/12/2017 documented as of this encounter (statuses as of 08/19/2022) Immunizations Name Administration Dates Next Due COVID-19 mRNA, LNP-s, No Pre serve, 2-Dose Series (Moderna) 05/07/2020,04/02/2020 Covid-19 Mrna, Lnp-s, No Pre serve, Booster (Moderna) 01/19/2021 Covid-19, Mrna, Lnp-s, Pf, B ivalent, 50 Mcg, IM, 12 yrs and above (Moderna) 12/15/2021 Pneumococcal Conjugate Vacc, 13 Valent (Prevnar) 07/05/2014 Pneumococcal Polysaccharide PPV23 (Pneumovax) 10/13/2004 Seasonal Influenza, Quadrivalent, ID 12/22/2014 Seasonal Influenza, Quadriva lent, No Preserve, Adjuvanted, 65+ Yrs, IM 12/27/2020,11/12/2019 Seasonal Influenza, Quadriva lent, No Preserve, IM [...] Sign Reading Time Taken Comments Blood Pressure 122/78 08/15/2022 10:16 AM EDT Pulse 57 08/15/2022 10:16 AM EDT Temperature 37.1 C (98.8 F) 08/15/2022 10:16 AM E DT Respiratory Rate 16 08/15/2022 10:16 AM EDT Oxygen Saturation 97% 08/15/2022 10:16 AM EDT Inhaled Oxygen Concentration - - Weight 88.1 kg (194 lb 3.2 oz) 08/15/2022 10:16 AM EDT Height - - Body Mass Index 32.57 02/12/2022 1:47 PM EST documented in this encounter Progress Notes * Hamilton Alberto MD - 08/15/2022 10:37 AM EDT Chief Complaint Patient presents with Re-Check 6 month return. No concerns at this time SUBJECTIVE: Carolyn Wall is a 82 year old female with PMH as below who presents for Follow up HTN, lipids, thyroid nodule. No cp, sob, pederson. Very active at home, mood is good. Sees cardiology today. 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 cholecalciferol, VIT D3, (VITAMIN D3) 1000 UNITS Tablet Take 1 Tablet by mouth in the morning. Metoprolol Succinate ER 50 MG Oral Tablet Extended Release 24 Hour (toPROL XL) take 1 tablet bymouth once daily 90 Tablet 3 Atorvastatin Calcium 20 MG Oral Tablet (Lipitor) Take by mouth 1 Tablet in the morning. 90 Tablet 3 hydroCHLOROthiazide 25 MG Oral Tablet (Hydrodiuril) take 1 tablet by mouth once daily 90 Tablet3 Losartan Potassium 50 MG Oral Tablet (Cozaar) take 1 tablet by mouth daily 90 Tablet 2 Ibuprofen 200 MG Oral Capsule Take 400 mg by mouth every evening. Takes two in am and two in the evening 30 Cap 0 No current facility-administered medications for this visit. Review of patient's allergies indicates: No Known Allergies Health Maintenance Due Topic Date Due DXA Scan 01/24/2017 Depression Screening, Annual for Pts 12 and Over 01/13/2021 COLONOSCOPY-EVERY 3 YRS AGES 18-100 10/26/2022 ROS: CONSTITUTIONAL: No change in weight, No weakness and No fevers, sweats, or chills EYE: No recent significant change in vision, No eye pain, redness, discharge and No diplopia EARS: No ear pain, No drainage, No tinnitus or vertigo and No recent change in hearing PULMONARY: No cough, sputum, or hemoptysis, No wheezing, No rales, No shortness of breath and No recent change in breathing CARDIOVASCULAR: No chest pain, No shortness of breath, No dyspnea on exertion, No orthopnea, No paroxysmal nocturnal dyspnea, No edema, No palpitations and No syncope GASTROINTESTINAL: No abdominal pain, No change in bowel habits, No significant heartburn, No significant change in appetite, No nausea, vomiting, diarrhea, or constipation, No hematemesis, No blood in stools or black tarry stools, No abdominal bloating or early satiety and No dysphagia SKIN/INTEGUMENTARY: No edema, No rash and No itching PSYCHIATRIC: No depression, No anxiety and No psychosis SLEEP: No sleep disorders ALL OTHER SYSTEMS NEGATIVE I reviewed social, PMH, PSH, and family history and updated where needed. Social History Socioeconomic History Marital status: Spouse name: Dionte Number of children: 5 Years of education: 16 Highest education level: Not on file Occupational History Occupation: retired Tobacco Use Smoking status: Never Passive exposure: Yes Smokeless tobacco: Never Tobacco comments: passive smoking exposure from cigars Substance and Sexual Activity Alcohol use: Not Currently Comment: occ. Drug use: Never Sexual activity: Yes Partners: Male Other Topics Concern Service No Blood Transfusions No Caffeine Concern No Occupational Exposure No Hobby Hazards No Sleep Concern No Stress Concern No Weight Concern Yes Special Diet No Back Care No Exercise Yes Comment: walks daily Bike Helmet No Seat Belt Yes Self-Exams No Social History Narrative Not on file Social Determinants of Health Financial Resource Strain: Not on file Food Insecurity: Not on file Transportation Needs: Not on file Physical Activity: Not on file Stress: Not on file Social Connections: Not on file Intimate Partner Violence: Not on file Housing Stability: Not on file Past Medical History: Diagnosis Date Benign neoplasm of colon 07/10/2012 COLONOSCOPY FLEXIBLE PROXIMAL DIAGNOSTIC performed by Ivory Myrick DO at [facility],ADENOMATOUS POLYPS REPEAT COLONOSCOPY IN 5 YEARS Dyslipidemia, goal LDL below 160 Hypercholesterolemia Dyslipidemia, goal LDL below 160 02/15/2009 Per Lipid Taxonomy. Fam hx-cardiovas dis NEC Migraine without aura Osteoporosis 2001 Osteoporosis, completed 5 years of fosamax in 2006 Past Surgical History: Procedure Laterality Date OTHER repair of trigger finger on right hand CATARACT SURGERY,COMPLEX Left 05/2021 DELIVERY Delivery Only DELIVERY 1974, 1975 COLONOSCOPY, DIAGNOSTIC (RECTUM) 05/22/2007 melanosis, hemorrhoids, repeat 2012, Dr Horton COLONOSCOPY, DIAGNOSTIC (RECTUM) 07/10/2012 COLONOSCOPY FLEXIBLE PROXIMAL DIAGNOSTIC performed by Ivory Myrick DO at [facility],ADENOMATOUS POLYPS REPEAT COLONOSCOPY IN 5 YEARS COLONOSCOPY, DIAGNOSTIC (RECTUM) 10/27/2019 adenomatous polyp, melanosis, repeat 3 yrs / [facility] COLONOSCOPY, REMOVE LESION 10/10/2003 repeat 3 years COLORECTAL CANCER SCREEN;W/FLE 11/22/1998 hemorrhoids COLORECTAL CANCER SCREEN;W/FLE 07/28/2003 EGD, FLEXIBLE, DIAGNOSTIC 10/27/2019 gastritis / [facility] KNEE ARTHROSCOPY, DIAGNOSTIC 03/11/2012 Dr Alex LIGATE/CUT OVIDUCT(S) Tubal Ligation MAMMOGRAM - BILATERAL 06/12/2002 birad code 2 MAMMOGRAM - BILATERAL 09/03/2003 birad code 1 MAMMOGRAM - BILATERAL 01/15/2005 birad code 2 Family History Problem Relation Age of Onset Musculo-skeletal Disorder Father OA Heart Disorder Mother CAD CHF age 73 Heart Disorder Sister Heart Disorder Sister Heart Disorder Brother OBJECTIVE: PHYSICAL EXAM: BP 122/78 | Pulse 57 | Temp 37.1 C (98.8 F) (Tympanic) | Resp 16 | Wt 88.1 kg (194 lb 3.2 oz) |SpO2 97% | BMI 32.57 kg/m | BSA 2.01 m General: alert, healthy and no distress Head: Normocephalic, No masses, lesions or abnormalities Eye Exam: conjunctiva are pink and non-injected, sclera clear Ears: External ears normal, Canals clear, TM's Normal Heart: regular rate & rhythm, no murmur, no gallops, PMI non-displaced, S-1 normal and S-2 normal Lungs: normal respiratory rate and rhythm, lungs clear to auscultation Psych: normal affect, no flight of ideas or tangential thought, good eye contact, no pressured speech ASSESSMENT: I10 HTN, goal below 140/90 (primary encounter diagnosis) I44.7 LBBB (left bundle branch block) E78.5 Dyslipidemia, goal LDL below 160 E21.0 Hyperparathyroidism, primary (HCC) I71.20 Thoracic aortic aneurysm without rupture, unspecified part (HCC) H35.3232 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) E04.1 Thyroid nodule Z86.010 History of colon polyps PLAN: HTN, goal below 140/90 (Primary) - COMPREHENSIVE METABOLIC PANEL; Future; Expected date: 08/15/2022 - LIPID PANEL WITH DIRECT LDL IF TG IS HIGH; Future; Expected date: 08/15/2022 Cont hctz, losartan, metoprolol LBBB (left bundle branch block) Sees cardiology today No symptoms Dyslipidemia, goal LDL below 160 - COMPREHENSIVE METABOLIC PANEL; Future; Expected date: 08/15/2022 - LIPID PANEL WITH DIRECT LDL IF TG IS HIGH; Future; Expected date: 08/15/2022 Cont med Hyperparathyroidism, primary (HCC) - PTH; Future; Expected date: 08/15/2022 - 25-HYDROXY VITAMIN D; Future; Expected date: 08/15/2022 Declines endocrine Declines dexa Thoracic aortic aneurysm without rupture, unspecified part (HCC) Sees cardiology Declined further imaging 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 | For: Labs Today Hamilton Alberto MD documented in this encounter Nursing Notes * Tiffany Carbone LPN - 08/15/2022 10:16 AM EDT Chief Complaint Patient presents with Re-Check 6 month return. No concerns at this time documented in this encounter Miscellaneous Notes * Addendum Note - Hamilton Alberto MD - 08/19/2022 1:36 PM EDTAddended by: HAMILTON ALBERTO on: 08/19/2022 01:36 PM Modules accepted: Orders documented in this encounter Plan of Treatment Upcoming Encounters Date Type Specialty Care Team Description 03/21/2023 Office Visit Internal Medicine Hamilton Alberto MD [address] [facility] [place] [address] Scheduled Orders Name Type Priority Associated Diagnoses Orde r Schedule BASIC METABOLIC PANEL Lab Routine Hypercalcemia Expected: 09/18/2022 (Approximate), Expires: 08/20/2023 Scheduled Procedures Name Priority Associated Diagnoses Date/Ti me COLONOSCOPY FLEXIBLE PROXIMAL DIAGNOSTIC Recall History of colon polyps Scheduled Referrals Name Type Priority Associated Diagnoses Orde r Schedule COLONOSCOPY, GI REFERRAL OP Referral Within 30 days (routine) History of colon polyps Ordered: 08/15/2022 Health Maintenance Due Date Last Done Comments DXA Scan 01/24/2017 01/24/2015, 01/09, 01/05/2011, Additional history exists COVID-19 Vaccine (5 - Moderna series) 04/17/2022 12/15/2021, 01/19/2021, 05/07/2020, Additional history exists COLONOSCOPY-EVERY 3 YRS AGES 18-100 10/26/2022 10/27/2019, 07/10/2012, 07/10/2012, Additional history exists Influenza Vaccine (FLU shot) (Season Ended) 2022 12/27/2020, 11/12/2019, 11/09/2018, Additional history exists Depression Screening, Annual for Pts 12 and Over 08/16/2023 08/15/2022 GFR 08/16/2023 08/15/2022, 12/0 07/2021, 08/02/2021, Additional history exists DTaP,Tdap,and Td Vaccines (2 [...] D LEVEL ONCE IN A LIFETIME-USE SMARTSET# [id number] Completed 08/15/2022, 02/12/2022, 08/02/2021, Additional history exists [...] Not on filedocumented as of this encounter Results * 25-HYDROXY VITAMIN D (08/15/2022 2:24 PM EDT) 25-Hydroxy Vitamin D 51 >19 ng/mL 08/16/2022 2:10 AM EDT [facility] Blood Venous blood specimen / Unknown Venipuncture / Unknown 08/15/2022 2:24 PM EDT 08/15/2022 2:24 PM EDT Narrative [facility] - 08/16/2022 2:10 AM EDT Deficient: <20 ng/mL Insufficient: 20-29 ng/mL Recommended/Optimum:30-50 ng/mL Vitamin D intoxication is rare. If suspicious of Vitamin D toxicity, evaluation of serum Calcium and PTH is recommended. Hamilton Alberto MD LAB BLOOD ORDER[facility] BLES [facility] [address] [place] [address] * PTH (08/15/2022 2:24 PM EDT) PTH 45 15 - 65 pg/mL 08/16/2022 2:10 AM EDT [facility] Blood Venous blood specimen / Unknown Venipuncture / Unknown 08/15/2022 2:24 PM EDT 08/15/2022 2:24 PM EDT Hamilton Alberto MD LAB BLOOD ORDERA BLES [facility] [address] [place] [address] * LIPID PANEL WITH DIRECT LDL IF TG IS HIGH (08/15/2022 2:24 PM EDT) Triglycerides 85 <=174 mg/dL 08/16/2022 1:32 AM EDT [facility] Comment: Triglyceride Reference Ranges (mg/dL): <150 Acceptable 150-174 Borderline high 175-499 High >=500 Very high Cholesterol 178 <200 mg/dL 08/16/2022 1:32 AM EDT [facility] Comment: Total Cholesterol Reference Ranges (mg/dL): <200 Desirable 200-239 Borderline high >=240 High HDL Cholesterol 71 >49 mg/dL 1:32 AM EDT [facility] Comment: HDL Cholesterol Reference Ranges (mg/dL): >=60 High (Desirable) <50 Low (Undesirable) For Females <40 Low (Undesirable) For Males Non-HDL Cholesterol 107 <=159 mg/dL 08/16/2022 1:32 AM EDT [facility] Comment: Non-HDL Cholesterol Reference Range (mg/dL): <100 Target level for high risk ASCVD patient <130 Optimal for general population 130-159 Near optimal for general population 160-189 Borderline High 190-219 High >=220 Very High LDL Cholesterol 90 <=129 mg/dL 08/16/2022 1:32 AM EDT [facility] Comment: LDL Cholesterol Reference Ranges (mg/dL): <70 Target level for high risk ASCVD patient <100 Optimal for general population 100-129 Near optimal for general population 130-159 Borderline high 160-189 High >=190 Very high Blood Venous blood specimen / Unknown Venipuncture / Unknown 08/15/2022 2:24 PM EDT 08/15/2022 2:24 PM EDT Hamilton Alberto MD LAB BLOOD ORDERA BLES [facility] [address] [place] [address] * (ABNORMAL) COMPREHENSIVE METABOLIC PANEL (08/15/2022 2:24 PM EDT) BUN 16 6 - 20 mg/dL 08/15/2022 3:43 PM EDT [facility]10 Creatinine 0.9 0.5 - 1.0 mg/dL 08/15/2022 3:43 PM EDT [facility] [place] [facility] Estimated Glomerular Filtration Rate 66 >=60 mL/min 08/15/2022 3:43 PM EDT [facility] [place] [facility]10 Comment:eGFR is calculated b ased on the CKD-EPI 2020 equation Sodium 143 135 - 146 mmol/L 08/15/2022 3:43 PM EDT [facility] Potassium 3.6 3.5 - 5.1 mmol/L 08/15/2022 3:43 PM EDT [facility] [place] [facility] [facility] Chloride 101 98 - 107 mmol/L 08/15/2022 3:43 PM EDT [facility] [place] [facility] [facility] CO2 29 22 - 32 mmol/L 08/15/2022 3:43 PM EDT [facility] [place] [facility] Anion Gap 13 7 - 15 mmol/L 08/15/2022 3:43 PM EDT [facility] [place] [facility] [facility]10 Glucose 104 70 - 120 mg/dL 08/15/2022 3:43 PM EDT [facility] [place] [facility] [facility] Albumin 4.2 3.8 - 5.0 g/dL 08/15/2022 3:43 PM EDT [facility] [place] [facility] AST 35 10 - 35 U/L 08/15/2022 3:43 PM EDT [facility] [place] [facility] Comment:Result may be falsel y elevated due to hemolysis. Alkaline Phosphatase 99 35 - 130 U/L 08/15/2022 3:43 PM EDT [facility] [place] [facility] Bilirubin, Total 0.9 <=1.2 mg/dL 08/15/2022 3:43 PM EDT [facility] [place] [facility] Calcium 10.7(H) 8.4 - 10.2 mg/dL 08/15/2022 3:43 PM EDT [facility] Protein 6.8 6.0 - 8.3 g/dL 08/15/2022 3:43 PM EDT [facility] [place] [facility]10 ALT 24 10 - 35 U/L 08/15/2022 3:43 PM EDT [facility] Blood Venous blood specimen / Unknown Venipuncture / Unknown 08/15/2022 2:24 PM EDT 08/15/2022 2:24 PM EDT Hamilton Alberto MD LAB BLOOD [facility] [address] [place] [address] documented in this encounter Visit Diagnoses Diagnosis HTN, goal below 140/90- Primary Unspecified essential hypertension LBBB (left bundle branch block) Other left bundle branch block Dyslipidemia, goal LDL below 160 Other and unspecified hyperlipidemia Hyperparathyroidism, primary (HCC) Primary hyperparathyroidism Thoracic aortic aneurysm without rupture, unspecified part (HCC) 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
--- OUTSIDE RECORDS SUMMARY | 2023-02-09 08:50 | External Medical Summary | Summary of Care ---
Author Name Unknown Organization [facility] Address [address] [facility] [place] [address] Phone [phone] Care Team Providers Care Piece Goods Packer Name Role Phone Hamilton Graham MD Primary Care Provider + Encounter Details Date Type Department Care Team Description 12/20/2022 Result Scan Unspecified Department Ho Tapia MD [address] [place] [address] <No scans attached> Allergies No known active allergiesdocumented as of this encounter (statuses as of 12/21/2022) Medications Medication Sig Dispensed Refills Start Date [...] 08/17/2019 Active hydroCHLOROthiazide 25 MG Oral Tablet (Hydrodiuril)Indicati [...] as of this encounter (statuses as of 12/21/2022) Active Problems Problem Noted Date Exudative age-related [...] as of this encounter (statuses as of 12/21/2022) Resolved Problems Problem Noted Date Resolved Date No advance directive on file 11/01/200504/2017 Overview: =no BENIGN HYPERTENSION 07/09/2001 01/14/2009 Overview: Modified per HTN Taxonomy. Osteoporosis 01/16/2008 PURE HYPERCHOLESTEROLEM 02/16/20 09 Overview: Per Lipid Taxonomy. Family history of other cardiovascular diseases 03/12/2017 documented as of this encounter (statuses as of 12/21/2022) Immunizations Name Administration Dates Next Due COVID-19 [...] Visit Internal Medicine Kaylee Diaz MD [address] [facility] [place] [address] 03/21/2023 Office Visit Internal Medicine Hamilton Graham MD [address] [facility] [place] [address] Scheduled Procedures Name Priority Associated Diagnoses Date/Ti [...] D LEVEL ONCE IN A LIFETIME-USE SMARTSET# [id number] Completed 08/15/2022, 02/12/2022, 08/02/2021, Additional history exists [...] Procedure Name Priority Date/Time Associated Diagnosis Comments ECHOCARDIOLOGY SCANNED RESULT 12/20/2022 documented in this encounter Results * ECHOCARDIOLOGY SCANNED RESULT (12/20/2022) 12/20/2022 Ho Tapia MD ECHOCARDIOLOGY documented in this encounter Care Teams Piece Goods Packer Relationship Specialty Start Date End Date Hamilton Graham MD [address] [place] [id number] PCP - General Internal Medicine 07/18/15 documented as of this encounter
--- OUTSIDE RECORDS SUMMARY | 2023-02-09 08:50 | External Medical Summary ---
Author Name Unknown Address Unknown Organization [id number]:[facility]ATORY [facility] - [address] [place] [address] Laboratory Report Ordering Provider Test Date Status REMY SARGENT 08/15/2022 14:24:25 Final Deficient: <20 ng/mL
Ins ufficient: 20-29 ng/mL
Recommended/Optimum:30-50 ng/mL

Vitamin D intoxication is rare. If suspicious of Vitamin D toxicity, evaluation of serum Calcium and PTH is recommended. Observation Date Value Abnormality Reference (Units ) Status 25-OH Vitamin D total 08/15/2022 14:24:25 51 >19 (ng/mL) Final Performing Location LAB[facility]ATORY [facility] - [address] [place] [address]
--- OUTSIDE RECORDS SUMMARY | 2023-02-09 08:50 | External Medical Summary | Summary of Care ---
Author Name Unknown Organization [facility] Address [address] [place] [address] Phone [phone] Care Team Providers Care Framing And Hanging Name Role Phone Hamilton Ablerto MD Primary Care Provider + Reason for Visit * Reason Comments eRx-Medication Refill Encounter Details Date Type Department Care Team Description 08/24/2022 Refill General Internal Medicine [facility] [place] [address] [facility] [place] [address] Hamilton Alberto MD [address] [place] [address] HTN, goal below 140/90 Allergies No known active allergiesdocumented as of this encounter (statuses as of 08/25/2022) Medications Medication Sig Dispensed Refills Start Date [...] mouth in the morning. 0 08/17/2019 Active Atorvastatin Calcium 20 MG Oral Tablet (Lipitor) Take by mouth 1 Tablet in the morning. 90 Tablet 3 11/24/2021 Active hydroCHLOROthiazid e 25 MG Oral Tablet [...] once daily 90 Tablet 3 08/25/2022 Active Metoprolol Succinate ER 50 MG Oral Tablet Extended Release 24 Hour (toPROL XL)Indications:HTN , goal below 140/90 take 1 tablet by mouth once daily 90 Tablet 3 08/19/2021 Discontinued documented as of this encounter (statuses as of 08/25/2022) Active Problems Problem Noted Date Exudative age-related [...] as of this encounter (statuses as of 08/25/2022) Resolved Problems Problem Noted Date Resolved Date No advance directive on file 11/01/200504/2017 Overview: =no BENIGN HYPERTENSION 07/09/2001 01/14/2009 Overview: Modified per HTN Taxonomy. Osteoporosis 01/16/2008 PURE HYPERCHOLESTEROLEM 02/16/20 09 Overview: Per Lipid Taxonomy. Family history of other cardiovascular diseases 03/12/2017 documented as of this encounter (statuses as of 08/25/2022) Immunizations Name Administration Dates Next Due COVID-19 [...] encounter Miscellaneous Notes * Telephone Encounter - Leslie Castro [facility] - 08/25/2022 9:58 AM EDTSigned Prescriptions: Disp Refills Metoprolol Succinate ER 50 MG Oral Tablet *90 Tab*3 Sig: take 1 tablet by mouth once dailyAuthorizing Provider: HAMILTON ALBERTO User: LESLIE CASTRO documented in this encounter Plan of Treatment Upcoming Encounters Date Type Specialty Care Team Description 03/21/2023 Office Visit Internal Medicine Hamilton Alberto MD [address] [place] [address] Scheduled Procedures Name Priority Associated Diagnoses Date/Ti [...] and Over 08/16/2023 08/15/2022 GFR 08/16/2023 08/15/2022, 1207/2021, 08/02/2021, Additional history exists DTaP,Tdap,and Td Vaccines (2 - Td or Tdap) 07/05/2024 07/05/2014, 02/06/2010 Albumin/Creatinine Ratio 02/12/2025 02/12/2022 Pneumococcal Vaccine: 65+ Years Completed 07/05/2014, 10/13/2004 *BISPHONATE OR OTHER ACCEPTABLE MEDICATION NEEDED FOR OSTEOPOROSIS (REFER TO SMARTSET #1146) Addressed 07/25/2016 (Declined) Overridden w ith the intention of not completing the topic Zoster Vaccines Completed 05/18/2018, 11/09, 12/23/2010 COVID-19 Vaccine Completed 12/15/2021, 01/2021, 05/07/2020, Additional history exists VITAMIN D LEVEL ONCE IN A LIFETIME-USE SMARTSET# [id number] Completed 08/15/2022, 02/12/2022, 08/02/2021, Additional history exists [...] as of this encounter Visit Diagnoses Diagnosis HTN, goal below 140/90 Unspecified essential hypertension documented in this encounter Care Teams Framing And Hanging Relationship Specialty Start Date End Date Hamilton Alberto MD [address] [place] [address], [place] [address] PCP - General Internal Medicine 07/18/15 documented as of this encounter
--- OUTSIDE RECORDS SUMMARY | 2023-02-09 08:50 | External Medical Summary | Summary of Care ---
Author Name Unknown Organization [facility] Address [address] [place] [address] Phone [phone] Care Team Providers Care Body Welder Name Role Phone Hamilton Graham MD Primary Care Provider + Reason for Visit * Reason Comments Follow Up * Evaluate & Treat - Unlimited Visits (Within 10 days (routine)) - Closed Specialty Diagnoses / Procedures Referred By Contedna t Referred To Contact Cardiovascular Medicine / Cardiology Diagnoses HTN, goal below 140/90 Thoracic aortic aneurysm without rupture, unspecified part (HCC) Hamilton Graham MD [address] [place] [address] Referral ID Status Reason Start Date Expiration Date V isits Requested Visits Authorized [id number] Closed Specialty Services Required 02/12/[phone] Encounter Details Date Type Department Care Team Description 08/15/2022 Office Visit Cardiology, [facility] [address] [place] [address] Jaylen Ponce DO [address] [place] [address] Aneurysm of ascending aorta without rupture (HCC)*; LBBB (left bundle branch block); HTN, goal below 140/90; Dyslipidemia, goal LDL below 100 Allergies No known active allergiesdocumented as of this encounter (statuses as of 08/15/2022) Medications Medication Sig Dispensed Refills Start Date [...] as of this encounter (statuses as of 08/15/2022) Active Problems Problem Noted Date Exudative age-related [...] as of this encounter (statuses as of 08/15/2022) Resolved Problems Problem Noted Date Resolved Date No advance directive on file 11/01/200504/2017 Overview: =no BENIGN HYPERTENSION 07/09/2001 01/14/2009 Overview: Modified per HTN Taxonomy. Osteoporosis 01/16/2008 PURE HYPERCHOLESTEROLEM 02/16/20 09 Overview: Per Lipid Taxonomy. Family history of other cardiovascular diseases 03/12/2017 documented as of this encounter (statuses as of 08/15/2022) Immunizations Name Administration Dates Next Due COVID-19 [...] Influenza, Split, I IV3, With Preserve, Inj 12/20/2013,12/23/2012,12/05/2010,10/0 03/2009,12/02/2008,01/06/2008,12/11/19 07,01/09/2006 Seasonal Influenza, Trivalen t, Adjuvanted, [...] Yes Smokeless Tobacco: Never Tobacco Cessation:Counseling Given: Yes Comments:passive smoking exposure from cigars Alcohol Use [...] Sign Reading Time Taken Comments Blood Pressure 124/78 08/15/2022 1:32 PM EDT Pulse 80 08/15/2022 1:32 PM EDT Temperature - - Respiratory Rate 14 08/15/2022 1:32 PM EDT Oxygen Saturation - - Inhaled Oxygen Concentration - - Weight 87.1 kg (192 lb) 08/15/2022 1:32 PM EDT Height - - Body Mass Index 32.2 02/12/2022 1:47 PM EST documented in this encounter Progress Notes * Jaylen Ponce, - 08/15/2022 2:02 PM EDT History of Present Illness: 82 year old female presents for follow-up of ascending aortic aneurysm,hypertension, dyslipidemia, and transient/rate related left bundle branch block. Lost to follow-up since 2020. During most recent office visit with Cardiothoracic surgery, continued observation recommended. Patient is not interested in invasive procedures at this time. Denies chest pain or unusual shortness of breath. Tolerating medications listed below. No interim hospitalizations. Blood pressure well controlled. Offers no concerns/complaints. ECG: Sinus rhythm with first-degree AV block, left axis deviation. Cardiac history copied from progress note dated 03/2020: Left bundle branch block noted during hospitalization for acute influenza. Subsequently, patient underwent repeat limited echocardiogram and Lexiscan nuclear stress test. Lexiscan nuclear stress test negative for inducible ischemia. Repeat echo cardiogram demonstrated ascending aortic aneurysm. She was referred to Cardiothoracic surgery. CT of the chest demonstrated 5.2 cm ascending aortic aneurysm in 2018 and 5.0cm in 2019. Continued observation recommended. Lexiscan nuclear stress test report 04/2017: Myocardial perfusion imaging is normal. Overall left ventricular systolic function was normal without regional wall motion abnormalities. The left ventricular ejection fraction was 64%. There are no prior studies available for comparison. Limited 2D echocardiogram report 04/2017: Pericardial effusion [...] Cardiac Studies: 2D transthoracic ECHO performed at [facility] 2016 demonstrates preserved LVsystolic function, [...] performed [facility] Iv[facility],ADENOMATOUS POLYPS REPEAT COLONOSCOPY IN 5 YEARS COLONOSCOPY, DIAGNOSTIC (RECTUM) 10/27/2019 adenomatous polyp, melanosis, repeat 3 yrs / [facility] COLONOSCOPY, REMOVE LESION 10/10/2003 repeat 3 years COLORECTAL CANCER SCREEN;W/FLE 11/22/1998 hemorrhoids COLORECTAL CANCER SCREEN;W/FLE 07/28/2003 EGD, FLEXIBLE, DIAGNOSTIC 10/27/2019 gastritis / [facility] KNEE ARTHROSCOPY, DIAGNOSTIC 03/11/2012 Dr Alex [...] file Gets together: Not on file Attends [employer] service: Not on file Active member of [...] Tab by mouth 2 times a day. Ibuprofen 200 MG Oral Capsule Take 2 Capsules by mouth every evening. Takes two in am and two in the evening 30 Cap 0 cholecalciferol, VIT D3, (VITAMIN D3) 1000 UNITS [...] tablet by mouth daily 90 Tablet 2 No current facility-administered medications for this visit. OBJECTIVE/PHYSICAL EXAMINATION: BP 124/78 | Pulse 80 | Resp 14 | Wt 87.1 kg (192 lb) | BMI 32.20 kg/m | BSA 1.99 m General: NAD, AAO x3, well nourished. [...] tibial=2/4. Neuro: No focal deficits. IMPRESSION: 1. 5.0 - 5.4cm ascending aortic aneurysm -stable diameter per CT 07/2021 -Continued observation recommended 2. Hypertension - controlled 3. Intermittent Left bundle branch block 4. Dyslipidemia - uncontrolled 5. Anxiety disorder RECOMMENDATIONS/PLAN: Update fasting lipid panel and comprehensive metabolic panel as ordered. Natural history and pathophysiology of thoracic aneurysm discussed. Conservative management/observation recommended. Patient is not interested in invasive procedures/surgery. Will discontinue surveillance at this time. Encouraged to remain active. Recommend regular aerobic exercise 30-40 minutes/ day, 4 days per weekas tolerated. Lifting restriction less than 40 lb. All questions answered to patient's satisfaction. Follow Up: Return in about 1 year (around 08/16/2023). Jaylen Ponce DO, [facility] Associate Cardiology - [facility] documented in this encounter Nursing Notes * Ella Chin LPN - 08/15/2022 1:31 PM EDT Examination Room: Name: Carolyn Wall Date of : 1940 Reason for Visit: Follow up Problems/Concerns: denies Interim Hosp(s): denies Chest Pain/SOB: denies [facility] Discussed: Not applicable MyChart Discussed: ALREADY ACTIVE Patient was instructed to not [...] Description 03/21/2023 Office Visit Internal Medicine Hamilton Graham MD [address] [place] [address], [place] [address] Scheduled Orders Name Type Priority Associated Diagnoses Orde r Schedule EKG EKG Routine LBBB (left bundle branch block) Aneurysm of ascending aorta without rupture (HCC) HTN, goal below 140/90 Ordered: 08/15/2022 Scheduled Procedures Name Priority Associated Diagnoses Date/Ti me COLONOSCOPY FLEXIBLE PROXIMAL DIAGNOSTIC Recall History of colon polyps Health Maintenance Due Date Last Done Comments DXA Scan 01/24/2017 01/24/2015, 01/09, 01/05/2011, Additional history exists COLONOSCOPY-EVERY 3 YRS AGES 18-100 10/26/2022 10/27/2019, 07/10/2012, 07/10/2012, Additional history exists Influenza Vaccine (FLU shot) (Season Ended) 2022 12/27/2020, 11/12/2019, 11/09/2018, Additional history exists GFR 02/12/2023 02/12/2022, 07/10, 07/20/2021, Additional history exists Depression Screening, Annual for Pts 12 and Over 08/16/2023 08/15/2022 DTaP,Tdap,and Td Vaccines (2 - Td or [...] D LEVEL ONCE IN A LIFETIME-USE SMARTSET# [id number] Completed 02/12/2022, 08/02/2021, 10/14/2020, Additional history exists GARDASIL-HPV IMMUNIZATION SERIES Aged [...] as of this encounter Visit Diagnoses Diagnosis Aneurysm of ascending aorta without rupture (HCC)- Primary LBBB (left bundle branch block) Other left bundle branch block HTN, goal below 140/90 Unspecified essential hypertension Dyslipidemia, goal LDL below 100 Other and unspecified hyperlipidemia documented in this encounter Care Teams Body Welder Relationship Specialty Start Date End Date Hamilton Graham MD [address] [facility], [place] [id number] PCP - General Internal Medicine 07/18/15 documented as of this encounter"
--- OUTSIDE RECORDS SUMMARY | 2023-02-09 08:50 | External Medical Summary | Summary of Care ---
Author Name Unknown Organization [facility] Address [address] [facility] [address] Phone [phone] Care Team Providers Care Software Build Engineer Name Role Phone Hamilton Graham MD Primary Care Provider + Reason for Visit * Reason Onset Date Comments Appointment 12/04/2022 Encounter Details Date Type Department Care Team Description 12/04/2022 Telephone Cardiology, [facility] [address] [place] [address] Jaylen Ponce DO [address] [place] [address] Appointment Allergies No known active allergiesdocumented as of this encounter (statuses as of 12/04/2022) Medications Medication Sig Dispensed Refills Start Date [...] once daily 90 Tablet 3 08/25/2022 Active documented as of this encounter (statuses as of 12/04/2022) Active Problems Problem Noted Date Exudative age-related [...] as of this encounter (statuses as of 12/04/2022) Resolved Problems Problem Noted Date Resolved Date No advance directive on file 11/01/200504/2017 Overview: =no BENIGN HYPERTENSION 07/09/2001 01/14/2009 Overview: Modified per HTN Taxonomy. Osteoporosis 01/16/2008 PURE HYPERCHOLESTEROLEM 02/16/20 09 Overview: Per Lipid Taxonomy. Family history of other cardiovascular diseases 03/12/2017 documented as of this encounter (statuses as of 12/04/2022) Immunizations Name Administration Dates Next Due COVID-19 [...] encounter Miscellaneous Notes * Telephone Encounter - REID Newby - 12/04/2022 9:28 AM EDT Pt already on recall list for August [address] Ponce. We do not have any schedules that for out at this time. * Telephone Encounter - Purnima Castaneda LPN - 12/04/2022 9:25 AM EDT Patient was last seen in August. She needs a yearly follow up scheduled. Can you reach out to her with an appt. Thank you. documented in this encounter Plan of Treatment Upcoming Encounters Date Type Specialty Care Team Description 03/21/2023 Office Visit Internal Medicine Hamilton Graham MD [address] [place] [address], [place] [address] Scheduled Procedures Name Priority Associated Diagnoses Date/Ti [...] D LEVEL ONCE IN A LIFETIME-USE SMARTSET# [id number] Completed 08/15/2022, 02/12/2022, 08/02/2021, Additional history exists [...] Not on filedocumented as of this encounter Care Teams Software Build Engineer Relationship Specialty Start Date End Date Hamilton Graham MD [address] [place] [address] PCP - General Internal Medicine 07/18/15 documented as of this encounter
--- OUTSIDE RECORDS SUMMARY | 2023-02-09 08:50 | External Medical Summary | Summary of Care ---
Author Name Unknown Organization [facility] Address [address] [place] [address] Phone [phone] Care Team Providers Care Day Habilitation Specialist Name Role Phone Hamilton Graham MD Primary Care Provider + Encounter Details Date Type Department Care Team Description 12/21/2022 Orders Only [facility]iology, [facility] [place] [address] Ho Tapia MD [address] [place] [address] Allergies No known active allergiesdocumented as of [...] Visit Internal Medicine Kaylee Diaz MD 200 [place] [address] 03/21/2023 Office Visit Internal Medicine Hamilton Graham MD [address] [place] [address] Pending Results Name Type Priority Associated Diagnoses Date /Time XR CHEST 1 VIEW Medical Imaging Routine 12/09 Scheduled Procedures Name Priority Associated Diagnoses Date/Ti [...] D LEVEL ONCE IN A LIFETIME-USE SMARTSET# [id number] Completed 08/15/2022, 02/12/2022, 08/02/2021, Additional history exists [...] filedocumented as of this encounter Care Teams Day Habilitation Specialist Relationship Specialty Start Date End Date Hamilton Graham MD [address] [place] [address], [place] [address] PCP - General Internal Medicine 07/18/15 documented as of this encounter
--- OUTSIDE RECORDS SUMMARY | 2023-02-09 08:50 | External Medical Summary | Summary of Care ---
Author Name Unknown Organization [facility] Address [address] [place] [address] Phone [phone] Care Team Providers Care Occupational Therapy Teacher Name Role Phone Hamilton Graham MD Primary Care Provider + Reason for Visit * Reason Comments Outpatient Testing Encounter Details Date Type Department Care Team Description 09/18/2022 Laboratory Laboratory [facility] [address] [place] [address] [facility] 200 [facility] [place] [address] Hypercalcemia Allergies No known active allergiesdocumented as of this encounter (statuses as of 09/18/2022) Medications Medication Sig Dispensed Refills Start Date [...] as of this encounter (statuses as of 09/18/2022) Active Problems Problem Noted Date Exudative age-related [...] as of this encounter (statuses as of 09/18/2022) Resolved Problems Problem Noted Date Resolved Date No advance directive on file 11/01/200504/2017 Overview: =no BENIGN HYPERTENSION 07/09/2001 01/14/2009 Overview: Modified per HTN Taxonomy. Osteoporosis 01/16/2008 PURE HYPERCHOLESTEROLEM 02/16/20 09 Overview: Per Lipid Taxonomy. Family history of other cardiovascular diseases 03/12/2017 documented as of this encounter (statuses as of 09/18/2022) Immunizations Name Administration Dates Next Due COVID-19 [...] Visit Internal Medicine Hamilton Graham MD [address] [place] [address] Pending Results Name Type Priority Associated Diagnoses Date /Time BASIC METABOLIC PANEL Lab Routine Hypercalcemia 09/18/2022 10:16 AM EDT Scheduled Procedures Name Priority Associated [...] and Over 08/16/2023 08/15/2022 GFR 08/16/2023 08/15/2022, 12/07/2021, 08/02/2021, Additional history exists DTaP,Tdap,and Td Vaccines (2 - Td or Tdap) 07/05/2024 07/05/2014, 02/06/2010 Albumin/Creatinine Ratio 02/12/2025 02/12/2022 Pneumococcal Vaccine: 65+ Years Completed 07/05/2014, 10/13/2004 *BISPHONATE OR OTHER ACCEPTABLE MEDICATION NEEDED FOR OSTEOPOROSIS (REFER TO SMARTSET #4506) Addressed 07/25/2016 (Declined) Overridden w ith the intention of not completing the topic Zoster Vaccines Completed 05/18/2018, 11/09, 12/23/2010 COVID-19 Vaccine Completed 12/15/2021, 01/2021, 05/07/2020, Additional history exists VITAMIN D LEVEL ONCE IN A LIFETIME-USE SMARTSET# [id number] Completed 08/15/2022, 02/12/2022, 08/02/2021, Additional history exists [...] as of this encounter Visit Diagnoses Diagnosis Hypercalcemia documented in this encounter Care Teams Occupational Therapy Teacher Relationship Specialty Start Date End Date Hamilton Graham MD [address] [place] [address] PCP - General Internal Medicine 07/18/15 documented as of this encounter
--- OUTSIDE RECORDS SUMMARY | 2023-02-09 08:50 | External Medical Summary | Summary of Care ---
Author Name Unknown Organization [facility] Address [address] [place] [address] Phone [phone] Care Team Providers Care Linoleum Tile Layer Name Role Phone Hamilton Graham MD Primary Care Provider + Reason for Visit * Reason Onset Date Comments Test Results 08/29/2022 Encounter Details Date Type Department Care Team Description 08/29/2022 Telephone General Internal Medicine [facility] [address] [facility] [place] [id number] Hamilton Graham MD 200 [place] [address] Test Results Allergies No known active allergiesdocumented as of this encounter (statuses as of 08/29/2022) Medications Medication Sig Dispensed Refills Start Date [...] as of this encounter (statuses as of 08/29/2022) Active Problems Problem Noted Date Exudative age-related [...] as of this encounter (statuses as of 08/29/2022) Resolved Problems Problem Noted Date Resolved Date No advance directive on file 11/01/200504/2017 Overview: =no BENIGN HYPERTENSION 07/09/2001 01/14/2009 Overview: Modified per HTN Taxonomy. Osteoporosis 01/16/2008 PURE HYPERCHOLESTEROLEM 02/16/20 09 Overview: Per Lipid Taxonomy. Family history of other cardiovascular diseases 03/12/2017 documented as of this encounter (statuses as of 08/29/2022) Immunizations Name Administration Dates Next Due COVID-19 [...] encounter Miscellaneous Notes * Telephone Encounter - Opal Wilks LPN - 08/29/2022 3:41 PM EDT Patient notified of message below. Verbalized understanding. ----- Message from Hamilton Graham MD sent at 08/19/2022 1:36 PM EDT ----- Labs good except calcium high please no tums or calcium supplements, cut back slightly on calcium in diet (dairy) recheck 1 month to follow. Please stay hydrated. documented in this encounter Plan of Treatment Upcoming Encounters Date Type Specialty Care Team Description 03/21/2023 Office Visit Internal Medicine Hamilton Graham MD [address] [place] [address] Scheduled Procedures Name Priority Associated Diagnoses Date/Ti [...] D LEVEL ONCE IN A LIFETIME-USE SMARTSET# [id number] Completed 08/15/2022, 02/12/2022, 08/02/2021, Additional history exists [...] filedocumented as of this encounter Care Teams Linoleum Tile Layer Relationship Specialty Start Date End Date Hamilton Graham MD [address] [place] [address] [place] [address] PCP - General Internal Medicine 07/18/15 documented as of this encounter
--- OUTSIDE RECORDS SUMMARY | 2023-02-09 08:50 | External Medical Summary | Summary of Care ---
Author Name Unknown Organization [facility] Address [address] [place] [address] Phone [phone] Care Team Providers Care Excavator Backhoe Operator Name Role Phone Hamilton Graham MD Primary Care Provider + Reason for Visit * Reason Onset Date Comments Health Maintenance 12/04/2022 Encounter Details Date Type Department Care Team Description 12/04/2022 Telephone General Internal Medicine [facility] [place] [address] [facility] [place] [phone] Hamilton Graham MD 200 [place] [address] Health Maintenance Allergies No known active allergiesdocumented as of [...] encounter Miscellaneous Notes * Telephone Encounter - Purnima Castaneda LPN - 12/04/2022 9:20 AM EDT Care Gaps Comprehensive Care Outreach Last Office/Telemedicine Visit: 08/15/2022 (in office), Visit date not found (telemedicine) Next Office Visit: 03/21/2023 Hemoglobin AIC Results: No results found for: HEMOGLOBIN A1C Reviewed Health Maintenance below: Health Maintenance Topic Date Due DXA Scan 01/24/2017 COLONOSCOPY-EVERY 3 YRS AGES 18-100 10/26/2022 Influenza Vaccine (FLU shot) (1) 11/09/2022 Dexa declined Colon declined Flu getting elsewhere Care Gap Outreach Action Taken: Spoke to patient documented in this encounter Plan of Treatment Upcoming Encounters Date Type Specialty Care Team Description 03/21/2023 Office Visit Internal Medicine Hamilton Graham MD 200 [facility] [place] [address] Scheduled Procedures Name Priority Associated Diagnoses Date/Ti [...] D LEVEL ONCE IN A LIFETIME-USE SMARTSET# [id number] Completed 08/15/2022, 02/12/2022, 08/02/2021, Additional history exists [...] filedocumented as of this encounter Care Teams Excavator Backhoe Operator Relationship Specialty Start Date End Date Hamilton Graham MD 200 [place] [address] PCP - General Internal Medicine 07/18/15 documented as of this encounter
--- OUTSIDE RECORDS SUMMARY | 2023-02-09 08:50 | External Medical Summary | Summary of Care ---
Author Name Unknown Organization [facility] Address [address] [place] [address] Phone [phone] Care Team Providers Care Visiting Professor Name Role Phone Hamilton Graham MD Primary Care Provider + Reason for Visit * Reason Onset Date Comments Appointment 08/17/2022 colonoscopy Encounter Details Date Type Department Care Team Description 08/17/2022 Telephone General Internal Medicine [facility] [place] [address] [facility] [place] [address] Hamilton Graham MD [address] [facility] [place] [address] Appointment (colonoscopy) Allergies No known active allergiesdocumented as of this encounter (statuses as of 08/21/2022) Medications Medication Sig Dispensed Refills Start Date [...] as of this encounter (statuses as of 08/21/2022) Active Problems Problem Noted Date Exudative age-related [...] as of this encounter (statuses as of 08/21/2022) Resolved Problems Problem Noted Date Resolved Date No advance directive on file 11/01/200504/2017 Overview: =no BENIGN HYPERTENSION 07/09/2001 01/14/2009 Overview: Modified per HTN Taxonomy. Osteoporosis 01/16/2008 PURE HYPERCHOLESTEROLEM 02/16/20 09 Overview: Per Lipid Taxonomy. Family history of other cardiovascular diseases 03/12/2017 documented as of this encounter (statuses as of 08/21/2022) Immunizations Name Administration Dates Next Due COVID-19 [...] at Date Recorded Female 07/11/2018 9:49 AM EDT Job Start Date Occupation Industry Not on file Not on file Not on file documented as of this encounter Miscellaneous Notes * Telephone Encounter - REID Elias - 08/21/2022 10:21 AM EDT Called pt, no answer, no VM set up 08/21 * Telephone Encounter - REID Loredo - 08/17/2022 8:47 AM EDT Order placed 08/15, please advise on scheduling. If pt would like to schedule, a clinic appt is needed prior d/t age. * Telephone Encounter - REID Loredo - 08/17/2022 8:47 AM EDT OUTPATIENT REFERRAL REQUEST COLONOSCOPY, GI REFERRAL OP Name: Carolyn Wall Birthdate: 1940 Patient's Address: [address] [place] [phone] Home: Work: Cell: Patient Preference: Referral ID: [id number] Referred To: COLONOSCOPY, GI REFERRAL OP Copy Center Associate: Provider Specialty: Gastroenterology Priority: Within 30 days (routine) Visit Coverage: MEDICARE A AND B Primary Payor: MEDICARE Appointment Info: Date: Time: Referral Type: Ancillary Services [] Expiration Date: Number of Visits Requested: 999 Associated Diagnosis: History of colon polyps (Z86.010) Problem/Desired Service from Copy Center Associate: ALERT: Do not order for pediatric patients (18 years or younger). Cancel off screen and order PEDS GASTROENTEROLOGY CONSULT (Type: 1 visit only-Evaluate and Treat) The following Pt. Instructions are available: - Gastro Colonoscopy Prep Instructions [[id number]] - Gastro Colonoscopy Prep Instructions (Italian Version) [[id number]] Go to the Pt. Instructions section within [...] 2. Is the patient on Pradaxa? No Order Specific Questions: Referral Priority: Within 30 days (routine) documented in this encounter Plan of Treatment Upcoming Encounters Date Type Specialty Care Team Description 03/21/2023 Office Visit Internal Medicine Hamilton Graham MD [address] [facility] [place] [address] Scheduled Procedures Name Priority Associated Diagnoses [...] D LEVEL ONCE IN A LIFETIME-USE SMARTSET# [id number] Completed 08/15/2022, 02/12/2022, 08/02/2021, Additional history exists [...] filedocumented as of this encounter Care Teams Visiting Professor Relationship Specialty Start Date End Date Hamilton Graham MD [address] [place] [address], [place] [address] PCP - General Internal Medicine 07/18/15 documented as of this encounter
--- OUTSIDE RECORDS SUMMARY | 2023-02-09 08:50 | External Medical Summary ---
Author Name Unknown Address Unknown Organization K0G[facility] [address] [place] [address] Laboratory Report Ordering Provider Test Date Status REMY SARGENT 08/15/2022 14:24:25 Final Observation Date Value Abnormality Reference (Units ) Status BUN 08/15/2022 14:24:25 16 6-20 (mg/dL) Final Creatinine 08/15/2022 14:24:25 0.9 0.5-1.0 (mg/dL) Final Glomerular filtration rate/1.73 sq M.predicted [Volume Rate/Area] in Serum, Plasma or Blood by Creatinine-based formula (CKD-EPI) 08/15/2022 14:24:25 66 >=60 (mL/min) Final eGFR is calculated based on the CKD-EPI 2020 equation SODIUM 08/15/2022 14:24:25 143 135-146 (m mol/L) Final Potassium 08/15/2022 14:24:25 3.6 3.5-5.1 (m mol/L) Final Cl 08/15/2022 14:24:25 101 98-107 (mm ol/L) Final CO2 08/15/2022 14:24:25 29 22-32 (mmo l/L) Final Anion gap 08/15/2022 14:24:25 13 7-15 (mmol /L) Final Glucose 08/15/2022 14:24:25 104 70-120 (mg /dL) Final Albumin 08/15/2022 14:24:25 4.2 3.8-5.0 (g /dL) Final AST (Aspartate aminotransferase) 08/15/2022 14:24:25 35 10-35 (U/L) Final Result may be falsely elevat ed due to hemolysis. Alk Phos 08/15/2022 14:24:25 99 35-130 (U/ L) Final Bilirubin, Total 08/15/2022 14:24:25 0.9 <=1 .2 (mg/dL) Final Calcium 08/15/2022 14:24:25 10.7 Above high normal 8. 4-10.2 (mg/dL) Final Protein 08/15/2022 14:24:25 6.8 6.0-8.3 (g /dL) Final ALT (Alanine aminotransferase) 08/15/2022 14:24:25 24 10-35 (U/L) Scout vang Performing Location [facility] [address] [facility] [address]
--- OUTSIDE RECORDS SUMMARY | 2023-02-09 08:50 | External Medical Summary | Summary of Care ---
Author Name Unknown Organization [facility] Address [address] [facility] [address] Phone [phone] Care Team Providers Care Director Of Industrial Relations Name Role Phone Hamilton Graham MD Primary Care Provider + Reason for Visit * Reason Comments eRx-Medication Refill Encounter Details Date Type Department Care Team Description 12/17/2022 Refill Cardiology, [facility] [address] [place] [address] Jaylen Patel, [address] [place] [address] Allergies No known active allergiesdocumented as of this encounter (statuses as of 12/17/2022) Medications Medication Sig Dispensed Refills Start Date [...] the morning.. 90 Tablet 3 12/17/2022 Active Atorvastatin Calcium 20 MG Oral Tablet (Lipitor) Take by mouth 1 Tablet in the morning. 90 Tablet 3 11/24/2021 Discontinued documented as of this encounter (statuses as of 12/17/2022) Active Problems Problem Noted Date Exudative age-related [...] as of this encounter (statuses as of 12/17/2022) Resolved Problems Problem Noted Date Resolved Date No advance directive on file 11/01/200504/2017 Overview: =no BENIGN HYPERTENSION 07/09/2001 01/14/2009 Overview: Modified per HTN Taxonomy. Osteoporosis 01/16/2008 PURE HYPERCHOLESTEROLEM 02/16/20 09 Overview: Per Lipid Taxonomy. Family history of other cardiovascular diseases 03/12/2017 documented as of this encounter (statuses as of 12/17/2022) Immunizations Name Administration Dates Next Due COVID-19 [...] encounter Miscellaneous Notes * Telephone Encounter - Jaylen Patel DO - 12/17/2022 3:41 PM EDTSigned Prescriptions: Disp Refills Atorvastatin Calcium 20 MG Oral Tablet (Li*90 Tab*3 Sig: Take 1 Tablet by mouth in the morning. In the morning.. Authorizing Provider: JAYLEN PATEL * Telephone Encounter - Mendez Bain RN - 12/17/2022 2:11 PM EDTPending Prescriptions: Disp Refills Atorvastatin Calcium 20 MG Oral Tablet (Li*90 Tab*3 Sig: Take 1 Tablet by mouth in the morning. In the morning.. * Telephone Encounter - Mendez Bain RN - 12/17/2022 2:10 PM EDT Pending Prescriptions: Disp Refills Atorvastatin Calcium 20 MG Oral Tablet (L*90 Tab*3 Sig: Take 1 Tablet by mouth in the morning. In the morning.. Last Visit: 08/15/2022 (in office), Visit date not found (telemedicine) Next Visit: Visit date not found Last medication order date: 11/24/2021 Have you choosen a preferred pharm?? 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 Labs: Lab Results Component Value Date/Time CREATININE - [facility] 0.8 09/18/2022 10:16 AM CREATININE - [facility] 1.1 (H) 03/23/2020 02:55 PM CREATININE, RANDOM URINE - [facility] 47 02/12/2022 02:21 PM CREATININE, RANDOM URINE - [facility] 15 01/21/2007 11:35 AM CREATININE-OUTSIDE LAB 0.57 (A) 05/22/2018 12:00 AM Lab Results Component Value Date/Time POTASSIUM - [facility] 3.8 09/18/2022 10:16 AM POTASSIUM - [facility] 3.8 03/23/2020 02:55 PM POTASSIUM-OUTSIDE LAB 3.5 05/22/2018 12:00 AM Lab Results Component Value Date/Time TSH - [facility] 2.10 02/12/2022 02:12 PM TSH - [facility] 1.61 07/14/2019 11:00 AM Lab Results Component Value Date/Time LDL CHOLESTEROL (CALCULATED) - [facility] 90 08/15/2022 02:24 PM LDL CHOLESTEROL (CALCULATED) - [facility] 78 08/02/2021 07:54 AM LDL CHOLESTEROL (CALCULATED) - [facility] 113 07/14/2019 11:00 AM LDL CHOLESTEROL (CALCULATED) - [facility] 99 07/11/2018 10:46 AM LDL CHOLESTEROL (DIRECT MEASURE) - [facility] NOT APPLICABLE 07/14/2019 11:00 AM LDL CHOLESTEROL (DIRECT MEASURE) - [facility] NOT APPLICABLE 07/11/2018 10:46 AM LDL CHOLESTEROL (DIRECT MEASURE) - [facility] 170 (H) 07/05/2014 04:30 PM LDL CHOLESTEROL (DIRECT MEASURE) - [facility] 180 (H) 06/29/2013 02:37 PM Lab Results Component Value Date/Time ALT - [facility] 24 08/15/2022 02:24 PM ALT - [facility] 24 07/14/2019 11:00 AM Hemoglobin AIC Results: No results found for: HEMOGLOBIN A1C documented in this encounter Plan of Treatment Upcoming Encounters Date Type Specialty Care Team Description 03/21/2023 Office Visit Internal Medicine Hamilton Graham MD [address] [place] [address] Scheduled Procedures Name Priority Associated Diagnoses Date/Ti [...] D LEVEL ONCE IN A LIFETIME-USE SMARTSET# [id number] Completed 08/15/2022, 02/12/2022, 08/02/2021, Additional history exists [...] filedocumented as of this encounter Care Teams Director Of Industrial Relations Relationship Specialty Start Date End Date Hamilton Graham MD [address] [facility], [place] [id number] PCP - General Internal Medicine 07/18/15 documented as of this encounter
--- OUTSIDE RECORDS SUMMARY | 2023-02-09 08:50 | External Medical Summary | Summary of Care ---
Author Name Unknown Organization [facility] Address [address] [place] [address] Phone [phone] Care Team Providers Care Surgeon Chief Name Role Phone Hamilton Graham MD Primary Care Provider + Reason for Referral * Ancillary Services (Within 30 days (routine)) - Authorized Specialty Diagnoses / Procedures Referred By Contac t Referred To Contact Gastroenterology Diagnoses History of colon polyps Hamilton Graham MD [address] [place] [address] Referral ID Status Reason Start Date Expiration Date Visits Requested Visits Authorized [id number] Authorized Ancillary Services Required 08/15/2022 999 999 Question Answer Referral Priority Within 30 days (routine) Comments ALERT: Do not order for pediatric patients (18 years or younger). Cancel off screen and order PEDS GASTROENTEROLOGY CONSULT (Type: 1 visit only-Evaluate and Treat) The following Pt. Instructions are available: - Gastro Colonoscopy Prep Instructions [[id number]] - Gastro Colonoscopy Prep Instructions (Yoruba Version) [[id number]] Go to the Pt. 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 0 Active Ibuprofen 200 MG Oral Capsule Take 400 [...] 11/24/2021 Active hydroCHLOROthiazide 25 MG Oral Tablet (Hydrodiuril)Indicatio [...] in this encounter Progress Notes * Hamilton Graham MD - 08/15/2022 10:37 AM EDT Chief [...] COLONOSCOPY FLEXIBLE PROXIMAL DIAGNOSTIC performed by Ivory T Suvock, DO at [facility],ADENOMATOUS POLYPS REPEAT COLONOSCOPY IN 5 YEARS Dyslipidemia, [...] performed by Ivory Myrick DO at ENDOSCOPY [facility],ADENOMATOUS POLYPS REPEAT COLONOSCOPY IN 5 YEARS COLONOSCOPY, DIAGNOSTIC (RECTUM) 10/27/2019 adenomatous polyp, melanosis, repeat 3 yrs / [facility] COLONOSCOPY, REMOVE LESION 10/10/2003 repeat 3 years COLORECTAL CANCER SCREEN;W/FLE 11/22/1998 hemorrhoids COLORECTAL CANCER SCREEN;W/FLE 07/28/2003 EGD, FLEXIBLE, DIAGNOSTIC 10/27/2019 [facility] / [facility] KNEE ARTHROSCOPY, DIAGNOSTIC 03/11/2012 Dr Alex [...] Labs Today. | For: Labs Today Hamilton Graham MD documented in this encounter Nursing Notes * Tiffany Carbone LPN - 08/15/2022 10:16 AM EDT Chief Complaint Patient presents with Re-Check 6 month return. No concerns at this time documented in this encounter Plan of Treatment Upcoming Encounters Date Type Specialty Care Team Description 08/15/2022 Office Visit Cardiology Jaylen Ponce, DO [address] [place] [address] 03/21/2023 Office Visit Internal Medicine Hamilton [facility] [address] [facility] [address] Scheduled Orders Name Type Priority Associated Diagnoses Orde r Schedule COMPREHENSIVE METABOLIC PANEL Lab Routine Dyslipidemia, goal LDL below 160 HTN, goal below 140/90 Expected: 08/15/2022 (Approximate), Expires: 08/15/2023 LIPID PANEL WITH DIRECT LDL IF TG IS HIGH Lab Routine Dyslipidemia, goal LDL below 160 HTN, goal below 140/90 Expected: 08/15/2022, Expires: 08/16/2023 PTH Lab Routine Hyperparathyroidism, primary (HCC) Expected: 08/15/2022 (Approximate), Expires: 08/15/2023 25-HYDROXY VITAMIN D Lab Routine Hyperparathyroidism, primary (HCC) Expected: 08/15/2022 (Approximate), Expires: 08/15/2023 Scheduled Procedures Name Priority Associated Diagnoses Date/Ti me COLONOSCOPY FLEXIBLE PROXIMAL DIAGNOSTIC Recall History of colon polyps Scheduled Referrals Name Type Priority Associated Diagnoses Orde r Schedule COLONOSCOPY, GI REFERRAL OP Referral Within 30 days (routine) History of colon polyps Ordered: 08/15/2022 Health Maintenance Due Date Last Done Comments DXA Scan 01/24/2017 01/24/2015, 01/09, 01/05/2011, Additional history exists Depression Screening, Annual for Pts 12 and Over 01/13/2021 01/14/2020 COLONOSCOPY-EVERY 3 YRS AGES 18-100 10/26/2022 10/27/2019, 07/10/2012, 07/10/2012, Additional history exists Influenza Vaccine (FLU shot) (Season Ended) 2022 12/27/2020, 11/12/2019, 11/09/2018, Additional history exists GFR 02/12/2023 02/12/2022, 07/10, 07/20/2021, Additional history exists DTaP,Tdap,and Td Vaccines (2 [...] D LEVEL ONCE IN A LIFETIME-USE SMARTSET# [id number] Completed 02/12/2022, 08/02/2021, 10/14/2020, Additional history exists [...] colon polyps Personal history of colonic polyps documented in this encounter Care Teams Surgeon Chief Relationship Specialty Start Date End Date Hamilton Graham MD [address] [facility] [place] [address] PCP - General Internal Medicine 07/18/15 documented as of this encounter"
--- OUTSIDE RECORDS SUMMARY | 2023-02-09 08:50 | External Medical Summary | Summary of Care ---
Author Name Unknown Organization [facility] Address [address] [place] [address] Phone [phone] Care Team Providers Care Intelligent Systems Engineer Name Role Phone Hamilton Graham MD Primary Care Provider + Reason for Visit * Reason Onset Date Comments Appointment 08/17/2022 colonoscopy Encounter Details Date Type Department Care Team Description 08/17/2022 Telephone General Internal Medicine [facility] [place] [address] [facility] [place] [address] Hamilton Graham MD 200 [place] [address] Appointment (colonoscopy) Allergies No known active allergiesdocumented as of this encounter (statuses as of 08/22/2022) Medications Medication Sig Dispensed Refills Start Date [...] as of this encounter (statuses as of 08/22/2022) Active Problems Problem Noted Date Exudative age-related [...] as of this encounter (statuses as of 08/22/2022) Resolved Problems Problem Noted Date Resolved Date No advance directive on file 11/01/200504/2017 Overview: =no BENIGN HYPERTENSION 07/09/2001 01/14/2009 Overview: Modified per HTN Taxonomy. Osteoporosis 01/16/2008 PURE HYPERCHOLESTEROLEM 02/16/20 09 Overview: Per Lipid Taxonomy. Family history of other cardiovascular diseases 03/12/2017 documented as of this encounter (statuses as of 08/22/2022) Immunizations Name Administration Dates Next Due COVID-19 [...] * Telephone Encounter - REID Elias - 08/22/2022 1:40 PM EDT MyG message sent 08/22 * Telephone Encounter - REID Elias - [...] Name: Carolyn Wall Birthdate: 1940 Patient's Address: [address] [place] [phone] Home: Work: Cell: Patient Preference: Referral ID: [id number] Referred To: COLONOSCOPY, GI REFERRAL OP [employer]: Provider Specialty: Gastroenterology Priority: Within 30 days (routine) Visit Coverage: MEDICARE A AND B Primary Payor: MEDICARE Appointment Info: Date: Time: Referral Type: Ancillary Services [] Expiration Date: Number of Visits Requested: 999 Associated Diagnosis: History of colon polyps (Z86.010) Problem/Desired Service from [employer]: ALERT: Do not order for pediatric patients (18 years or younger). Cancel off screen and order PEDS GASTROENTEROLOGY CONSULT (Type: 1 visit only-Evaluate and Treat) The following Pt. Instructions are available: - Gastro Colonoscopy Prep Instructions [[id number]] - Gastro Colonoscopy Prep Instructions (Romanian Version) [[id number]] Go to the Pt. Instructions section within [...] Office Visit Internal Medicine Hamilton Graham MD [address] [place] [address] Scheduled Procedures Name Priority Associated Diagnoses [...] D LEVEL ONCE IN A LIFETIME-USE SMARTSET# [id number] Completed 08/15/2022, 02/12/2022, 08/02/2021, Additional history exists [...] filedocumented as of this encounter Care Teams Intelligent Systems Engineer Relationship Specialty Start Date End Date Hamilton Graham MD [address] [place] [address], [place] [address] PCP - General Internal Medicine 07/18/15 documented as of this encounter
--- OUTSIDE RECORDS SUMMARY | 2023-02-09 08:50 | External Medical Summary | Summary of Care ---
Author Name Unknown Organization [facility] Address [address] [place] [address] Phone [phone] Care Team Providers Care Motorcycle Police Name Role Phone Hamilton Graham MD Primary Care Provider + Reason for Visit * Reason Onset Date Comments Appointment 08/17/2022 colonoscopy Encounter Details Date Type Department Care Team Description 08/17/2022 Telephone General Internal Medicine [facility] [place] [address] [facility] [place] [address] Hamilton Graham MD 200 [facility] [place] [facility] [place] [address] Appointment (colonoscopy) Allergies No known active allergiesdocumented as of this encounter (statuses as of 08/23/2022) Medications Medication Sig Dispensed Refills Start Date [...] as of this encounter (statuses as of 08/23/2022) Active Problems Problem Noted Date Exudative age-related [...] as of this encounter (statuses as of 08/23/2022) Resolved Problems Problem Noted Date Resolved Date No advance directive on file 11/01/200504/2017 Overview: =no BENIGN HYPERTENSION 07/09/2001 01/14/2009 Overview: Modified per HTN Taxonomy. Osteoporosis 01/16/2008 PURE HYPERCHOLESTEROLEM 02/16/20 09 Overview: Per Lipid Taxonomy. Family history of other cardiovascular diseases 03/12/2017 documented as of this encounter (statuses as of 08/23/2022) Immunizations Name Administration Dates Next Due COVID-19 [...] * Telephone Encounter - REID Elias - 08/23/2022 8:58 AM EDT Letter sent 08/23 * Telephone Encounter - REID Elias - [...] REQUEST COLONOSCOPY, GI REFERRAL OP Name: Carolyn Wlal Birthdate: 1940 Patient's Address: [facility] [place] [address] Home: Work: Cell: Patient Preference: Referral ID: [id number] Referred To: COLONOSCOPY, GI REFERRAL OP Materials Planner/Production Planner: Provider Specialty: Gastroenterology Priority: Within 30 days (routine) Visit Coverage: MEDICARE A AND B Primary Payor: MEDICARE Appointment Info: Date: Time: Referral Type: Ancillary Services [] Expiration Date: Number of Visits Requested: 999 Associated Diagnosis: History of colon polyps (Z86.010) Problem/Desired Service from Materials Planner/Production Planner: ALERT: Do not order for pediatric patients (18 years or younger). Cancel off screen and order PEDS GASTROENTEROLOGY CONSULT (Type: 1 visit only-Evaluate and Treat) The following Pt. Instructions are available: - Gastro Colonoscopy Prep Instructions [[id number]] - Gastro Colonoscopy Prep Instructions (Urdu Version) [[id number]] Go to the Pt. Instructions section within [...] Office Visit Internal Medicine Hamilton Graham MD [address] [place] [address] Scheduled Procedures Name Priority Associated Diagnoses [...] D LEVEL ONCE IN A LIFETIME-USE SMARTSET# [id number] Completed 08/15/2022, 02/12/2022, 08/02/2021, Additional history exists [...] filedocumented as of this encounter Care Teams Motorcycle Police Relationship Specialty Start Date End Date Hamilton Graham MD [address] [place] [address], [place] [address] PCP - General Internal Medicine 07/18/15 documented as of this encounter
--- OUTSIDE RECORDS SUMMARY | 2023-02-09 08:50 | External Medical Summary ---
Author Name Unknown Address Unknown Organization K09:[facility] [place] [address] [place] [address] Laboratory Report Ordering Provider Test Date Status REMY SARGENT 09/18/2022 10:16:39 Final Observation Date Value Abnormality Reference (Units ) Status BUN 09/18/2022 10:16:39 21 Above high normal 6-20 (mg/dL) Final Creatinine 09/18/2022 10:16:39 0.8 0.5-1.0 (mg/dL) Final Glomerular filtration rate/1.73 sq M.predicted [Volume Rate/Area] in Serum, Plasma or Blood by Creatinine-based formula (CKD-EPI) 09/18/2022 10:16:39 77 >=60 (mL/min) Final eGFR is calculated based on the CKD-EPI 2020 equation SODIUM 09/18/2022 10:16:39 141 135-146 (m mol/L) Final Potassium 09/18/2022 10:16:39 3.8 3.5-5.1 (m mol/L) Final Cl 09/18/2022 10:16:39 103 98-107 (mm ol/L) Final CO2 09/18/2022 10:16:39 30 22-32 (mmo l/L) Final Anion gap 09/18/2022 10:16:39 8 7-15 (mmol /L) Final Glucose 09/18/2022 10:16:39 93 70-120 (mg /dL) Final Calcium 09/18/2022 10:16:39 10.0 8.4-10.2 ( mg/dL) Final Performing Location [facility] [place] [address] [place] [address]
--- OUTSIDE RECORDS SUMMARY | 2023-02-09 08:50 | External Medical Summary | Summary of Care ---
Author Name Unknown Organization [facility] Address [address] [place] [facility] [place] [address] Phone [phone] Care Team Providers Care Licensed Funeral Director And Embalmer Name Role Phone Hamilton Graham MD Primary Care Provider + Reason for Visit * Reason Comments Outpatient Testing Encounter Details Date Type Department Care Team Description 08/15/2022 Laboratory [facility], [facility] [address] [facility] [id number] [facility] [address] [place] [address] Dyslipidemia, goal LDL below 160; HTN, goal below 140/90; Hyperparathyroidism, primary (HCC) Allergies No known active allergiesdocumented as [...] Visit Internal Medicine Hamilton Graham MD [address] [phone] Pending Results Name Type Priority Associated Diagnoses Date /Time COMPREHENSIVE METABOLIC PANEL Lab Routine Dyslipidemia, goal LDL below 160 HTN, goal below 140/90 08/15/2022 2:24 PM EDT LIPID PANEL WITH DIRECT LDL IF TG IS HIGH Lab Routine Dyslipidemia, goal LDL below 160 HTN, goal below 140/90 08/15/2022 2:24 PM EDT PTH Lab Routine Hyperparathyroidism, primary (HCC) 08/15/2022 2:24 PM EDT 25-HYDROXY VITAMIN D Lab Routine Hyperparathyroidism, primary (HCC) 08/15/2022 2:24 PM EDT Scheduled Procedures Name Priority Associated Diagnoses [...] D LEVEL ONCE IN A LIFETIME-USE SMARTSET# [id number] Completed 02/12/2022, 08/02/2021, 10/14/2020, Additional history exists [...] as of this encounter Visit Diagnoses Diagnosis Dyslipidemia, goal LDL below 160 Other and unspecified hyperlipidemia HTN, goal below 140/90 Unspecified essential hypertension Hyperparathyroidism, primary (HCC) Primary hyperparathyroidism documented in this encounter Care Teams Licensed Funeral Director And Embalmer Relationship Specialty Start Date End Date Hamilton Graham MD [address] [facility], [place] [phone] PCP - General Internal Medicine 07/18/15 documented as of this encounter
--- OUTSIDE RECORDS SUMMARY | 2023-02-09 08:50 | External Medical Summary ---
Author Name Unknown Address Unknown Organization [id number]:[facility] [place] [address] [place] [address] Laboratory Report Ordering Provider Test Date Status REMY SARGENT 08/15/2022 14:24:25 Final Observation Date Value Abnormality Reference (Units ) Status Parathyrin.intact [Mass/volume] in Serum or Plasma 08/15/2022 14:24:25 45 15-65 (pg/mL) Final Performing Location [facility] [place] [address] [place] [address]
[2023-02-09] MEDS ORDERED: ONDANSETRON INJ 2 MG/ML 2 ML VIAL IV STA (09:34)
[2023-02-09] MEDS ORDERED: SODIUM CHLORIDE 0.9% 500 ML IV ONE (09:34)
--- NOTE | 2023-02-09 09:57 | XRay Report ---
XR chest 1V portable CLINICAL HISTORY: Cough. COMPARISON STUDY: Chest radiograph December 20, 2022. FINDINGS: Dual lead left subclavian pacer is in place. There is no pneumothorax or pleural effusion. Moderate cardiomegaly is unchanged. There is no evidence for pulmonary edema. There is no consolidati on to suggest pneumonia. Linear right basilar densities favor atelectasis. IMPRESSION: No acute cardiopulmonary findings. Cardiomegaly. ACT 112: Negative or not required by law. Electronically signed by: Mark Beard M.D. 02/09/2023 9:56 AM
[2023-02-09 10:23] LABS: Basophils # (auto) 0.03 K/uL (0.00-0.20); Basophils % (auto) 0.3 %; Hematocrit (blood only) 39.1 % (37.0-47.0); Hemoglobin 13.8 g/dl (12.0-16.0); Immature Granulocytes # (auto) 0.02 K/uL (0.01-0.20); Immature Granulocytes % (auto) 0.2 %; Lymphocytes # (auto) 1.58 K/uL (1.20-3.40); Lymphocytes % (auto) 18.1 %; Mean Corpuscular Hemoglobin 31.7 pg (25.0-34.0); Mean Corpuscular Hgb Conc 35.3 g/dL (32.0-36.0); Mean Corpuscular Volume 89.7 fL (80.0-100.0); Mean Platelet Volume 10.6 fL (9.4-12.4); Monocytes % (auto) 14.9 %; Neutrophils # (auto) 5.79 K/uL (1.40-6.50); Neutrophils % (auto) 66.5 %; Platelet Count 176 K/uL (130-400); RDW Coefficient of Variation 13.2 % (11.5-14.5); RDW Standard Deviation 43.2 fL (36.4-46.3); Red Blood Count 4.36 M/uL (4.20-5.40); White Blood Count 8.72 K/ul (4.8-10.8)
[2023-02-09 10:25] LABS: Appearance Urine Cloudy (Clear); Bacteria Urine Automated 4+ (Negative); Bilirubin Urine Negative (Negative); Blood Urine 3+ (Negative); Color Urine Yellow; Epithelial Cell Urine Auto >30 /lpf (0-5); Glucose Urine UA Negative (Negative); Ketones Urine Negative (Negative); Leukocyte Esterase Urine 1+ (Negative); Nitrite Urine Positive (Negative); Protein Urine Negative (Negative); Specific Gravity Urine 1.017 (1.000-1.030); Urobilinogen Urine Negative (Negative)
[2023-02-09] MEDS ORDERED: cefTRIAXone SODIUM 2,000 MG/50 ML BAG IV STA (10:28)
[2023-02-09 10:44] LABS: Albumin Globulin Ratio 1.4 (0.9-2); BUN Creatinine Ratio 12.5 (10-20); Bilirubin,Total 1.2 mg/dl (0.2-1.0); Calcium 9.4 mg/dl (8.6-10.3); Creatinine Clr Calc Pharmacy 66.9 ml/min; Est GFR (African American) 89.1 ml/min; Est GFR (Non-African American) 76.9 ml/min; Globulin 2.9 gm/dl (2.5-4.0); Magnesium 1.9 mg/dl (1.7-2.4); Potassium 3.4 mmol/L (3.5-5.1); Total Protein 6.9 gm/dl (6.0-8.3)
[2023-02-09 10:46] LABS: Troponin I High Sensitivity 9.4 pg/ml (0-14)
--- NOTE | 2023-02-09 11:10 | Emergency Department Note ---
History of Present Illness General Chief complaint: Dehydration Stated complaint: VOMITING, DEHYDRATED Time Seen by Provider: 02/09/23 09:16 History of Present Illness Provider Complaint: + nausea and + vomiting Onset (ago): day(s) 1 Description of Vomiting: no bilious, no blood-streaked, no bloody or no coffee grounds Description of Diarrhea: + none Associated Abdominal Pain: No Maximum Pain Intensity: 0 Context: no foreign travel, no possible food poisoning, no recent antibiotic use, no alcohol abuse, no trauma, no NSAID use, no smoking or no marijuana use Associated symptoms: no myalgias, no chest pain, no cough, no headaches, no dysuria, no shortness of breath, no weakness, no decreased urine output, no fecal incontinence, no tenesmus or no anxiety Home Medications Medication Instructions Recorded Confirmed Type losartan 50 mg tablet 50 mg PO QAM 05/22/18 02/09/23 History cholecalciferol (vitamin D3) 25 25 mcg PO QAM 10/21/19 02/09/23 History mcg (1,000 unit) capsule (Vitamin D3) vit C 50 mg-E 15 unit-zinc cit 4.5 1 tab PO BID 10/21/19 02/09/23 History mg-lutein 2.5 mg-zeaxan chew tablet ([facility]) aspirin 81 mg tablet,delayed 81 mg PO QAM 12/18/22 02/09/23 History release atorvastatin 20 mg tablet 20 mg PO QPM 12/18/22 02/09/23 History hydrochlorothiazide 25 mg tablet 25 mg PO QAM 12/18/22 02/09/23 History apixaban 5 mg tablet (Eliquis) 5 mg PO BID #60 tabs 12/21/22 02/09/23 Rx metoprolol succinate 50 mg 50 mg PO BID #60 tabs 12/22/22 02/09/23 Rx tablet,extended release 24 hr potassium chloride 20 mEq 20 meq PO DAILY #30 tabs 12/22/22 02/09/23 Rx tablet,extended release amiodarone 200 mg tablet 200 mg PO QAM 02/09/23 02/09/23 History Allergies Allergy/AdvReac Type Severity Reaction Status Date / Time No Known Allergies Allergy Verified 12/18/22 22:54 Past Med/Surg History Medical History (Updated 02/09/23 @ 13:28 by Mina Brady MD) Morbid obesity Chronic back pain Osteoarthritis Osteoporosis Thyroid goiter Aortic aneurysm follows w/ Dr. Ponce and Vascular Surgery [place] - monitoring - last imaging 03/2019 [facility] Positive colorectal cancer screening using Cologuard test HLD (hyperlipidemia) HTN (hypertension) Surgical History History of colonoscopy History of tooth extraction History of section x 2 History of repair of anterior cruciate ligament of right knee S/P trigger finger release History of surgery on wrist Family History Other No pertinent family history Social History Smoking Status: Never smoker Second Hand Exposure: Yes ( is a smoker); Do You Dip or Chew Tobacco: No; Hx Alcohol Use: No Hx Substance Use: No Preferred Language: Pashto Communication Ability: Effective Test Preparer Required: No Beliefs That Will Affect Care: None Current Living Situation: Spouse Feels Safe at Home: Yes Assistive Devices: None Physical Exam 2 Vital Signs: Vital Signs - 24 hr 02/09/23 09:05 02/09/23 10:30 02/09/23 10:40 Temperature 37.1 C Temperature Source Temporal Artery Sc an Pulse Rate 72 66 66 Pulse Rate [Exerci ses] Respiratory Rate 16 23 Respiratory Rate [ Exercises] Respiratory Effort / Characteristics Non-Labored Respiratory Depth Normal Blood Pressure 136/81 140/86 Blood Pressure Marina n 99 115 Pulse Oximetry 97 98 Pulse Oximetry [Ex ercises] Oxygen Delivery Me thod Room Air Nasal Cannula Oxygen Flow Rate 1 Sepsis Recent Feve r Within 48 Hours No Sepsis New/Unexpla ined Change in Men prasad Status N/A Sepsis Action Take n by Nursing No Action Required 02/09/23 11:00 02/09/23 11:30 02/09/23 11:55 Temperature Temperature Source Pulse Rate 64 64 Pulse Rate [Exerci ses] 97 H Respiratory Rate 14 19 Respiratory Rate [ Exercises] 24 Respiratory Effort / Characteristics Respiratory Depth Blood Pressure 138/91 148/92 H Blood Pressure Marina n 106 107 Pulse Oximetry 98 98 Pulse Oximetry [Ex ercises] 88 L Oxygen Delivery Me thod Nasal Cannula Room Air Oxygen Flow Rate 1 Sepsis Recent Feve r Within 48 Hours Sepsis New/Unexpla ined Change in Men prasad Status Sepsis Action Take n by Nursing 02/09/23 12:00 Temperature Temperature Source Pulse Rate 64 Pulse Rate [Exerci ses] Respiratory Rate 19 Respiratory Rate [ Exercises] Respiratory Effort / Characteristics Respiratory Depth Blood Pressure 146/95 H Blood Pressure Marina n 112 Pulse Oximetry 98 Pulse Oximetry [Ex ercises] Oxygen Delivery Me thod Nasal Cannula Oxygen Flow Rate Sepsis Recent Feve r Within 48 Hours Sepsis New/Unexpla ined Change in Men prasad Status Sepsis Action Take n by Nursing Physical Exam: Physical Exam GENERAL: She is oriented to person, place, and time. She appears well-developed and well-nourished. She does not appear distressed. HENT: Exam performed. -Head: Normocephalic and atraumatic. -Right Ear: External ear normal. No mastoid erythema -Left Ear: External ear normal. No mastoid erythema -Mouth/Throat: The oropharynx is clear and moist. No trismus in the jaw. No dental abscesses or uvula swelling. No oropharyngeal exudate or tonsillar abscesses. EYES: Conjunctivae and EOM are normal.Right eye exhibits no discharge. Left eye exhibits no discharge. No scleral icterus. NECK: Normal range of motion. Neck supple. No JVD present. No tracheal deviation and normal range of motion present. CV: Normal rate, regular rhythm, normal heart sounds and intact distal pulses. There is no peripheral edema. Palpable radial pulses bue. PULM/CHEST: Effort normal and breath sounds normal. No respiratory distress. No stridor. She has no wheezes. She has no rales. -Chest Wall: She exhibits no tenderness. ABD: The abdomen is soft. Bowel sounds are normal. She has no distension. No mass is present. There is no tenderness. There is no rebound, no guarding, no Huynh's sign and no tenderness at McBurney's point. Rovsig negative MUSC/SKEL: Normal range of motion. There is no peripheral edema, tenderness or deformity. NEURO: Motor and sensation grossly intact. SKIN: Skin is warm and dry. She is not diaphoretic. PSYCH: She has a normal mood and affect. Behavior is normal. Judgment and thought content normal. Course Course 09: The patient was evaluated in room C11. A complete history and physical exam was performed Cardiac monitoring: An order was placed for continuous cardiac monitoring. The monitor shows a rate of 70 with sinus rhythm interpreted by ny 1030: Nurse reports that when the patient sleeping her oxygen is dipping down into the high 80s. 1 L nasal cannula was applied to the patient. 1200: Labs are within normal limits. Urinalysis shows UTI. Rocephin given. Patient is positive for COVID. Upon ambulating to the restroom the patient's oxygen saturation dipped down to the mid 80s. Decadron ordered for the patient. Patient be admitted to the [facility] team for her hypoxia with COVID as well as UTI. Administered Medications Discontinued Medications Dexamethasone Sodium Phosphate (DexamethasonePf 10 Mg/Ml Vial) 6 mg IV NOW ONE Stop: 02/09/23 12:37 Last Admin: 02/09/23 12:52 Dose: 6 mg Documented By: IDA Sodium Chloride (Nss) 500 mls @ 999 mls/hr IV .Q31M ONE Stop: 02/09/23 10:04 Last Infusion: 02/09/23 10:57 Dose: Infused Documented By: Admin: 02/09/23 10:21 Dose: 999 mls/hr Documented By: IDA Ceftriaxone Sodium (Rocephin) 2,000 mg in 50 mls @ 100 mls/hr IV NOW STA Stop: 02/09/23 10:57 Last Infusion: 02/09/23 11:14 Dose: Infused Documented By: Admin: 02/09/23 10:38 Dose: 100 mls/hr Documented By: IDA Ondansetron HCl (Ondansetron Inj 2 Mg/Ml 2 Ml Vial) 4 mg IV NOW STA Stop: 02/09/23 09:35 Last Admin: 02/09/23 10:21 Dose: 4 mg Documented By: IDA Medical Decision Making Laboratory Data Attestation: I reviewed the patient's lab results. 02/09/23 10:08 02/09/23 10:08 Lab Results 02/09/23 02/09/23 Range/Units 10:03 10:08 WBC 8.72 (4.8-10.8) K/ul RBC 4.36 (4.20-5.40) M/uL Hgb 13.8 (12.0-16.0) g/dl Hct 39.1 (37.0-47.0) % MCV 89.7 (80.0-100.0) fL MCH 31.7 (25.0-34.0) pg MCHC 35.3 (32.0-36.0) g/dL RDW Std Deviation 43.2 (36.4-46.3) fL RDW Coeff of Edith 13.2 (11.5-14.5) % Plt Count 176 (130-400) K/uL MPV 10.6 (9.4-12.4) fL Immature Gran % (Auto) 0.2 % Neut % (Auto) 66.5 % Lymph % (Auto) 18.1 % [place] % (Auto) 14.9 % Eos % (Auto) 0.0 % Baso % (Auto) 0.3 % Neut # (Auto) 5.79 (1.40-6.50) K/uL Lymph # (Auto) 1.58 (1.20-3.40) K/uL [place] # (Auto) 1.30 H (0.11-0.59) K/uL Eos # (Auto) 0.00 (0.00-0.50) K/uL Baso # (Auto) 0.03 (0.00-0.20) K/uL Immature Gran # (Auto) 0.02 (0.01-0.20) K/uL Sodium 138 (136-145) mmol/L Potassium 3.4 L (3.5-5.1) mmol/L Chloride 102 (98-107) mmol/L Carbon Dioxide 28 (21-32) mmol/L Anion Gap 8 (3-11) BUN 9 (6-23) mg/dl Creatinine 0.72 (0.6-1.2) mg/dl Est Cr Clr Drug Dosing 66.9 ml/min Est GFR ( Amer) 89.1 ml/min Est GFR (Non-Af Amer) 76.9 ml/min BUN/Creatinine Ratio 12.5 (10-20) Glucose 108 H (70-99(Fasting)) mg/dl Calcium 9.4 (8.6-10.3) mg/dl Magnesium 1.9 (1.7-2.4) mg/dl Total Bilirubin 1.2 H (0.2-1.0) mg/dl AST 25 (13-39) U/L ALT 21 (7-52) U/L Alkaline Phosphatase 84 (34-104) U/L Troponin I High Sens 9.4 (0-14) pg/ml Total Protein 6.9 (6.0-8.3) gm/dl Albumin 4.0 (3.4-5.0) gm/dl Globulin 2.9 (2.5-4.0) gm/dl Albumin/Globulin Ratio 1.4 (0.9-2) Lipase 38 (11-82) U/L Urine Color Yellow Urine Appearance Cloudy A (Clear) Urine pH 6.0 (4.5-7.5) Ur Specific [place] 1.017 (1.000-1.030) Urine Protein Negative (Negative) Urine Glucose (UA) Negative (Negative) Urine Ketones Negative (Negative) Urine Blood 3+ H (Negative) Urine Nitrite Positive A (Negative) Urine Bilirubin Negative (Negative) Urine Urobilinogen Negative (Negative) Ur Leukocyte Esterase 1+ H (Negative) Urine WBC (Auto) 10-30 H (0-5) /hpf Urine RBC (Auto) 10-30 H (0-4) /hpf U Hyaline Cast (Auto) 1-5 (0-5) /lpf U Epithel Cells (Auto) >30 H (0-5) /lpf Urine Bacteria (Auto) 4+ H (Negative) Adenovirus (PCR) Not Detected (NotDetected) B. pertussis DNA (PCR) Not Detected (NotDetected) B.parapertussis DNA PCR Not Detected (NotDetected) C. pneumoniae DNA (PCR) Not Detected (NotDetected) Coronavirus OC43 (PCR) Not Detected (NotDetected) Coronavirus HKU1 (PCR) Not Detected (NotDetected) Coronavirus 229E (PCR) Not Detected (NotDetected) SARS-CoV-2 (PCR) DETECTED A* (NotDetected) Coronavirus NL63 (PCR) Not Detected (NotDetected) Human Metapneumovir PCR Not Detected (NotDetected) Influenza Type A (PCR) Not Detected (NotDetected) Influenza Type B (PCR) Not Detected (NotDetected) M. pneumoniae (PCR) Not Detected (NotDetected) Parainfluenza 1 (PCR) Not Detected (NotDetected) Parainfluenza 2 (PCR) Not Detected (NotDetected) Parainfluenza 3 (PCR) Not Detected (NotDetected) Parainfluenza 4 (PCR) Not Detected (NotDetected) RSV (PCR) Not Detected (NotDetected) Entero/Rhino (PCR) Not Detected (NotDetected) Imaging Data Attestation: I personally reviewed and interpreted this imaging study as follows: My Impression: Chest x-ray: Cardiomegaly with no cephalization Radiologist's Impression: Chest X-Ray 02/09/23 09:34 XR chest 1V portable CLINICAL HISTORY: Cough. COMPARISON STUDY: Chest radiograph December 20, 2022. FINDINGS: Dual lead left subclavian pacer is in place. There is no pneumothorax or pleural effusion. Moderate cardiomegaly is unchanged. There is no evidence for pulmonary edema. There is no consolidation to suggest pneumonia. Linear right basilar densities favor atelectasis. IMPRESSION: No acute cardiopulmonary findings. Cardiomegaly. ACT 112: Negative or not required by law. Electronically signed by: Mark Beard M.D. 02/09/2023 9:56 AM ECG Data Attestation: I personally reviewed and interpreted this ECG as follows: Additional Comments: Paced rhythm with a rate of 64. CA 294 QRS 96 QTc 468. No ectopy. [facility] Narrative 0916: The patient was evaluated in room C11. A complete history and physical exam was performed Cardiac monitoring: An order was placed for continuous cardiac monitoring. The monitor shows a rate of 70 with sinus rhythm interpreted by me 1030: Nurse reports that when the patient sleeping her oxygen is dipping down into the high 80s. 1 L nasal cannula was applied to the patient. 1200: Labs are within normal limits. Urinalysis shows UTI. Rocephin given. Patient is positive for COVID. Upon ambulating to the restroom the patient's oxygen saturation dipped down to the mid 80s. Decadron ordered for the patient. Patient be admitted to the [facility] team for her hypoxia with COVID as well as UTI. Impression & Plan Hypoxia, Acute UTI, COVID-19 Critical Care Time Critical Care Time: Yes Total Critical Care Time: 48 I have personally spent greater than 48 minutes of critical care time in the direct management of this patient. This includes bedside care, interpretation of diagnostic studies, and testing, discussion with consultants, patient, and family members, and other required patient management activities. This 48 minutes is in excess of all separately billable procedures. Discharge Plan Visit Data Chief Complaint: Dehydration Stated Complaint: VOMITING, DEHYDRATED ED Provider: Mina Brady Discharge Problem: Hypoxia, Acute UTI, COVID-19 Patient Disposition: Admitted As Inpatient Forms Stand Alone Forms: [facility] Prescriptions Prescriptions: No Action losartan 50 mg tablet 50 mg PO QAM cholecalciferol (vitamin D3) [Vitamin D3] 25 mcg (1,000 unit) Capsule 25 mcg PO QAM [facility] mg-15 unit- 4.5 mg-2.5 mg Tablet,Chewable 1 tab PO BID atorvastatin 20 mg tablet 20 mg PO QPM hydrochlorothiazide 25 mg tablet 25 mg PO QAM aspirin 81 mg Tablet,Delayed Release (Dr/Ec) 81 mg PO QAM Eliquis 5 mg Tablet 5 mg PO BID Qty: 60 0RF metoprolol succinate 50 mg tablet extended release 24 hr 50 mg PO BID Qty: 60 0RF potassium chloride 20 mEq tablet extended release 20 meq PO DAILY Qty: 30 0RF amiodarone 200 mg tablet 200 mg PO QAM Referrals Referrals: Hamilton Graham MD [Primary Care Provider] -
[2023-02-09 11:24] LABS: Adenovirus PCR Not Detected (NotDetected); Bordetella parapertussis PCR Not Detected (NotDetected); Bordetella pertussis PCR Not Detected (NotDetected); Chlamydia pneumoniae PCR Not Detected (NotDetected); Coronavirus 229E PCR Not Detected (NotDetected); Coronavirus HKU1 PCR Not Detected (NotDetected); Coronavirus NL63 PCR Not Detected (NotDetected); Coronavirus OC43PCR Not Detected (NotDetected); Human Metapneumovirus PCR Not Detected (NotDetected); Influenza A PCR Not Detected (NotDetected); Influenza B PCR Not Detected (NotDetected); Mycoplasma pneumoniae PCR Not Detected (NotDetected); Parainfluenza Virus 1 PCR Not Detected (NotDetected); Parainfluenza Virus 2 PCR Not Detected (NotDetected); Parainfluenza Virus 3 PCR Not Detected (NotDetected); Parainfluenza Virus 4 PCR Not Detected (NotDetected); Respiratory Syncytial VirusPCR Not Detected (NotDetected); Rhinovirus/Enterovirus PCR Not Detected (NotDetected)
[2023-02-09 11:27] LABS: Coronavirus CoV-2 (COVID19)PCR DETECTED (NotDetected)
[2023-02-09] MEDS ORDERED: dexAMETHasone**PF** 10 MG/ML VIAL IV ONE (12:36)
--- NOTE | 2023-02-09 12:47 | History & Physical Report ---
Date of Service February 09, 2023 Assessment & Plan (1) COVID-19: (2) Paroxysmal atrial fibrillation: (3) Pacemaker: (4) Ascending aortic aneurysm: (5) HTN (hypertension): (6) HLD (hyperlipidemia): (7) LBBB (left bundle branch block): (8) Osteoporosis: Plan: This is an 82-year-old female with PMHx of HTN, HLD, LBBB, paroxysmal A-fib with tachybradycardia syndrome status post dual-chamber pacemaker implanted on 12/21/2022 and recent hospital stay in early December this year., macular degeneration, thoracic aortic aneurysm, hyperparathyroidism, osteoporosis presents to the hospital with viral symptoms including weakness, fatigue, nausea and vomiting. Here patient fell asleep and found that her O2 sats were dropping near 80%, she tested positive for COVID-19 and is found to have UA which is suspicious for infection. COVID-19 Weakness, nausea, vomiting Hypokalemia - COVID-19 positive - Procalcitonin and CRP pending - WBC 8.72, no lymphopenia - CXR reviewed: Showing the dual-lead left subclavian pacer in place, no pneu mothorax, no pleural effusion, moderate cardiomegaly unchanged, no evidence for pulmonary edema, no consolidation to suggest pneumonia, linear right basilar densities favor atelectasis - O2 sats dropped to 80% in the ER at sleep, patient does not wear supplemental O2 at baseline-patient is unaware if she has previously dropped O2 while she is asleep, no hx of REID or CPAP at bedtime. Currently the patient has saturations at 97 and 98% on 1 L NC - WBC = 8.72, no left shift -Initiated on decadron 6 mg IV daily, continue - Potassium replaced with additional 20 meq now and continue home dosing 20 meq daily Paroxysmal A-fib with tachybradycardia syndrome status post recent dual-chamber pacemaker implantation on 12/21/2022 HTN LBBB HLD Ascending aortic aneurysm -Aneurysm measures 5.0 to 5.4 cm, stable diameter per CT 07/2021, follows with cardiology, Dr. Ponce as an outpatient, continued observation, for now conservative management patient was not interested in invasive procedures/surgery during her most recent outpatient visit on 01/21/2023 -Cardiology recent reduce amiodarone to 200 mg once daily -Continue current dose of metoprolol succinate and apixaban, per outpatient epic note metoprolol was being considered to be reduced to 50 mg once daily pending review of follow-up pacemaker interrogation -Continue home medications as prescribed UTI -UA appears suspicious for infection, trend urine culture, pt is asymptomatic -Administered IV ceftriaxone in the ER, continue empirically DVT: Eliquis, teds, scds Lines: 2 PIV FEN/GI: HH diet CODE: Full code Dispo: From home, likely to remain in the hospital x 1-2 days History of Present Illness Chief Complaint: Nausea, vomiting, weakness Primary Care Provider: Hamilton Graham MD This is an 82-year-old female with PMHx of HTN, HLD, LBBB, paroxysmal A-fib with tachybradycardia syndrome status post dual-chamber pacemaker implanted on 12/21/2022 and recent hospital stay in early December this year., macular de generation, thoracic aortic aneurysm, hyperparathyroidism, osteoporosis presents to the hospital with viral symptoms including weakness, fatigue, nausea and vomiting. Here patient fell asleep and found that her O2 sats were dropping near 80%, she tested positive for COVID-19 and is found to have UA which is suspicious for infection. Pt started having viral like symptoms on Saturday afternoon, this included generalized malaise, fatigue, nausea, and vomited twice, as well as decreased appetite due to nausea. She feels better at this point since being given Zofran in the ER and wants to try to eat something since she has not truly had anything since Saturday. She hasn't had any fluids today because of nausea, but received 1 bag IV fluids here in the ER. Denies any fevers. Patient denies any abdominal pain diarrhea or constipation. She denies feeling specifically short of breath or having a cough. Lives at home with her , and her daughter is present with her at bedside. Patient has been vaccinated against COVID and received multiple booster shots, this is the first time that she has tested positive for it. She took all her morning medications today. Patient denies any urinary symptoms including increased frequency, hematuria, dysuria, etc. Allergies Allergy/AdvReac Type Severity Reaction Status Date / Time No Known Allergies Allergy Verified 12/18/22 22:54 Home Medications Medication Instructions Recorded Confirmed Type losartan 50 mg tablet 50 mg PO QAM 05/22/18 02/09/23 History cholecalciferol (vitamin D3) 25 25 mcg PO QAM 10/21/19 02/09/23 History mcg (1,000 unit) capsule (Vitamin D3) vit C 50 mg-E 15 unit-zinc cit 4.5 1 tab PO BID 10/21/19 02/09/23 History mg-lutein 2.5 mg-zeaxan chew tablet ([employer]) aspirin 81 mg tablet,delayed 81 mg PO QAM 12/18/22 02/09/23 History release atorvastatin 20 mg tablet 20 mg PO QPM 12/18/22 02/09/23 History hydrochlorothiazide 25 mg tablet 25 mg PO QAM 12/18/22 02/09/23 History apixaban 5 mg tablet (Eliquis) 5 mg PO BID #60 tabs 12/21/22 02/09/23 Rx metoprolol succinate 50 mg 50 mg PO BID #60 tabs 12/22/22 02/09/23 Rx tablet,extended release 24 hr potassium chloride 20 mEq 20 meq PO DAILY #30 tabs 12/22/22 02/09/23 Rx tablet,extended release amiodarone 200 mg tablet 200 mg PO QAM 02/09/23 02/09/23 History Past Med/Surg History Medical History Morbid obesity Chronic back pain Osteoarthritis Osteoporosis Thyroid goiter Aortic aneurysm follows w/ Dr. Ponce and Vascular Surgery [facility] - last imaging 03/2019 [facility] Positive colorectal cancer screening using Cologuard test HLD (hyperlipidemia) HTN (hypertension) Surgical History History of colonoscopy History of tooth extraction History of section x 2 History of repair of anterior cruciate ligament of right knee S/P trigger finger release History of surgery on wrist Family History Other No pertinent family history Social History Smoking Status: Never smoker Second Hand Exposure: Yes ( is a smoker); Do You Dip or Chew Tobacco: No; Hx Alcohol Use: No Hx Substance Use: No Preferred Language: Brazilian Communication Ability: Effective Playground Aide Required: No Beliefs That Will Affect Care: None Current Living Situation: Spouse Feels Safe at Home: Yes Assistive Devices: None Review of Systems Review of Systems: Constitutional: No fever, sweats or chills, + generalized malaise and fatigue Eyes: No diplopia, no worsening or blurred vision ENT: normal hearing, no trouble swallowing Respiratory: No cough, sputum, dyspnea at rest or on exertion Cardiovascular: No chest pain, tightness or palpitations Abdomen: No pain, + nausea, +vomiting, no diarrhea or constipation Musculoskeletal: No joint pain, calf pain, swelling Neurologic: + General weakness but no focal weakness, numbness/tingling, or balance problems Psychiatric: No anxiety or depression Skin: No rash or itch Physical Exam Physical Exam: General: awake, alert, no apparent distress, keeps her eyes closed during majority of the exam, Head: Normocephalic, atraumatic ENT: PERRL, EOMI, no pharyngeal exudate, mucous membranes moist Chest: Clear to auscultation, on 1L via NC with O2 sats at 97 to 98% at rest, no adventitious breath sounds Cardiac: Previous pacer incision is well-healed on left upper chest wall, regular rate and rhythm, no murmur, no JVD, normal peripheral pulses, good capillary refill Abdominal: NABS x 4 quadrants, soft, nondistended, nontender to palpation, no rebound or guarding Extremities: Normal inspection, no peripheral edema or erythema, calfs nontender to palpation Psych: Normal mood and affect Neuro: AAO x 3, strength intact bilaterally and rated 5/5, no motor deficits, speech is clear, no peripheral sensory deficits Results & Data Results & Data Vital Signs (Past 12 Hours) Vital Signs Temp Pulse Pulse Resp Resp BP Pulse Ox 02/09/23 12:00 64 19 146/95 H 98 02/09/23 11:55 97 H 24 02/09/23 11:30 64 19 148/92 H 98 02/09/23 11:00 64 14 138/91 98 02/09/23 10:40 66 02/09/23 10:30 66 23 140/86 98 02/09/23 09:05 37.1 C 72 16 136/81 97 Pulse Ox O2 Del Method O2 Flow Rate 02/09/23 12:00 Nasal Cannula 02/09/23 11:55 88 L Room Air 02/09/23 11:30 Nasal Cannula 1 02/09/23 11:00 02/09/23 10:40 02/09/23 10:30 Nasal Cannula 1 02/09/23 09:05 Room Air Laboratory Results 02/09/23 10:03 Urine Culture - Pending Urine,Clean Catch 02/09/23 02/09/23 10:08 10:03 WBC 8.72 RBC 4.36 Hgb 13.8 Hct 39.1 MCV 89.7 MCH 31.7 MCHC 35.3 RDW Std Deviation 43.2 RDW Coeff of Edith 13.2 Plt Count 176 MPV 10.6 Immature Gran % (Auto) 0.2 Neut % (Auto) 66.5 Lymph % (Auto) 18.1 [place] % (Auto) 14.9 Eos % (Auto) 0.0 Baso % (Auto) 0.3 Neut # (Auto) 5.79 Lymph # (Auto) 1.58 [place] # (Auto) 1.30 H Eos # (Auto) 0.00 Baso # (Auto) 0.03 Immature Gran # (Auto) 0.02 Sodium 138 Potassium 3.4 L Chloride 102 Carbon Dioxide 28 Anion Gap 8 BUN 9 Creatinine 0.72 Est Cr Clr Drug Dosing 66.9 Est GFR ( Amer) 89.1 Est GFR (Non-Af Amer) 76.9 BUN/Creatinine Ratio 12.5 Glucose 108 H Calcium 9.4 Magnesium 1.9 Total Bilirubin 1.2 H AST 25 ALT 21 Alkaline Phosphatase 84 Troponin I High Sens 9.4 C-Reactive Protein 1.25 H Total Protein 6.9 Albumin 4.0 Globulin 2.9 Albumin/Globulin Ratio 1.4 Lipase 38 Procalcitonin < 0.05 Urine Color Yellow Urine Appearance Cloudy A Urine pH 6.0 Ur Specific [place] 1.017 Urine Protein Negative Urine Glucose (UA) Negative Urine Ketones Negative Urine Blood 3+ H Urine Nitrite Positive A Urine Bilirubin Negative Urine Urobilinogen Negative Ur Leukocyte Esterase 1+ H Urine WBC (Auto) 10-30 H Urine RBC (Auto) 10-30 H U Hyaline Cast (Auto) 1-5 U Epithel Cells (Auto) >30 H Urine Bacteria (Auto) 4+ H Adenovirus (PCR) Not Detected B. pertussis DNA (PCR) Not Detected B.parapertussis DNA PCR Not Detected C. pneumoniae DNA (PCR) Not Detected Coronavirus OC43 (PCR) Not Detected Coronavirus HKU1 (PCR) Not Detected Coronavirus 229E (PCR) Not Detected SARS-CoV-2 (PCR) DETECTED A* Coronavirus NL63 (PCR) Not Detected Human Metapneumovir PCR Not Detected Influenza Type A (PCR) Not Detected Influenza Type B (PCR) Not Detected M. pneumoniae (PCR) Not Detected Parainfluenza 1 (PCR) Not Detected Parainfluenza 2 (PCR) Not Detected Parainfluenza 3 (PCR) Not Detected Parainfluenza 4 (PCR) Not Detected RSV (PCR) Not Detected Entero/Rhino (PCR) Not Detected Diagnostic Findings Chest X-Ray 02/09/23 09:34 XR chest 1V portable CLINICAL HISTORY: Cough. COMPARISON STUDY: Chest radiograph December 20, 2022. FINDINGS: Dual lead left subclavian pacer is in place. There is no pneumothorax or pleural effusion. Moderate cardiomegaly is unchanged. There is no evidence for pulmonary edema. There is no consolidation to suggest pneumonia. Linear right basilar densities favor atelectasis. IMPRESSION: No acute cardiopulmonary findings. Cardiomegaly. ACT 112: Negative or not required by law. Electronically signed by: Mark Beard M.D. 02/09/2023 9:56 AM ECG Additional Comments: Reviewed personally, showing atrial paced rhythm with prolonged AV conduction No signs of ST wave abnormalities Code Status & VTE Plan Code Status Full code Supervising Physician Co-Signing Physician Notes Patient is a 82-year-old female with history of tachybradycardia syndrome, A- fib, hypertension and other comorbidities presents with history of flulike symptoms including generalized weakness, fatigue, nausea, vomiting. She was noted to be hypoxic dropping to 80s while in ED. Serology was positive for COVID-19 infection. She also admits to have decreased appetite. Flulike symptoms started since 3 to 4 days duration. She denies any significant cough. Please review HPI for complete details of presentation. Chest x-ray showed no signs of pneumonia. Lab work showed minimal hypokalemia, glucose 108, CRP 1.25 otherwise no significant abnormalities. Procalcitonin is normal. EKG showed atrial paced rhythm. Urinalysis abnormal suggestive of possible UTI. Physical Exam: Vitals signs as noted above General Appearance:Obese, no apparent distress Head: normocephalic, Atraumatic Eyes: normal inspection, EOMI Neck: supple, Trachea midline Respiratory/Chest: Decreased breath sounds, CTA, +Pacer, No accessory muscle use Cardiovascular: S1, S2, No murmur Abdomen/GI:Soft, Non tender, Bowel sounds present Extremities/Musculoskeletal:normal inspection, 1+ Pedal edema Neurologic/Psych:AAOX3, grossly no focal neurological deficits Skin: normal color, warm COVID-19 infection Hypokalemia Nausea, vomiting, generalized weakness likely secondary to above Suspected UTI No signs of sepsis Started on remdesivir, dexamethasone Also started on Rocephin empirically Nebs as needed Pulmonary hygiene Supplemental oxygen as needed PT OT as able Replace and monitor electrolytes as needed Continue home medications as appropriate I personally reviewed the record. Patient is interviewed and examined at bedside. Patient's care is coordinated with Annie Kidd PA-C. Please refer to the documentation above for details of patient's presentation and for discussion of other issues.
[2023-02-09 13:28] LABS: C Reactive Protein 1.25 mg/dl (0-0.5)
[2023-02-09] MEDS ORDERED: REMDESIVIR 200 MG in SODIUM CHLORIDE 0.9% 210 ML IV STA (15:21)
[2023-02-09] MEDS ORDERED: POTASSIUM CHLORIDE CRTAB 20 MEQ TABCR PO STA (15:30)
[2023-02-09] MEDS ORDERED: ONDANSETRON INJ 2 MG/ML 2 ML VIAL IV PRN (15:30)
[2023-02-09] MEDS ORDERED: ACETAMINOPHEN 325 MG TAB PO PRN (15:30)
[2023-02-09] MEDS: bisacodyL 5 MG TABEC PO SCH (16:59)
[2023-02-09] MEDS: POLYETHYLENE (MIRALAX) 17 GM PACK PO SCH (17:00)
[2023-02-09] MEDS: ALBUTEROL HFA 8 GM INHALER INH SCH ×2 (17:00→20:01)
[2023-02-09] MEDS: BENZONATATE 100 MG CAPSULE PO SCH ×2 (17:00→21:43)
[2023-02-09] MEDS ORDERED: LEVALBUTEROL HCL 0.63 MG/3 ML NEB NEB PRN (20:00)
[2023-02-09] MEDS: guaiFENesin 600 MG TABCR PO SCH (21:42)
[2023-02-09] MEDS: CEROVITE ADV FORMULA TAB PO SCH (21:42)
[2023-02-09] MEDS: METOPROLOL SUCC 50MG EXT REL TAB PO SCH (21:42)
[2023-02-09] MEDS: ATORVASTATIN 20 MG TAB PO SCH (21:43)
[2023-02-09] MEDS: APIXABAN 5 MG TABLET PO SCH (21:43)
[2023-02-10 07:00] LABS: Hematocrit (blood only) 35.2 % (37.0-47.0); Mean Corpuscular Hemoglobin 31.2 pg (25.0-34.0); Mean Corpuscular Hgb Conc 34.1 g/dL (32.0-36.0); Mean Corpuscular Volume 91.4 fL (80.0-100.0); Mean Platelet Volume 9.7 fL (9.4-12.4); Platelet Count 241 K/uL (130-400); RDW Coefficient of Variation 13.4 % (11.5-14.5); RDW Standard Deviation 45.3 fL (36.4-46.3); Red Blood Count 3.85 M/uL (4.20-5.40); White Blood Count 7.25 K/ul (4.8-10.8)
[2023-02-10 07:14] LABS: Calcium 8.5 mg/dl (8.6-10.3); Creatinine Clr Calc Pharmacy 69.2 ml/min; Est GFR (African American) 92.2 ml/min; Est GFR (Non-African American) 79.6 ml/min; Phosphorus 3.5 mg/dl (2.5-4.9); Potassium 3.9 mmol/L (3.5-5.1)
[2023-02-10] MEDS: ASPIRIN 81 MG ECTAB PO SCH (09:27)
[2023-02-10] MEDS: AMIODARONE 200 MG TAB PO SCH (09:27)
[2023-02-10] MEDS: BENZONATATE 100 MG CAPSULE PO SCH ×3 (09:27→21:09)
[2023-02-10] MEDS: APIXABAN 5 MG TABLET PO SCH ×2 (09:27→21:08)
[2023-02-10] MEDS: CHOLECALCIFEROL 1,000 UNITS 25 MCG TAB PO SCH (09:28)
[2023-02-10] MEDS: bisacodyL 5 MG TABEC PO SCH (09:28)
[2023-02-10] MEDS: CEROVITE ADV FORMULA TAB PO SCH ×2 (09:29→21:08)
[2023-02-10] MEDS: guaiFENesin 600 MG TABCR PO SCH ×2 (09:29→21:08)
[2023-02-10] MEDS: METOPROLOL SUCC 50MG EXT REL TAB PO SCH ×2 (09:29→21:07)
[2023-02-10] MEDS: POTASSIUM CHLORIDE CRTAB 20 MEQ TABCR PO SCH (09:30)
[2023-02-10] MEDS: LOSARTAN POTASSIUM 50 MG TAB PO SCH (09:30)
[2023-02-10] MEDS: hydroCHLOROthiazide 25 MG TAB PO SCH (09:30)
[2023-02-10] MEDS: dexAMETHasone 6 MG in SYRINGE 0 ML IV SCH (09:42)
[2023-02-10] MEDS: POLYETHYLENE (MIRALAX) 17 GM PACK PO SCH (09:42)
--- NOTE | 2023-02-10 13:03 | Hospitalist Progress Note ---
Date of Service February 10, 2023 Assessment & Plan (1) COVID-19: (2) Paroxysmal atrial fibrillation: (3) Pacemaker: (4) Ascending aortic aneurysm: (5) HTN (hypertension): (6) HLD (hyperlipidemia): (7) LBBB (left bundle branch block): (8) Osteoporosis: Plan: This is an 82-year-old female with PMHx of HTN, HLD, LBBB, paroxysmal A-fib with tachybradycardia syndrome status post dual-chamber pacemaker implanted on 12/21/2022 and recent hospital stay in early December this year., macular degeneration, thoracic aortic aneurysm, hyperparathyroidism, osteoporosis presents to the hospital with viral symptoms including weakness, fatigue, nausea and vomiting. Here patient fell asleep and found that her O2 sats were dropping near 80%, she tested positive for COVID-19 and is found to have UA which is suspicious for infection. She is being managed for the following: COVID-19 Weakness, nausea, vomiting Hypokalemia - COVID-19 positive 02/09 - Procalcitonin neg and CRP 1.25, wbc wnl. No lymphopenia - CXR reviewed: Showing the dual-lead left subclavian pacer in place, no pneumothorax, no pleural effusion, moderate cardiomegaly unchanged, no evidence for pulmonary edema, no consolidation to suggest pneumonia, linear right basilar densities favor atelectasis - initially required upto 2L NC O2, currently stable on RA - will c/w steroid today. - monitor and replete electrolytes. UTI -UA appears suspicious for infection, trend urine culture, pt is asymptomatic -Administered IV ceftriaxone in the ER, continue, await c/s. Paroxysmal A-fib with tachybradycardia syndrome status post recent dual-chamber pacemaker implantation on 12/21/2022 HTN LBBB HLD Ascending aortic aneurysm -Aneurysm measures 5.0 to 5.4 cm, stable diameter per CT 07/2021, follows with cardiology, Dr. Ponce as an outpatient, continued observation, for now conservative management patient was not interested in invasive procedures/surgery during her most recent outpatient visit on 01/21/2023 -Cardiology recently reduced amiodarone to 200 mg once daily -Continue current dose of metoprolol succinate and apixaban, per outpatient epic note metoprolol was being considered to be reduced to 50 mg once daily pending review of follow-up pacemaker interrogation -Continue home medications as prescribed -f/u w/ cardio on dc as prior. DVT: Eliquis, teds, scds Lines: 2 PIV FEN/GI: HH diet CODE: Full code Dispo: pt/ot eval, await ucx c/s. likely kellie. Admission and Anticipated Discharge Date Admission Date: February 09, 2023 Subjective Patient seen and examined at bedside. Patient was lying in bed, on room air, NAD, reports improving cough, denies further nausea and vomiting, reports eating okay now, reports moving bowels okay. Patient reports feeling better today. Physical Exam Physical Exam: GENERAL: Alert and oriented x3. NAD, on RA. HEENT: No pallor, no icterus. Pupils equal, round and reactive to light. Oral mucosa moist. NECK: No JVD, no neck masses. HEART: S1 and S2 heard. Regular rate and rhythm. No murmur, no gallop. RESPIRATORY SYSTEM: Normal AP diameter. No accessory muscle use. No wheezing, no crackles. ABDOMEN: Soft, bowel sounds present, nontender, no distention. CENTRAL NERVOUS SYSTEM: No facial droop. Speech is clear. Obeys simple commands. Moves extremities. EXTREMITIES: Trace BLE edema, no erythema seen. Results & Data Results & Data Vital Signs (Past 12 Hours) Vital Signs Temp Pulse Resp BP BP Pulse Ox O2 Del Method 02/10/23 11:22 36.7 C 74 15 106/72 93 Room Air 02/10/23 07:47 36.6 C 63 16 119/71 96 Nasal Cannula 02/10/23 07:27 Nasal Cannula 02/10/23 03:44 36.8 C 60 18 124/79 95 Room Air O2 Flow Rate 02/10/23 11:22 02/10/23 07:47 2 02/10/23 07:27 2 02/10/23 03:44
--- NOTE | 2023-02-10 13:05 | Electrocardiogram Report ---
Test Reason : Blood Pressure : / mmHG Vent. Rate : 064 BPM Atrial Rate : 064 BPM P-R Int : 294 ms QRS Dur : 096 ms QT Int : 454 ms P-R-T Axes : 056 -38 -54 degrees QTc Int : 468 ms Atrial-paced rhythm with prolonged AV conduction Left axis deviation Low voltage QRS Cannot rule out Anterior infarct , age undetermined T wave abnormality, consider lateral ischemia Abnormal ECG When compared with ECG of 21-DEC-2022 11:28, Minimal criteria for Anterior infarct are now Present Inverted T waves have replaced nonspecific T wave abnormality in Inferior leads T wave inversion now evident in Lateral leads Confirmed by Umang Santos ([id number]) on 02/10/2023 1:04:51 PM Referred By: REFERRED SELF Confirmed By:Umang Santos
[2023-02-10] MEDS: cefTRIAXone SODIUM 2,000 MG in DEXTROSE 5 % MINI-B 50 ML IV SCH (13:18)
[2023-02-10] MEDS: REMDESIVIR 100 MG in SODIUM CHLORIDE 0.9% 230 ML IV SCH (13:18)
[2023-02-10] MEDS: ATORVASTATIN 20 MG TAB PO SCH (21:08)
[2023-02-11 07:44] LABS: Hematocrit (blood only) 36.1 % (37.0-47.0); Hemoglobin 12.5 g/dl (12.0-16.0); Mean Corpuscular Hemoglobin 31.3 pg (25.0-34.0); Mean Corpuscular Hgb Conc 34.6 g/dL (32.0-36.0); Mean Corpuscular Volume 90.5 fL (80.0-100.0); Mean Platelet Volume 9.7 fL (9.4-12.4); Platelet Count 225 K/uL (130-400); RDW Coefficient of Variation 13.2 % (11.5-14.5); RDW Standard Deviation 43.6 fL (36.4-46.3); Red Blood Count 3.99 M/uL (4.20-5.40); White Blood Count 8.79 K/ul (4.8-10.8)
[2023-02-11 08:01] LABS: BUN Creatinine Ratio 24.7 (10-20); Calcium 9.1 mg/dl (8.6-10.3); Est GFR (African American) 77.3 ml/min; Est GFR (Non-African American) 66.7 ml/min; Magnesium 2.1 mg/dl (1.7-2.4); Potassium 3.4 mmol/L (3.5-5.1)
[2023-02-11] MEDS ORDERED: POTASSIUM CHLORIDE CRTAB 20 MEQ TABCR PO STA (08:18)
[2023-02-11] MEDS: dexAMETHasone 6 MG in SYRINGE 0 ML IV SCH (09:28)
[2023-02-11] MEDS: cefTRIAXone SODIUM 2,000 MG in DEXTROSE 5 % MINI-B 50 ML IV SCH (09:28)
[2023-02-11] MEDS: CEROVITE ADV FORMULA TAB PO SCH (09:32)
[2023-02-11] MEDS: CHOLECALCIFEROL 1,000 UNITS 25 MCG TAB PO SCH (09:32)
[2023-02-11] MEDS: guaiFENesin 600 MG TABCR PO SCH (09:32)
[2023-02-11] MEDS: APIXABAN 5 MG TABLET PO SCH (09:33)
[2023-02-11] MEDS: hydroCHLOROthiazide 25 MG TAB PO SCH (09:33)
[2023-02-11] MEDS: LOSARTAN POTASSIUM 50 MG TAB PO SCH (09:33)
[2023-02-11] MEDS: bisacodyL 5 MG TABEC PO SCH (09:33)
[2023-02-11] MEDS: ASPIRIN 81 MG ECTAB PO SCH (09:33)
[2023-02-11] MEDS: METOPROLOL SUCC 50MG EXT REL TAB PO SCH (09:33)
[2023-02-11] MEDS: POLYETHYLENE (MIRALAX) 17 GM PACK PO SCH (09:33)
[2023-02-11] MEDS: AMIODARONE 200 MG TAB PO SCH (09:33)
[2023-02-11] MEDS: BENZONATATE 100 MG CAPSULE PO SCH (09:34)
[2023-02-11] MEDS: POTASSIUM CHLORIDE CRTAB 20 MEQ TABCR PO SCH (09:34)
[2023-02-11] MEDS: REMDESIVIR 100 MG in SODIUM CHLORIDE 0.9% 230 ML IV SCH (11:55)
--- NOTE | 2023-02-11 12:38 | Discharge Summary ---
Date of Service February 11, 2023 Admission HPI Per Admitting Provider This is an 82-year-old female with PMHx of HTN, HLD, LBBB, paroxysmal A-fib with tachybradycardia syndrome status post dual-chamber pacemaker implanted on 12/21/2022 and recent hospital stay in early December this year., macular degeneration, thoracic aortic aneurysm, hyperparathyroidism, osteoporosis presents to the hospital with viral symptoms including weakness, fatigue, nausea and vomiting. Here patient fell asleep and found that her O2 sats were dropping near 80%, she tested positive for COVID-19 and is found to have UA which is suspicious for infection. Pt started having viral like symptoms on Saturday afternoon, this included generalized malaise, fatigue, nausea, and vomited twice, as well as decreased appetite due to nausea. She feels better at this point since being given Zofran in the ER and wants to try to eat something since she has not truly had anything since Saturday. She hasn't had any fluids today because of nausea, but received 1 bag IV fluids here in the ER. Denies any fevers. Patient denies any abdominal pain diarrhea or constipation. She denies feeling specifically short of breath or having a cough. Lives at home with her , and her daughter is present with her at bedside. Patient has been vaccinated against COVID and received multiple booster shots, this is the first time that she has tested positive for it. She took all her morning medications today. Patient denies any urinary symptoms including increased frequency, hematuria, dysuria, etc. Admission Exam Per Admitting Provider General: awake, alert, no apparent distress, keeps her eyes closed during majority of the exam, Head: Normocephalic, atraumatic ENT: PERRL, EOMI, no pharyngeal exudate, mucous membranes moist Chest: Clear to auscultation, on 1L via NC with O2 sats at 97 to 98% at rest, no adventitious breath sounds Cardiac: Previous pacer incision is well-healed on left upper chest wall, regular rate and rhythm, no murmur, no JVD, normal peripheral pulses, good capillary refill Abdominal: NABS x 4 quadrants, soft, nondistended, nontender to palpation, no rebound or guarding Extremities: Normal inspection, no peripheral edema or erythema, calfs nontender to palpation Psych: Normal mood and affect Neuro: AAO x 3, strength intact bilaterally and rated 5/5, no motor deficits, speech is clear, no peripheral sensory deficits Principal Diagnosis Infection due to COVID-19 virus Generalized weakness, nausea, vomiting UTI Discharge Exam GENERAL: Alert and oriented x3. NAD, on RA. HEENT: No pallor, no icterus. Pupils equal, round and reactive to light. Oral mucosa moist. NECK: No JVD, no neck masses. HEART: S1 and S2 heard. Regular rate and rhythm. No murmur, no gallop. RESPIRATORY SYSTEM: Normal AP diameter. No accessory muscle use. No wheezing, no crackles. ABDOMEN: Soft, bowel sounds present, nontender, no distention. CENTRAL NERVOUS SYSTEM: No facial droop. Speech is clear. Obeys simple commands. Moves extremities. EXTREMITIES: Trace BLE edema, no erythema seen. Discharge Data Allergies Allergy/AdvReac Type Severity Reaction Status Date / Time No Known Allergies Allergy Verified 12/18/22 22:54 Consultations 02/09/23 11:59 ED Decision to Admit Stat Hospital Course (1) COVID-19: (2) Paroxysmal atrial fibrillation: (3) Pacemaker: (4) Ascending aortic aneurysm: (5) HTN (hypertension): (6) HLD (hyperlipidemia): (7) LBBB (left bundle branch block): (8) Osteoporosis: This is an 82-year-old female with PMHx of HTN, HLD, LBBB, paroxysmal A-fib with tachybradycardia syndrome status post dual-chamber pacemaker implanted on 12/21/2022 and recent hospital stay in early December this year., macular degeneration, thoracic aortic aneurysm, hyperparathyroidism, osteoporosis presents to the hospital with viral symptoms including weakness, fatigue, nausea and vomiting. Here patient fell asleep and found that her O2 sats were dropping near 80%, she tested positive for COVID-19 and is found to have UA which is suspicious for infection. She was managed for the following: COVID-19 Weakness, nausea, vomiting Hypokalemia - COVID-19 positive 02/09 - Procalcitonin neg and CRP 1.25, wbc wnl. No lymphopenia - CXR reviewed: Showing the dual-lead left subclavian pacer in place, no pneumothorax, no pleural effusion, moderate cardiomegaly unchanged, no evidence for pulmonary edema, no consolidation to suggest pneumonia, linear right basilar densities favor atelectasis - initially required upto 2L NC O2, currently stable on RA x > 24 hrs - recieved 2-3 days of steroid and remdesivir -Hemodynamically stable, for discharge today. UTI -UA appears suspicious for infection, trend urine culture, pt is asymptomatic -Administered IV ceftriaxone in the ER, culture and sensitivity reviewed, to p.o. antibiotic on discharge. Paroxysmal A-fib with tachybradycardia syndrome status post recent dual-chamber pacemaker implantation on 12/21/2022 HTN LBBB HLD Ascending aortic aneurysm -Aneurysm measures 5.0 to 5.4 cm, stable diameter per CT 07/2021, follows with cardiology, Dr. Ponce as an outpatient, continued observation, for now conservative management patient was not interested in invasive procedures/surgery during her most recent outpatient visit on 01/21/2023 -Cardiology recently reduced amiodarone to 200 mg once daily -Continue current dose of metoprolol succinate and apixaban, per outpatient epic note metoprolol was being considered to be reduced to 50 mg once daily pending review of follow-up pacemaker interrogation -Continue home medications as prescribed -f/u w/ cardio on dc as prior. DVT: Eliquis, teds, scds Lines: 2 PIV FEN/GI: HH diet CODE: Full code Patient is being discharged home with following instruction at the point of discharge: Follow-up with your primary care physician within a week time and likely you will need labs CBC/CMP/magnesium/phosphorus. You were diagnosed with COVID-19 infection on 02/09/2023, maintain self-isolation until 02/14 then maintain facial mask when around people for next 5 days. You are being discharged on antibiotic for UTI, complete the course. Take your medications as prescribed. Please make sure that you are able to get your medications today by calling your pharmacy before you leave the hospital so that your treatment continuity is not broken. Home Health Attestation I certify that this patient is under my care and that I, or a physicians healthcare administrative assistant working with me, had a face to-face encounter that meets the home health [id number] encounter requirements with this patient. The encounter with the patient was in whole, or in part, for the following medical condition, which is the primary reason for home health care (list medical condition): I certify that, based on my findings, the following services are medically necessary home health services: My clinical findings support the need for the above services because: Further, I certify that my clinical findings support that this patient is homebound (i.e. absences from home require considerable and taxing effort and are for medical reasons or scientology services or infrequently or of short duration when for other reasons) because: Certification for Home Health Services: Based on the above findings, I certify that this patient is confined to the home and needs intermittent intermediate care, physical therapy and/or speech therapy or continues to need occupational therapy. The patient is under my care, and I have initiated the establishment of the plan of care. This patient will be followed by a physician who will periodically review the plan of care. Total Time Total Time Spent Total Time Spent (In Minutes): 45 Discharge Plan Discharge Items Patient Disposition: Home - Self-Care Reason For Visit: COVID, UTI Discharge Diagnosis: Infection due to COVID-19 virus Generalized weakness, nausea, vomiting UTI Activity: Resume your previous activity Non-emergency contact: Primary Care Provider Call non-emergency contact if: you have any medication questions, your symptoms worsen and your temperature is above 101.5 Follow-up/Referrals: Hamilton Graham MD [Primary Care Provider] - (Date & Time 02/14/2023 11:20 AM Provider Emilia Delatorre MD Department General Internal Medicine [facility] ) Diet: Heart Healthy Addtl Attending Provider Instructions: Follow-up with your primary care physician within a week time and likely you will need labs CBC/CMP/magnesium/phosphorus. You were diagnosed with COVID-19 infection on 02/09/2023, maintain self-isolation until 02/14 then maintain facial mask when around people for next 5 days. You are being discharged on antibiotic for UTI, complete the course. Take your medications as prescribed. Please make sure that you are able to get your medications today by calling your pharmacy before you leave the hospital so that your treatment continuity is not broken. Pending Studies at Discharge: Yes Stand-Alone Forms: [employer], Smoking Cessation Medications and DC Order Prescriptions: New benzonatate 100 mg Capsule 100 mg PO TID 5 Days Qty: 15 0RF guaifenesin [Mucinex] 600 mg Tablet Extended Release 12hr 1,200 mg PO Q12 5 Days Qty: 20 0RF cefdinir 300 mg capsule 300 mg PO BID 5 Days Qty: 10 0RF Probiotic 3 billion cell capsule 3,000 mmu cells PO DAILY 7 Days Qty: 7 0RF Rx Instructions: administer with a meal Continued losartan 50 mg tablet 50 mg PO QAM cholecalciferol (vitamin D3) [Vitamin D3] 25 mcg (1,000 unit) Capsule 25 mcg PO QAM Ocuvite Eye Health 50 mg-15 unit- 4.5 mg-2.5 mg Tablet,Chewable 1 tab PO BID atorvastatin 20 mg tablet 20 mg PO QPM hydrochlorothiazide 25 mg tablet 25 mg PO QAM aspirin 81 mg Tablet,Delayed Release (Dr/Ec) 81 mg PO QAM Eliquis 5 mg Tablet 5 mg PO BID Qty: 60 0RF metoprolol succinate 50 mg tablet extended release 24 hr 50 mg PO BID Qty: 60 0RF potassium chloride 20 mEq tablet extended release 20 meq PO DAILY Qty: 30 0RF amiodarone 200 mg tablet 200 mg PO QAM Discharge Orders: Discharge Order (Routine); Ordered 02/11/23 Ordered By: Aranza Oliver Admission Data Admit Date/Time: 02/09/23 12:58 Attending Provider: Aranza Oliver Admit Provider: Amos Rivers Primary Care Provider: Hamilton Graham Other Providers: Amos Rivers
== END 2023-02-11 14:18 | disposition home or self-care (01) | DRG 178 ==
LOC: ED 08:42 → EDINP 12:58 → SUATTDRO 12:58 → 2N 15:31